=== PATIENT | female | born 1955 | race Caucasian/White ===

== ENCOUNTER 2018-10-18 01:57 | Inpatient (IN) | payer OTHER ==
[2018-10-18] MEDS ORDERED: NITROGLYCERIN SL TABS 0.4 MG TAB SUBLINGUAL STA (02:26)
[2018-10-18] MEDS ORDERED: ASPIRIN 81 MG PO STA (02:26)
[2018-10-18 02:37] LABS: Basophils # (A) 0.1 k/uL (0-0.2); Basophils % (A) 1 %; Eosinophils # (A) 0.4 k/uL (0-0.7); Eosinophils % (A) 4 %; HGB 15.1 gm/dL (11.4-16.0); Lymphocytes # (A) 4.6 k/uL (1.0-4.8); Lymphocytes % (A) 43 %; MCH 29.5 pg (25.0-35.0); MCHC 32.8 g/dL (31.0-37.0); Mean Platelet Volume 6.8; Monocytes # (A) 0.7 k/uL (0-1.0); Monocytes % (A) 6 %; Neutrophils # (A) 4.7 k/uL (1.3-7.7); Neutrophils % (A) 44 %; Platelet Count 290 k/uL (150-450); RBC 5.11 m/uL (3.80-5.40); RDW 12.7 % (11.5-15.5); WBC 10.8 k/uL (3.8-10.6)
[2018-10-18 02:45] LABS: Albumin 4.5 g/dL (3.5-5.0); Calcium 9.8 mg/dL (8.4-10.2); Magnesium 2.1 mg/dL (1.6-2.3); Potassium 4.1 mmol/L (3.5-5.1); Total Bilirubin 0.4 mg/dL (0.2-1.3); Total Protein 7.6 g/dL (6.3-8.2)
--- NOTE | 2018-10-18 02:52 | ED ---
Chest Pain HPI - General Chief Complaint: Chest Pain Stated Complaint: chest pain Time Seen by Provider: 10/18/18 02:26 Source: patient Mode of arrival: wheelchair Limitations: no limitations - History of Present Illness Initial Comments: This patient is a 63-year-old woman who presents to be evaluated for substernal chest pain. The patient states that the symptoms have developed around 1 AM. She had been sleeping, then woke up to use the bathroom. Patient states that she had a bowel movement and then when she went back to bed noted that she was having some substernal pain. She is not able to characterize the quality of the pain. It was moderate intensity, she did not notice any worsening or relieving factors. She states that she took 2 baby aspirin. The pain did subside after about 10 minutes or so. There were no associated symptoms. The patient notes that she had a couple of similar episodes to this over the previous weekend and she had gone into see her physician yesterday about them. Patient denies any anginal symptoms. She does note that her father and a sibling both had heart attacks in their 50s MD Complaint: chest pain Onset/Timin -: hour(s) Onset: during rest Pain Location: substernal Pain Radiation: RUE, LUE Severity: moderate Quality: other (Unable to characterize) Consistency: now resolved Improves With: nothing Worsens With: nothing Treatments Prior to Arrival: none - Related Data Home Medications Medication Instructions Recorded Confirmed Aspirin [Adult Low Dose Aspirin EC] 81 mg PO DAILY PRN 10/18/18 10/18/18 Cyclobenzaprine [Flexeril] 5 mg PO HS PRN 10/18/18 10/18/18 Loratadine 10 mg PO DAILY PRN 10/18/18 10/18/18 Multivitamin [Multivitamins Adult 1 tab PO DAILY 10/18/18 10/18/18 Gummies] Allergies Allergy/AdvReac Type Severity Reaction Status Date / Time latex AdvReac Unknown Verified 10/18/18 07:36 Review of Systems ROS Statement: Those systems with pertinent positive or pertinent negative responses have been documented in the HPI. ROS Other: All systems not noted in ROS Statement are negative. Constitutional: Denies: fever, chills Respiratory: Denies: cough, dyspnea Cardiovascular: Reports: chest pain. Denies: palpitations, orthopnea, edema, syncope Gastrointestinal: Denies: abdominal pain, nausea, vomiting, diarrhea, melena, hematochezia Genitourinary: Denies: dysuria, hematuria Musculoskeletal: Denies: back pain Skin: Denies: rash Neurological: Denies: headache, weakness, numbness EKG Findings - EKG Results: EKG: interpreted by RASTA, sinus rhythm (Rate approximately 85 bpm) - Dysrhythmias: Sinus rhythms and dysrhythmias: sinus rhythm - Blocks, Mcdade, Hypertrophy, ST Abn: AV and intraventricular conduction: right bundle branch block (fixed/intermittent, complete/incomplete) (Incomplete) QRS axis and voltage: left axis deviation (-30 to -90) Chamber hypertrophy or enlargement: only voltage criteria for left ventricular hypertrophy Past Medical History Past Medical History: No Reported History History of Any Multi-Drug Resistant Organisms: None Reported Past Surgical History: Tonsillectomy Past Psychological History: No Psychological Hx Reported Smoking Status: Never smoker Past Alcohol Use History: None Reported Past Drug Use History: None Reported - Past Family History Mother Family Medical History: COPD Father Family Medical History: Coronary Artery Disease (CAD), Myocardial Infarction ([place]) Additional Family Medical History / Comment(s): age 58 passed from [place] Brother(s) Family Medical History: Myocardial Infarction ([place]) Additional Family Medical History / Comment(s): [place] age 43 Sister(s) Additional Family Medical History / Comment(s): PVD Son(s) Family Medical History: No Reported History Daughter(s) Family Medical History: No Reported History General Exam Limitations: no limitations General appearance: alert, in no apparent distress Head exam: Present: atraumatic, normocephalic Eye exam: Present: normal appearance. Absent: scleral icterus, conjunctival injection ENT exam: Present: normal oropharynx Respiratory exam: Present: normal lung sounds bilaterally. Absent: respiratory distress, wheezes, rales, rhonchi, stridor Cardiovascular Exam: Present: regular rate, normal rhythm, systolic murmur (Grade 2 systolic ejection murmur at sternal border). Absent: diastolic murmur, rubs, gallop GI/Abdominal exam: Present: soft. Absent: distended, tenderness, guarding, rebound, rigid, mass, pulsatile mass Extremities exam: Present: normal inspection, normal capillary refill. Absent: pedal edema, calf tenderness Back exam: Present: normal inspection. Absent: CVA tenderness (R), CVA tenderness (L) Neurological exam: Present: alert Skin exam: Present: warm, dry, intact, normal color. Absent: rash Course Vital Signs 10/18/18 10/18/18 10/18/18 02:04 03:04 03:44 Temperature 98.2 F Pulse Rate 92 80 80 Respiratory 20 16 16 Rate Blood Pressure 199/109 179/96 165/92 O2 Sat by Pulse 97 96 98 Oximetry Chest Pain MDM - [facility] [place] Patient's 63-year-old woman with chest pain concerning for coronary disease. Patient be admitted for serial cardiac enzymes, telemetry monitoring, cardiology consultation. Initial workup negative. Disposition Clinical Impression: Chest pain, Elevated transaminase level Disposition: ADMITTED IP TO THIS HOSP Condition: Fair
[2018-10-18 03:00] LABS: D-Dimer 0.33 mg/L FEU (<0.60); Partial Thromboplastin Time 28.4 sec (22.0-30.0)
[2018-10-18] MEDS ORDERED: NITROGLYCERIN SL TABS 0.4 MG TAB SUBLINGUAL PRN (04:39)
--- NOTE | 2018-10-18 06:00 | XR ---
EXAM: XR Chest, 2 Views CLINICAL HISTORY: ITS.REASON XR Reason: Chest Pain TECHNIQUE: Frontal and lateral views of the chest. COMPARISON: No relevant prior studies available. FINDINGS: No cardiomegaly. Possible bronchial wall thickening. No overt edema, consolidation or other acute cardiopulmonary findings. IMPRESSION: Possible bronchial wall thickening.
--- NOTE | 2018-10-18 08:57 | P.CRDCN ---
History of Present Illness Consult date: 10/18/18 History of present illness: This is a 63-year-old female with no significant past medical history was been experiencing chest discomfort mostly at night. The pain is felt like a vague discomfort in the middle of the chest with radiation to both arms. Associated with mild nausea and indigestion feeling. The pain was intense and at a level of 9 on a scale of 1-10 and lasted about 20 minutes. Patient took couple of aspirins and came to hospital last night. Since admission patient is having mild vague discomfort but not bad enough to require any medication. Her EKG showed sinus rhythm with evidence of left axis deviation and incomplete right bundle-branch block. One set of enzymes is within normal limits. Chest x-ray showed evidence of bronchial wall thickening. Systemic fairly comfortable at this time. Her brother and father had a heart problem in their 40s and 50s. Her pains are suggestive of possible angina, though her risk factor profile is intermediate. The possibility of esophagitis also to be considered. We'll continue to monitor cardiac enzymes. We'll get an echocardiogram. If the enzymes are negative, patient could be evaluated by stress echo in the morning. Review of Systems As per HPI Past Medical History Past Medical History: No Reported History History of Any Multi-Drug Resistant Organisms: None Reported Past Surgical History: Tonsillectomy Past Anesthesia/Blood Transfusion Reactions: No Reported Reaction Past Psychological History: No Psychological Hx Reported Smoking Status: Never smoker Past Alcohol Use History: None Reported Past Drug Use History: None Reported - Past Family History Mother Family Medical History: COPD Father Family Medical History: Coronary Artery Disease (CAD), Myocardial Infarction ([place]) Additional Family Medical History / Comment(s): age 58 passed from [place] Brother(s) Family Medical History: Myocardial Infarction ([place]) Additional Family Medical History / Comment(s): [place] age 43 Sister(s) Additional Family Medical History / Comment(s): PVD Son(s) Family Medical History: No Reported History Daughter(s) Family Medical History: No Reported History Medications and Allergies Home Medications Medication Instructions Recorded Confirmed Type Aspirin [Adult Low Dose Aspirin EC] 81 mg PO DAILY PRN 10/18/18 10/18/18 History Cyclobenzaprine [Flexeril] 5 mg PO HS PRN 10/18/18 10/18/18 History Loratadine 10 mg PO DAILY PRN 10/18/18 10/18/18 History Multivitamin [Multivitamins Adult 1 tab PO DAILY 10/18/18 10/18/18 History Gummies] Allergies Allergy/AdvReac Type Severity Reaction Status Date / Time latex AdvReac Unknown Verified 10/18/18 07:36 Physical Exam Vitals: Vital Signs Temp Pulse Pulse Resp BP BP Pulse Ox 10/18/18 08:00 73 16 10/18/18 05:39 98.4 F 73 16 144/88 95 10/18/18 03:44 80 16 165/92 98 10/18/18 03:04 80 16 179/96 96 10/18/18 02:04 98.2 F 92 20 199/109 97 Intake and Output 10/17/18 10/18/18 10/18/18 22:59 06:59 14:59 Other: Voiding Method Toilet Toilet Weight 81.193 kg GENERAL EXAM: Patient is alert and oriented and doesn't appear to be in any acute distress HEENT: Normocephalic. Normal reaction of pupils, equal size, normal range of extraocular motion. No erythema or exudates in the throat. NECK: No masses, no nuchal rigidity. CHEST: No chest wall deformity. LUNGS: Equal air entry with no crackles or wheeze. HEART: S1 and S2 normal with no audible mumurs or gallops. Regular rhythm, femorals equal on both sides.. ABDOMEN: No hepatosplenomegaly, normal bowel sounds, no guarding or rigidity. SKIN: No rashes CENTRAL NERVOUS SYSTEM: No focal deficits. EXTREMITIES: No cyanosis, clubbing or edema. Results 10/18/18 02:20 10/18/18 02:20 Cardiac Enzymes 10/18/18 10/18/18 Range/Units 02:20 02:20 AST 61 H (14-36) U/L Troponin I <0.012 (0.000-0.034) ng/mL Coagulation 10/18/18 Range/Units 02:20 PT 11.0 (9.0-12.0) sec APTT 28.4 (22.0-30.0) sec CBC 10/18/18 Range/Units 02:20 WBC 10.8 H (3.8-10.6) k/uL RBC 5.11 (3.80-5.40) m/uL Hgb 15.1 (11.4-16.0) gm/dL Hct 46.0 (34.0-46.0) % Plt Count 290 (150-450) k/uL Comprehensive Metabolic Panel 10/18/18 Range/Units 02:20 Sodium 140 (137-145) mmol/L Potassium 4.1 (3.5-5.1) mmol/L Chloride 107 (98-107) mmol/L Carbon Dioxide 23 (22-30) mmol/L BUN 22 H (7-17) mg/dL Creatinine 0.85 (0.52-1.04) mg/dL Glucose 106 H (74-99) mg/dL Calcium 9.8 (8.4-10.2) mg/dL AST 61 H (14-36) U/L ALT 77 H (9-52) U/L Alkaline Phosphatase 144 H (38-126) U/L Total Protein 7.6 (6.3-8.2) g/dL Albumin 4.5 (3.5-5.0) g/dL Current Medications Generic Name Dose Route Start Last Admin Trade Name Freq PRN Reason Stop Dose Admin Aspirin 325 mg 10/19/18 09:00 Aspirin PO DAILY ERIC Nitroglycerin 0.4 mg 10/18/18 04:39 Nitrostat SUBLINGUAL Q5M PRN Chest Pain Intake and Output 10/17/18 10/18/18 10/18/18 22:59 06:59 14:59 Other: Voiding Method Toilet Toilet Weight 81.193 kg 10/18/18 02:20 10/18/18 02:20 EKG Interpretations (text) Sinus rhythm with a left axis deviation and also incomplete right bundle-branch block Assessment and Plan (1) Chest pain Current Visit: Yes Status: Acute Code(s): R07.9 - CHEST PAIN, UNSPECIFIED SNOMED Code(s): 86356234 Plan: The possibility of angina cannot be excluded. Patient will be treated with nitrates and aspirin. We'll may also try Mylanta and Maalox. We'll get an echo cardiogram done. If cardiac enzymes and echo are normal, we'll proceed with stress echocardiogram. If the cardiac enzymes are positive, patient may need a cardiac cath for definitive diagnosis.
[2018-10-18] MEDS ORDERED: NITROGLYCERIN OINT 1 INCH/GM PACKET TOPICAL STA (08:58)
[2018-10-18] MEDS ORDERED: ASPIRIN 81 MG PO PRN (12:46)
[2018-10-18] MEDS ORDERED: LORATADINE 10 MG TAB PO PRN (12:46)
--- NOTE | 2018-10-18 12:47 | P.HPIM ---
History of Present Illness Chief Complaint: Chest pain This very pleasant 63-year-old female who comes in to the ER for above-mentioned compress. The patient said that she was sleeping and woke up around 1 AM to go to the restroom. She said that she had a small bowel movement and she when she was coming back she suddenly started having pain in the substernal area which is radiating down to both upper arms. She was diaphoretic as well. She was less short of breath as well as that time. She took 2 aspirins and the pain started to subside. Her brought her over here for further evaluation and management. The patient otherwise does not complain of any abdominal pain, nausea and vomiting, or diarrhea constipation, no tingling numbness on in the extremities, and no itch or rash. Next ER course-temperature 98.2 pulse 92 respiration 20 blood pressure the time of admission was 199/109. Blood pressure the time examination was 125/80. Labwork done in the ER showed a BB 6) hemoglobin 15.1 platelets 290 d-dimer was 0.33 sodium 140 potassium 4.1 bun 22 creatinine 0.852 tropes were negative lipase was 82. Patient the time examination was not having any chest pain and was lying comfortably on the bed and answering questions, calmly and cooperatively. Review of Systems All systems: negative Past Medical History Past Medical History: No Reported History History of Any Multi-Drug Resistant Organisms: None Reported Past Surgical History: Tonsillectomy Past Anesthesia/Blood Transfusion Reactions: No Reported Reaction Past Psychological History: No Psychological Hx Reported Smoking Status: Never smoker Past Alcohol Use History: None Reported Past Drug Use History: None Reported - Past Family History Mother Family Medical History: COPD Father Family Medical History: Coronary Artery Disease (CAD), Myocardial Infarction ([place]) Additional Family Medical History / Comment(s): age 58 passed from [place] Brother(s) Family Medical History: Myocardial Infarction ([place]) Additional Family Medical History / Comment(s): [place] age 43 Sister(s) Additional Family Medical History / Comment(s): PVD Son(s) Family Medical History: No Reported History Daughter(s) Family Medical History: No Reported History Medications and Allergies Home Medications Medication Instructions Recorded Confirmed Type Aspirin [Adult Low Dose Aspirin EC] 81 mg PO DAILY PRN 10/18/18 10/18/18 History Cyclobenzaprine [Flexeril] 5 mg PO HS PRN 10/18/18 10/18/18 History Loratadine 10 mg PO DAILY PRN 10/18/18 10/18/18 History Multivitamin [Multivitamins Adult 1 tab PO DAILY 10/18/18 10/18/18 History Gummies] Allergies Allergy/AdvReac Type Severity Reaction Status Date / Time latex AdvReac Unknown Verified 10/18/18 07:36 Physical Exam Vitals: Vital Signs Temp Pulse Pulse Pulse Resp BP BP 10/18/18 12:00 73 84 16 10/18/18 11:16 97.7 F 84 16 125/80 10/18/18 08:00 73 16 10/18/18 05:39 98.4 F 73 16 144/88 10/18/18 03:44 80 16 165/92 10/18/18 03:04 80 16 179/96 10/18/18 02:04 98.2 F 92 20 199/109 Pulse Ox 10/18/18 12:00 10/18/18 11:16 95 10/18/18 08:00 10/18/18 05:39 95 10/18/18 03:44 98 10/18/18 03:04 96 10/18/18 02:04 97 Intake and Output 10/17/18 10/18/18 10/18/18 22:59 06:59 14:59 Other: Voiding Method Toilet Toilet Weight 81.193 kg On exam, alert and oriented x3. HEENT: Conjunctivae normal. eyes normal. NECK: No JVD. No thyroid enlargement. No LNs CARDIOVASCULAR: S1-S2 positive RESPIRATION: Breath sounds are equally both sides no rhonchi rales or wheezing ABDOMEN: Soft, nontender . No guarding. no masses palpable. No ascites, No hepatosplenomegaly.Bowel sounds heard. LEGS: No edema. no swelling NERVOUS SYSTEM: Cranial N 2-12 grossly normal. Moves all 4 limbs. No focal deficits. No sensory deficit. No signs of cerebellar dysfucntion. Skin: no ulcer no rash Results CBC & Chem 7: 10/18/18 02:20 10/18/18 02:20 Labs: Abnormal Lab Results - Last 24 Hours (Table) 10/18/18 10/18/18 Range/Units 02:20 02:20 WBC 10.8 H (3.8-10.6) k/uL BUN 22 H (7-17) mg/dL Glucose 106 H (74-99) mg/dL AST 61 H (14-36) U/L ALT 77 H (9-52) U/L Alkaline Phosphatase 144 H (38-126) U/L Thrombosis Risk Factor Assmnt - Choose All That Apply Any of the Below Risk Factors Present?: Yes Each Factor Represents 1 point: Obesity (BMI >25) Other Risk Factors: Yes Each Risk Factor Represents 2 Points: Age 61-74 years Other congenital or acquired thrombophilia - If yes, enter type in comment: No Thrombosis Risk Factor Assessment Total Risk Factor Score: 3 Thrombosis Risk Factor Assessment Level: Moderate Risk Assessment and Plan Assessment: - Chest pain rule out angina - Obesity - No significant past medical history Plan - Patient is admitted to observation with telemetry - We'll monitor patient troponin levels - Cardiology consulted and appreciate the recommendations - Plan is to have troponin levels monitored and stress test of troponins are negative. - We'll keep the patient nothing by mouth after midnight for possible stress test in the morning - DVT and GI prophylaxis - We'll order for lab work in the morning - Patient is an observation - Patient is full code Time with Patient: Greater than 30
[2018-10-19 03:31] LABS: Cholesterol 194 mg/dL (<200); HDL Cholesterol 53 mg/dL (40-60); LDL Cholesterol,Calculated 112 mg/dL (0-99); Triglycerides 143 mg/dL (<150)
[2018-10-19] MEDS ORDERED: SODIUM CHLORIDE 0.9% 1,000 ML in EMPTY BAG 1 BAG IV ONE (10:01)
[2018-10-19] MEDS ORDERED: ATORVASTATIN 80 MG TAB PO STA (10:01)
[2018-10-19] MEDS ORDERED: NITROGLYCERIN SL TABS 0.4 MG TAB SUBLINGUAL PRN (10:01)
[2018-10-19] MEDS ORDERED: ALPRAZolam 0.25 MG TAB PO PRN (10:01)
[2018-10-19] MEDS ORDERED: ALPRAZolam 0.5 MG TAB PO PRN (10:01)
[2018-10-19] MEDS: METOPROLOL TARTRATE 50 MG TAB PO SCH ×2 (10:30→20:58)
[2018-10-19] MEDS: ASPIRIN 325 MG TAB PO SCH (10:31)
[2018-10-19] MEDS: MULTIVITAMINS, THERA 1 EACH TAB PO SCH (10:32)
--- NOTE | 2018-10-19 10:55 | PN ---
PROGRESS NOTE A 63-year-old female who presented to the hospital with chest discomfort with exertion. She was seen by Dr. Hoskins yesterday and a stress echo was ordered. The patient underwent stress echo this morning and was abnormal. She had ischemia in the distal anterior wall, apical territory with ST depression inferolaterally as well as a wall motion abnormality with hypokinesis in the distal anterior and apical area which normalized in recovery. At this time, with average activity she did not have any chest discomfort, but during the stress echo with exertion, she did have atypical chest discomfort that brought her to the hospital. PHYSICAL EXAMINATION: Her vitals are stable, 97.9 degrees Fahrenheit, pulse rate in the 80s, blood pressure 141/87 mmHg. Head and neck examination is normal. Heart sounds are normal. Lungs are clear to auscultation. Extremities are warm, no edema. LABS: Reviewed. White count 10.8, hemoglobin 15.1. Cardiac enzymes are normal. LDL 112. IMPRESSION: 1. Exertion angina. 2. Abnormal stress echo with an ischemic response in the distal anterior/apical LV. SUGGEST: Continue aspirin 81 mg p.o. daily. Start metoprolol 50 mg twice daily, start atorvastatin 40 mg p.o. daily. I spoke to Dr. Hoskins and we will proceed with coronary angiography today. I did discuss this with the patient and her and they were agreeable with the plan. CRISTOBAL / BA: [id number] /
--- NOTE | 2018-10-19 10:55 | P.STRESS ---
- Stress Test Note Stress Test Results/Findings: Exam Performed: stress echo exercise Exam Date: 10/19/18 Reason for Exam: CHEST PAIN Height: 4 ft 11 in Weight: 81.193 kg Protocol: STRESS ECHO Stage: III Duration of Exercise: 7:02 Resting Heart Rate: 81 Resting Blood Pressure: 116/65 Maximum Achieved Heart Rate: 138 Maximum Achieved Blood Pressure: 186/71 85% PMHR: 135 100% PMHR: 159 METS: 8.3 Technologist Comment: Stress Test Results/Findings: Baseline heart rate and blood pressure normal Baseline twelve-lead ECG normal Patient exercised on a Murphy protocol She had her usual chest discomfort with exertion within about 45 minutes This was associated with ST depression initially upsloping 1-2 mm and later horizontal 1 mm Occasional PVCs noted during chest discomfort and ST segment depression inferolaterally Baseline 2-D echo may showed normal LV size and systolic function with a single wall motion normalities At peak exercise a new wall motion abnormalities with hypokinesis of the anterior wall was noted, distal anterior wall Normalization of segmental wall motion abnormalities noted with the recovery Normalization of ECG changes noted with the recovery Impression abnormal stress echo with an ischemic response in the distal anterior wall territory of the left ventricle This was discussed the patient and with Dr. Hoskins
[2018-10-19] MEDS ORDERED: IV FLUID CONTINUATION 1,000 ML IV ONE (11:30)
[2018-10-19] MEDS ORDERED: MIDAZOLAM (PF) 2 MG/2 ML VIAL IV ONE (11:45)
[2018-10-19] MEDS ORDERED: fentaNYL (PF) 50 MCG/ML 2 ML AMP IV ONE (11:45)
[2018-10-19] MEDS: LIDOCAINE 1% INJ 10MG/ML (20 ML MDV) SQ ONE ×2 (11:48→12:11)
[2018-10-19] MEDS ORDERED: VERAPAMIL SYRINGE (5 MG/10 ML) INTRAARTER ONE (11:56)
[2018-10-19] MEDS ORDERED: HEPARIN SODIUM 1,000 UN/ML (10ML VL) IV ONE (11:58)
[2018-10-19] MEDS ORDERED: IOPAMIDOL-370 100ML BTL INJ ONE (12:30)
[2018-10-19] MEDS ORDERED: IOPAMIDOL-370 50ML BTL INJ ONE (12:30)
[2018-10-19] MEDS ORDERED: NITROGLYCERIN OINT 1 INCH/GM PACKET TOPICAL ONE ×2 (12:31→12:32)
[2018-10-19] MEDS ORDERED: RX INFO: IV CONTRAST WAS GIVEN 1 EACH MISC MISCELLANE PRN (12:47)
[2018-10-19] MEDS ORDERED: fentaNYL (PF) 50 MCG/ML 2 ML AMP ONE (12:49)
--- NOTE | 2018-10-19 13:00 | ECHOF ---
Referral Reason:Chest pain and cardiomyopathy MEASUREMENTS -------- HEIGHT: 149.9 cm WEIGHT: 81.2 kg BP: 116/69 IVSd: 1.1 cm (0.6 - 1.1) LVIDd: 3.7 cm (3.9 - 5.3) LVPWd: 1.0 cm (0.6 - 1.1) IVSs: 1.2 cm LVIDs: 2.6 cm LVPWs: 1.4 cm LA Diam: 3.0 cm (2.7 - 3.8) RVIDd: 2.6 cm (< 3.3) LAESV Index (A-L): 18.87 ml/m Ao Diam: 2.8 cm (2.0 - 3.7) AV Cusp: 1.5 cm (1.5 - 2.6) EPSS: 0.4 cm MV E Ziggy: 0.88 m/s MV DecT: 115 ms MV A Ziggy: 1.18 m/s MV E/A Ratio: 0.74 AV maxP.23 mmHg AV meanP.70 mmHg RAP: 5.00 mmHg RVSP: 26.52 mmHg MV EF SLOPE: 62.14 mm/s (70 - 150) MV EXCURSION: 1.11 cm (> 18.000) FINDINGS -------- Sinus rhythm. This was a technically good study. The left ventricular size is normal. Left ventricular wall thickness is normal. Overall left vent ricular systolic function is normal with, an EF between 60 - 65 %. The right ventricle is normal in size. Left atrium is normal size by volume. The right atrium is normal in size and function. Interatrial and interventricular septum intact. There is mild aortic valve sclerosis without stenosis. Trace to mild aortic regurgitation. There is no evidence of aortic stenosis. Peak/mean gradient across the valve is 21.23mmHg / 9.70mmHg. The mitral valve is normal. Mild tricuspid regurgitation present. Right ventricular systolic pressure is normal at < 35 mmHg. Trace/mild (physiologic) pulmonic regurgitation. The aortic root size is normal. The inferior vena cava was not well visualized. There is no pericardial effusion. CONCLUSIONS -------- 1. Sinus rhythm. 2. This was a technically good study. 3. The left ventricular size is normal. 4. Left ventricular wall thickness is normal. 5. Overall left ventricular systolic function is normal with, an EF between 60 - 65 %. 6. The right ventricle is normal in size. 7. Left atrium is normal size by volume. 8. The right atrium is normal in size and function. 9. Interatrial and interventricular septum intact. 10. There is mild aortic valve sclerosis without stenosis. 11. Trace to mild aortic regurgitation. 12. Peak/mean gradient across the valve is 21.23mmHg / 9.70mmHg. 13. The mitral valve is normal. 14. Mild tricuspid regurgitation present. 15. Right ventricular systolic pressure is normal at < 35 mmHg. 16. Trace/mild (physiologic) pulmonic regurgitation. 17. The aortic root size is normal. 18. The inferior vena cava was not well visualized. 19. There is no pericardial effusion. TITLE CLERK: TED Roman
[2018-10-19] MEDS ORDERED: MD COMMUNICATION TO PHARMACY 1 EACH MISC PO ONE ×4 (13:23→13:28)
[2018-10-19 13:36] LABS: Glucose,Whole Blood 81 mg/dL (75-99)
[2018-10-19 14:52] LABS: Magnesium 2.1 mg/dL (1.6-2.3)
--- NOTE | 2018-10-19 15:03 | P.GSCN ---
History of Present Illness Consult date: 10/19/18 Reason for Consult: Severe triple-vessel coronary artery disease, surgical recommendations Requesting physician: Anthony Hoskins History of present illness: This is a 63-year-old active female patient who follows in an outpatient basis with Dr. Gogo Burroughs. She has a previous medical history of hypertension cu rrently off all medications, obesity, and family history of premature coronary artery disease. She presented to [facility] emergency room with complaints of intermittent chest pain over the prior week. She described the pain as being located in the center of her chest with radiation to both arms. She denied any shortness of breath, diaphoresis, nausea, vomiting, fevers, lightheadedness or dizziness, or any sick contacts. She had an EKG completed in the emergency room which demonstrated no acute ischemic disease. Chest x-ray demonstrated no acute process. Troponins were negative 3. She was kept in the observation unit and a stress test was completed this morning which was abnormal and which demonstrated new wall motion abnormalities with hypokinesis of the anterior wall. She was recommended to undergo heart catheterization which was completed today by Dr. Hoskins and which demonstrated proximal LAD stenosis 99%, first diagonal branch stenosis 95%, and PDA stenosis 80-90%. Transthoracic echocardiogram was also completed with normal left ventricular systolic funct ion, EF 60-65%, trace to mild aortic regurgitation without evidence of aortic stenosis, no mitral valve disease, and mild tricuspid regurgitation. Due to the findings on her catheterization Dr. Leigh from cardiothoracic surgery was consulted for surgical revascularization recommendations. Review of Systems Review of systems was completed and was negative except as noted in the HPI Past Medical History Past Medical History: No Reported History, Hypertension History of Any Multi-Drug Resistant Organisms: None Reported Past Surgical History: Tonsillectomy Past Anesthesia/Blood Transfusion Reactions: No Reported Reaction Past Psychological History: No Psychological Hx Reported Smoking Status: Never smoker Past Alcohol Use History: None Reported Past Drug Use History: None Reported - Past Family History Mother Family Medical History: COPD Father Family Medical History: Coronary Artery Disease (CAD), Myocardial Infarction ([place]) Additional Family Medical History / Comment(s): age 58 passed from [place] Brother(s) Family Medical History: Myocardial Infarction ([place]) Additional Family Medical History / Comment(s): [place] age 43 Sister(s) Additional Family Medical History / Comment(s): PVD Son(s) Family Medical History: No Reported History Daughter(s) Family Medical History: No Reported History Medications and Allergies Home Medications Medication Instructions Recorded Confirmed Type Aspirin [Adult Low Dose Aspirin EC] 81 mg PO DAILY PRN 10/18/18 10/18/18 History Cyclobenzaprine [Flexeril] 5 mg PO HS PRN 10/18/18 10/18/18 History Loratadine 10 mg PO DAILY PRN 10/18/18 10/18/18 History Multivitamin [Multivitamins Adult 1 tab PO DAILY 10/18/18 10/18/18 History Gummies] Allergies Allergy/AdvReac Type Severity Reaction Status Date / Time latex AdvReac Unknown Verified 10/18/18 07:36 Surgical - Exam Vital Signs Temp Pulse Resp BP Pulse Ox 98.2 F 92 20 199/109 97 10/18/18 02:04 10/18/18 02:04 10/18/18 02:04 10/18/18 02:04 10/18/18 02:04 - General well developed, well nourished, no distress, no pain, obese - Eyes PERRL, normal ocular movement - ENT no hearing loss - Neck no masses, no bruits, trachea midline - Respiratory Lungs sounds clear bilaterally. Respirations even, nonlabored. Currently on room air with oxygen saturation 93%. No chest wall deformities. - Cardiovascular S1, S2 present. Regular rate and rhythm, sinus rhythm on telemetry. Palpable p eripheral pulses bilaterally. No edema present. No calf pain or tenderness noted. Negative Braden's test to left radial artery. - Abdomen Abdomen: soft, non tender, bowel sounds - Genitourinary Deferred - Rectum Deferred - Integumentary no rash, no growths, no abnormal pigmentation - Neurologic normal coordination, normal sensation - Musculoskeletal normal posture - Psychiatric oriented to time, oriented to person, oriented to place, speech is normal, memory intact Results - Labs 10/18/18 02:20 10/18/18 02:20 Abnormal Lab Results - Last 24 Hours (Table) 10/18/18 Range/Units 02:20 LDL Cholesterol, Calc 112 H (0-99) mg/dL Diabetes panel 10/18/18 Range/Units 02:20 Triglycerides 143 (<150) mg/dL HDL Cholesterol 53 (40-60) mg/dL - Imaging Chest x-ray: report reviewed, image reviewed US - kidney/bladder: image reviewed Additional studies: Heart catheterization films reviewed with Dr. Leigh Assessment and Plan Assessment: 1. Severe triple-vessel coronary artery disease 2. Hypertension 3. Family history of premature coronary artery disease Plan: The patient was seen and examined at the bedside with Dr. Leigh. Chart/diagnostics were reviewed including heart catheterization films. We offered the patient coronary artery bypass graft surgery. The usual perioperative course was discussed in detail the patient and her , all risks and benefits were explained, all questions were answered, and the patient consented to surgery. We initiated preoperative testing. Currently her plan is for urgent coronary artery bypass graft surgery 3-4 vessels with left internal mammary artery harvest, endoscopic vein harvesting, and intraoperative transesophageal echocardiogram on 10/21/2018 pending the outcome of preoperative testing. 5 m walk test will be completed once patient is able to be ambulatory. STS risk score will be calculated and discussed with the patient once all preoperative testing has been completed. We recommend continuing aspirin, statin, beta patricia therapy. Incentive spirometry has been ordered and should be encouraged. Dr. Martinez has been consulted for pulmonary recommendations and ventilator management post surgery. Medical management of other comorbid conditions per primary care service. Thank you Dr. Hoskins for this consult. We look forward to participating in the care of this patient. Time with Patient: Greater than 30
--- NOTE | 2018-10-19 15:06 | P.CNPUL ---
History of Present Illness Consult date: 10/19/18 Reason for consult: chest pain Chief complaint: Chest pain, coronary artery disease, possible bypass surgery History of present illness: 63-year-old female patient with no essential history/cardiac history and the patient is known to have family history of coronary artery disease and previous CA, who came in for chest discomfort with radiation to both arms. The patient was also expressing some mild nausea and indigestion. The patient was admitted for that reason. EKG showed sinus rhythm with evidence of left axis deviation and incomplete right bundle-branch block. One set of cardiac enzymes was within normal limits. Chest exit showed no significant abnormalities. Note that the patient has strong family history of coronary disease including the brother and the father both having heart problems and their young age. Based on all this, further workup was done including an echo that showed an ejection fraction of 60-65% and the patient and there was no other significant valvular abnormalities. There was no aortic stenosis. Subsequently, the patient was given the stress of that came back abnormal and the patient underwent cardiac catheterization that showed multivessel coronary artery disease. The plan is for coronary artery bypass surgery and this will be done over the weekend. I'll make a station was requested based on this. The patient is a lifetime nonsmoker. No 70 asthma. Most of COPD. No 70 chronic lung disease. Does not utilize any form of respiratory medications and inhalers. Review of Systems Constitutional: Denies chills, Denies fever Eyes: right decreased vision, denies blurred vision, denies bulging eye Ears: deny: decreased hearing, ear discharge, earache, tinnitus Ears, nose, mouth and throat: Denies headache, Denies sore throat Cardiovascular: Reports chest pain, Reports decreased exercise tolerance Respiratory: Reports as per HPI Gastrointestinal: Reports as per HPI Genitourinary: Reports as per HPI Menstruation: Reports as per HPI Musculoskeletal: Reports as per HPI Musculoskeletal: absent: ankle pain, ankle stiffness, ankle swelling Integumentary: Reports as per HPI Neurological: Reports as per HPI Psychiatric: Reports as per HPI Endocrine: Reports as per HPI Hematologic/Lymphatic: Reports as per HPI Past Medical History Past Medical History: No Reported History, Coronary Artery Disease (CAD), Hy pertension History of Any Multi-Drug Resistant Organisms: None Reported Past Surgical History: Tonsillectomy Past Anesthesia/Blood Transfusion Reactions: No Reported Reaction Past Psychological History: No Psychological Hx Reported Smoking Status: Never smoker Past Alcohol Use History: None Reported Past Drug Use History: None Reported - Past Family History Mother Family Medical History: COPD Father Family Medical History: Coronary Artery Disease (CAD), Myocardial Infarction ([place]) Additional Family Medical History / Comment(s): age 58 passed from [place] Brother(s) Family Medical History: Myocardial Infarction ([place]) Additional Family Medical History / Comment(s): [place] age 43 Sister(s) Additional Family Medical History / Comment(s): PVD Son(s) Family Medical History: No Reported History Daughter(s) Family Medical History: No Reported History Medications and Allergies Home Medications Medication Instructions Recorded Confirmed Type Aspirin [Adult Low Dose Aspirin EC] 81 mg PO DAILY PRN 10/18/18 10/18/18 History Cyclobenzaprine [Flexeril] 5 mg PO HS PRN 10/18/18 10/18/18 History Loratadine 10 mg PO DAILY PRN 10/18/18 10/18/18 History Multivitamin [Multivitamins Adult 1 tab PO DAILY 10/18/18 10/18/18 History Gummies] Allergies Allergy/AdvReac Type Severity Reaction Status Date / Time latex AdvReac Unknown Verified 10/18/18 07:36 Physical Exam Vitals: Vital Signs Temp Pulse Pulse Pulse Resp BP BP 10/19/18 14:30 72 14 151/96 10/19/18 14:15 73 15 150/112 10/19/18 14:00 72 15 150/112 10/19/18 13:45 71 11 L 150/92 10/19/18 13:38 98.0 F 75 17 10/19/18 11:15 97.5 F L 82 18 144/97 10/19/18 10:30 104 H 10/19/18 10:15 94 10/19/18 10:00 96 10/19/18 09:45 104 H 10/19/18 09:37 100 10/19/18 08:00 82 79 80 18 10/19/18 07:45 88 10/19/18 07:30 84 10/19/18 07:15 79 10/19/18 07:00 97.9 F 81 80 18 141/87 10/19/18 06:45 78 10/19/18 06:30 74 10/19/18 06:15 80 07/05/19 06:00 84 10/19/18 05:45 95 10/19/18 05:30 82 10/19/18 05:15 77 10/19/18 05:00 77 10/19/18 04:45 71 10/19/18 04:30 76 10/19/18 04:15 72 10/19/18 04:00 98.0 F 77 80 16 137/81 10/19/18 03:45 103 H 10/19/18 03:30 80 10/19/18 03:15 73 10/19/18 03:00 81 10/19/18 02:45 71 10/19/18 02:41 79 16 10/19/18 02:30 73 10/19/18 02:15 76 10/19/18 02:00 72 10/19/18 01:45 71 10/19/18 01:30 74 10/19/18 01:15 74 10/19/18 01:00 73 10/19/18 00:45 77 10/19/18 00:30 81 10/19/18 00:15 78 10/19/18 00:00 81 10/18/18 23:45 77 10/18/18 23:30 77 10/18/18 23:27 98.2 F 87 16 122/71 10/18/18 23:15 81 10/18/18 23:05 79 16 10/18/18 23:00 79 10/18/18 22:45 78 10/18/18 22:30 77 10/18/18 19:47 80 80 16 10/18/18 19:09 97.7 F 84 16 128/81 10/18/18 16:00 98.3 F 73 83 14 116/82 Pulse Ox 10/19/18 14:30 10/19/18 14:15 10/19/18 14:00 93 L 10/19/18 13:45 94 L 10/19/18 13:38 94 L 10/19/18 11:15 96 10/19/18 10:30 10/19/18 10:15 10/19/18 10:00 10/19/18 09:45 10/19/18 09:37 10/19/18 08:00 10/19/18 07:45 10/19/18 07:30 10/19/18 07:15 10/19/18 07:00 94 L 10/19/18 06:45 10/19/18 06:30 10/19/18 06:15 10/19/18 06:00 10/19/18 05:45 10/19/18 05:30 10/19/18 05:15 10/19/18 05:00 10/19/18 04:45 10/19/18 04:30 10/19/18 04:15 10/19/18 04:00 95 10/19/18 03:45 10/19/18 03:30 10/19/18 03:15 10/19/18 03:00 10/19/18 02:45 10/19/18 02:41 10/19/18 02:30 10/19/18 02:15 10/19/18 02:00 10/19/18 01:45 10/19/18 01:30 10/19/18 01:15 10/19/18 01:00 10/19/18 00:45 10/19/18 00:30 10/19/18 00:15 10/19/18 00:00 10/18/18 23:45 10/18/18 23:30 10/18/18 23:27 94 L 10/18/18 23:15 10/18/18 23:05 10/18/18 23:00 10/18/18 22:45 10/18/18 22:30 10/18/18 19:47 10/18/18 19:09 97 10/18/18 16:00 95 Intake and Output 10/19/18 10/19/18 10/19/18 06:59 14:59 22:59 Intake Total 181 Balance 181 Intake: IV 181 Sodium Chloride 0.9% 1, 81 000 ml In Empty Bag 1 bag @ 1 ML/KG/HR 81.193 mls/ hr IV .[id number] ONE Rx#: [id number] Other: Voiding Method Toilet Toilet # Voids 1 1 Weight 81.193 kg The patient appeared well nourished and normally developed. Vital signs as documented. Head exam is unremarkable. No scleral icterus or corneal arcus noted. Neck is without jugular venous distension, thyromegaly, or carotid brui ts. Carotid upstrokes are brisk bilaterally. Lungs are clear to auscultation and percussion. Cardiac exam reveals the PMI to be normally sized and situated. Rhythm is regular. First and second heart sounds normal. No murmurs, rubs or gallops. Abdominal exam reveals normal bowel sounds, no masses, no organomegaly and no aortic enlargement. Extremities are nonedematous and both femoral and pedal pulses are normal.Examination of the skin revealed no evidence of significant rashes, suspicious appearing nevi or other concerning lesions. Neurologically awake and alert and there is no focal neurological deficits. Results - Laboratory Findings CBC and BMP: 10/18/18 02:20 10/18/18 02:20 PT/INR, D-dimer PT 11.0 sec (9.0-12.0) 10/18/18 02:20 INR 1.0 (<1.2) 10/18/18 02:20 D-Dimer 0.33 mg/L FEU (<0.60) 10/18/18 02:20 Abnormal lab findings: Abnormal Labs 10/18/18 10/18/18 10/18/18 02:20 02:20 02:20 WBC 10.8 H BUN 22 H Glucose 106 H AST 61 H ALT 77 H Alkaline Phosphatase 144 H LDL Cholesterol, Calc 112 H - Diagnostic Findings Chest x-ray: image reviewed Assessment and Plan Plan: 1 symptomatic multivessel coronary artery disease, awaiting cardiac bypass surgery. This would doubt the next 24-48 hours. The patient is currently in intensive care unit. She is free of any chest pain 2 chest pain secondary to above 3 strong family history for coronary artery disease 4 hypertension Plan Keep the patient in intensive care unit. Reviewed the records. The patient will need a coronary artery bypass surgery. This will be done probably within next 24-48 hours. The patient will be undergoing definitive four-vessel bypass surgery. We're going to be involved in the patient's pulmonary care postop. The patient has stable pulmonary status. Obtain a bedside spirometry. Continue using incentive spirometer. We'll continue to follow.
--- NOTE | 2018-10-19 16:39 | US ---
EXAMINATION TYPE: US carotid duplex BILAT DATE OF EXAM: 10/19/2018 COMPARISON: NONE CLINICAL HISTORY: Pre-Op Cardiac Surgery. Pre-Op EXAM MEASUREMENTS: RIGHT: Peak Systolic Velocity (PSV) cm/sec ----- Right CCA: 54.0 ----- Right ICA: 95.6 ----- Right ECA: 95.6 ICA/CCA ratio: 1.8 RIGHT: End Diastole cm/sec ----- Right CCA: 20.0 ----- Right ICA: 40.0 ----- Right ECA: 16.7 LEFT: Peak Systolic Velocity (PSV) cm/sec ----- Left CCA: 54.0 ----- Left ICA: 87.9 ----- Left ECA: 91.8 ICA/CCA ratio: 1.6 LEFT: End Diastole cm/sec ----- Left CCA: 20.0 ----- Left ICA: 42.6 ----- Left ECA: 15.4 VERTEBRALS (direction of flow): Right Vertebral: Antegrade Left Vertebral: Unable to visualize Rhythm: Normal Mild plaque bilaterally, soft plaque within left CCA, heterogeneous plaque within bilateral bulbs wit hout evidence of significant elevated velocities bilaterally IMPRESSION: There is antegrade flow in the vertebral arteries. The images and measurements suggest l ess than 20% stenosis in both internal carotid arteries. Criteria for Assigning % of Stenosis / Diameter reduction (Estimation based on the indirect measurements of the internal carotid artery velocities (ICA PSV). 1. Normal (no stenosis)=ICA PSV < 125 cm/s: ratio < 2.0: ICA EDV<40 cm/s. 2. Less than 50% stenosis=ICA PSV < 125 cm/s: ratio < 2.0: ICA EDV<40 cm/s. 3. 50 to 69% stenosis=ICA PSV of 125 to 230 cm/s: ration 2.0 ? 4.0: ICA EDV 40-100 cm/s. 4. Greater than 70% stenosis to near occlusion= ICA PSV > 230 cm/s: ratio > 4.0: ICA EDV > 100 cm/s. 5. Near occlusion= ICA PSV velocities may be low or undetectable: variable ratio and ICA EDV. 6. Total occlusion=unable to detect flow.
[2018-10-19] MEDS ORDERED: HEPARIN SODIUM,PORCINE 5,000 UNIT/ML 1 ML VIAL IV PRN (17:40)
[2018-10-19] MEDS: HEPARIN SOD,PORK IN 0.45% NACL 25,000 UNIT in 0.45% NACL 1 250ML.BAG IV SCH (18:16)
[2018-10-19 18:39] LABS: Partial Thromboplastin Time 26.2 sec (22.0-30.0); Prothrombin Time 10.7 sec (9.0-12.0)
[2018-10-19 19:01] LABS: Hepatitis A Antibody IgM Non-Reactive (Non-Reactive); Hepatitis B Core IgM Non-Reactive (Non-Reactive)
[2018-10-19 19:41] LABS: Hemoglobin A1C 6.1 % (4.0-6.0)
--- NOTE | 2018-10-19 19:43 | P.PN ---
Progress Note - Text Went in to see the patient in CDU. She is in [address]. Could see her today. Will f/u tomorrow
[2018-10-19 22:23] LABS: Appearance,Urine Clear (Clear); Bilirubin,Urine Negative (Negative); Blood,Urine Negative (Negative); Color,Urine Light Yellow; Glucose,Urine (UA) Negative (Negative); Ketones,Urine Negative (Negative); Leukocyte Esterase,Urine Negative (Negative); Nitrite,Urine Negative (Negative); Protein,Urine Negative (Negative); Specific Gravity,Urine 1.012 (1.001-1.035); Urobilinogen,Urine <2.0 mg/dL (<2.0)
[2018-10-19] MEDS: MUPIROCIN 2% OINT 22 GM TUBE NASAL SCH (23:39)
[2018-10-20 06:11] LABS: Basophils # (A) 0.1 k/uL (0-0.2); Basophils % (A) 1 %; Eosinophils # (A) 0.2 k/uL (0-0.7); Eosinophils % (A) 2 %; HCT 45.1 % (34.0-46.0); HGB 14.6 gm/dL (11.4-16.0); Lymphocytes # (A) 3.9 k/uL (1.0-4.8); Lymphocytes % (A) 40 %; MCH 29.6 pg (25.0-35.0); MCHC 32.3 g/dL (31.0-37.0); MCV 91.5 fL (80.0-100.0); Mean Platelet Volume 7.2; Monocytes # (A) 0.5 k/uL (0-1.0); Monocytes % (A) 5 %; Neutrophils # (A) 4.9 k/uL (1.3-7.7); Neutrophils % (A) 50 %; Platelet Count 275 k/uL (150-450); RBC 4.92 m/uL (3.80-5.40); RDW 14.3 % (11.5-15.5); WBC 9.9 k/uL (3.8-10.6)
[2018-10-20 06:21] LABS: ALT 66 U/L (9-52); AST 50 U/L (14-36); African American GFR (CKD) >90 (>60 ml/min/1.73 sqM); Albumin 3.9 g/dL (3.5-5.0); Alkaline Phosphatase 96 U/L (38-126); Anion Gap 9 mmol/L; Blood Urea Nitrogen 16 mg/dL (7-17); Calcium 9.2 mg/dL (8.4-10.2); Carbon Dioxide 24 mmol/L (22-30); Chloride 107 mmol/L (98-107); Glucose 99 mg/dL (74-99); Partial Thromboplastin Time 65.4 sec (22.0-30.0); Potassium 4.1 mmol/L (3.5-5.1); Prothrombin Time 10.8 sec (9.0-12.0); Sodium 140 mmol/L (137-145); Total Bilirubin 0.8 mg/dL (0.2-1.3); Total Protein 6.8 g/dL (6.3-8.2)
[2018-10-20] MEDS: MUPIROCIN 2% OINT 22 GM TUBE NASAL SCH ×2 (08:46→20:48)
[2018-10-20] MEDS: ASPIRIN 325 MG TAB PO SCH (08:46)
[2018-10-20] MEDS: MULTIVITAMINS, THERA 1 EACH TAB PO SCH (08:50)
[2018-10-20] MEDS: METOPROLOL TARTRATE 50 MG TAB PO SCH ×2 (08:52→20:48)
--- NOTE | 2018-10-20 08:57 | PN ---
PROGRESS NOTE Mrs. Beltran is a 63-year-old female with a strong family history of coronary disease who presented to the hospital with symptoms of unstable angina, had an abnormal stress test, subsequently underwent cardiac catheterization, was found to have critical stenosis involving the LAD, diagonal branch and branch of the diagonal branch as well as the right PDA origin. She was evaluated by Dr. Leigh and scheduled to undergo coronary artery bypass grafting tomorrow. She is feeling well this morning, denying any chest pain. Her breathing has been stable. She denies any dizziness or palpitation. No nausea. She continues to be on aspirin once a day, Lipitor 40 mg daily, IV heparin, metoprolol tartrate 50 mg twice a day. PHYSICAL EXAMINATION: Blood pressure 107/70 with a heart rate in the 70s. LUNGS: Clear. HEART: Regular rate and rhythm S1, S2. No S3. No rub. ABDOMEN: Soft, nontender. EXTREMITIES: No edema. Right radial pulse is intact. Right groin no hematoma. LAB DATA: Lab data revealed a hemoglobin 14.6, BUN and creatinine 16 and 0.81. IMPRESSION: 1. Severe coronary artery disease scheduled for coronary artery bypass grafting. 2. Hyperlipidemia. 3. Strong family history of coronary artery disease. RECOMMENDATIONS: We will proceed with coronary artery bypass grafting tomorrow. In the meantime, we will continue the present therapy. MMODL / IJN: [id number] /
[2018-10-20] MEDS ORDERED: ATORVASTATIN 40 MG TAB PO SCH (09:00)
--- NOTE | 2018-10-20 10:24 | P.PN ---
Subjective Progress Note Date: 10/20/18 Principal diagnosis: Severe triple-vessel coronary artery disease, history of hypertension, obesity, mildly elevated liver transaminase and family history of premature coronary art wiley disease with her brother having a myocardial infarction at age 43. This is a 63-year-old female patient who follows with Dr. Burroughs on an outpatient basis. She presented to the emergency department here at [facility] with complaints of intermittent episodes of chest pain which have been present off and on for about a 1 week. Due to her complaints of chest pain her primary care physician recommended she come to the emergency department. On admission a 12-lead EKG was completed which demonstrated no acute ischemic disease. Her troponins were negative 3, although due to her complaints of chest pain she was seen by Dr. Hosikns from [facility]. The heart Was completed which demonstrated a 99% stenosis to her proximal left anterior descending coronary artery, a 95% stenosis to her diagonal branch and an 80-90% stenosis to her posterior descending coronary artery. For further evaluation a 2-D echocardiogram was completed which showed her to have a normal left ventricular systolic function with an ejection fraction 60-65%, trace to mild aortic valve regurgitation without evidence of aortic stenosis, mild tricuspid valve regurgitation and no mitral valve disease. Subsequently, due to the findings on her heart catheterization a consult was pl aced to Dr. Darien Leigh from cardiothoracic surgery. Dr. Leigh discussed with the patient and her the findings on the heart catheterization and recommendations were to proceed with an urgent coronary artery bypass grafting surgery 3-4 vessels. The risks and benefits were discussed with the patient and her including the STS risk score. The patient's wishes were to proceed with a myocardial revascularization surgery. The patient is currently sitting up to the bedside chair in her room in the intensive care unit. She denies any complaints of chest pain or shortness of breath. Her bedside FEV1 results were reviewed and showed 85% of predicted value. A 5 m walk test was completed with time 1:6.86 seconds, time 2: 5.77 seconds, time 3:5.46 seconds. Preoperative teaching was reinforced with the patient and her and their questions were answered to the best of my ability. Objective - Vital Signs Vital signs: Vital Signs Temp 98.1 F 10/20/18 08:00 Pulse 76 10/20/18 08:00 Resp 18 10/20/18 08:00 BP 134/86 10/20/18 08:00 Pulse Ox 94 L 10/20/18 08:00 Intake & Output 10/19/18 10/20/18 10/20/18 18:59 06:59 18:59 Intake Total 181 162 Output Total 850 Balance 181 -688 Weight 81.193 kg 80.9 kg Intake: IV 181 162 Sodium Chloride 0.9% 1, 81 162 000 ml In Empty Bag 1 bag @ 1 ML/KG/HR 81.193 mls/ hr IV .[id number] ONE Rx#: [id number] Output: Urine 850 Other: Voiding Method Bedpan Bedside Commode Bedside Commode # Voids 1 - Constitutional General appearance: Present: cooperative, no acute distress, obese - Respiratory Details: Lungs sounds essentially clear throughout. Respirations are symmetrical and nonlabored. Oxygen saturation are 92% on room air. Achieving 2001 L on her incentive spirometry. - Cardiovascular Details: Regular rhythm and rate. S1 and S2 present, negative for S3 or gallop. Systolic murmur 2/6 present heard best to her right sternal border. No edema present. Sequential compression devices in place to bilateral lower extr emities. Bedside telemetry showing normal sinus rhythm heart rate 74. - Gastrointestinal Gastrointestinal Comment(s): Abdomen is soft, nontender and nondistended. Active bowel sounds all 4 abdominal quadrants. No guarding or rigidity. No organomegaly. - Genitourinary Genitourinary Comment(s): Voiding clear yellow urine. - Integumentary Integumentary Comment(s): Skin is warm and dry. No clubbing or cyanosis is present. No rash or abnormal pigmentation present. - Neurologic Neurologic: Present: CNII-XII intact - Musculoskeletal Musculoskeletal: Present: gait normal, strength equal bilaterally - Psychiatric Psychiatric: Present: A&O x's 3, appropriate affect, intact judgment & insight - Allied health notes Allied health notes reviewed: nursing - Labs CBC & Chem 7: 10/20/18 05:38 10/20/18 05:38 Labs: Abnormal Lab Results - Last 24 Hours (Table) 10/19/18 10/19/18 10/20/18 Range/Units 02:20 23:32 05:38 APTT 51.0 H (22.0-30.0) sec Hemoglobin A1c 6.1 H (4.0-6.0) % AST 50 H (14-36) U/L ALT 66 H (9-52) U/L 10/20/18 Range/Units 05:38 APTT 65.4 H (22.0-30.0) sec Hemoglobin A1c (4.0-6.0) % AST (14-36) U/L ALT (9-52) U/L Microbiology - Last 24 Hours (Table) 10/19/18 21:00 Urine Culture - Preliminary Urine,Clean Catch 10/19/18 16:28 Nasal Screen MRSA/MSSA - Preliminary Nasal Swab - Imaging and Cardiology Vein mapping results reviewed. 2-D echocardiogram results reviewed. Bedside FEV1 results reviewed. Assessment and Plan Assessment: 1. Severe triple-vessel coronary artery disease 2. Unstable angina 3. Hypertension 4. Family history of premature coronary artery disease 5. Obesity 6. Elevated liver transaminase Plan: 1. Continue to maximize medical therapy, continue aspirin, beta patricia and statin. 2. Hold heparin drip at 6 AM tomorrow morning 10/21/2018. 3. STS risk score was calculated and discussed with the patient by Dr. Darien Leigh. 4. Encourage use of her incentive spirometry every hour while awake. 5. Encourage ambulation as tolerated. 5 m walk test completed and documented. 6. Nothing by mouth after midnight. 7. Medical management per primary care service recommendations. 8. The patient is scheduled for myocardial revascularization surgery for tomorrow 10/21/2018 to be performed by Dr. Darien Leigh. 9. Pulmonary management per Dr. Martinez. 10. Continue to discuss and reinforce preoperative teaching. 11. GI and DVT prophylaxis. 12. More recommendations to follow based on patient's clinical course. Time with Patient: Greater than 30
--- NOTE | 2018-10-20 10:48 | P.CARDCATH ---
Date of Procedure: 10/20/18 Preoperative Diagnosis: Unstable angina and positive stress test Postoperative Diagnosis: Critical lesion involving the LAD diagonal and also PDA Description of Procedure: HISTORY:. This is 63-year-old female was admitted to the hospital with chest pain of recent origin. EKGs and cardiac enzymes are negative. Stress echo was positive and patient is advised to have a cardiac cath for definitive diagnosis CONSENT:I have discussed the risks, benefits and alternative therapies for the above-mentioned procedure and for both sedation/analgesia as well as necessary blood product administration, if indicated, as they pertain to this patient. The patient has indicated understanding and acceptance of the risks and procedures discussed. PROCEDURE: Patient was brought to the lab in a fasting state. Patient was given some IV sedation. The right wrist is infiltrated with lidocaine. Right femoral artery was entered using Seldinger technique. A guidewire was advanced into the subclavian vein. However the wide could not be advanced into the ascending aorta. The wires and catheters of going into descending aorta. After multiple attempts, the procedure was abandoned and cardiac catheterization was performed on the right groin approach TR band was applied for hemostasis The right groin is infiltrated with lidocaine and right femoral artery was entered using Seldinger technique. A 6-[place] catheter was left in place and selective coronary arteriography and left ventriculography was performed. Patient tolerated the procedure well. Femoral angiogram was performed and Angio-Seal was applied for hemostasis. No immediate complications were noted and patient was transferred to [facility] in a stable condition Conscious Sedation: Versed 1mg Fentanyl 50 g Duration 30minutes HEMODYNAMICS: The aortic pressure was 140/70. Left ventricle end-diastolic pressure is about 20. There was no gradient across the aortic valve SELECTIVE CORONARY ARTERIOGRAPHY: LEFT MAIN: Long and free of any occlusive disease THE LEFT ANTERIOR DESCENDING CORONARY ARTERY:. This is a moderate caliber vessel giving rise to good-sized diagonal branch. The LAD LAD has about 95% stenosis at the origin of the diagonal. The origin of the diagonal branch is a 95% stenosis. It divides into 2 branches and the second branches along 80-90% stenosis proximally THE LEFT CIRCUMFLEX AND IS CORONARY ARTERY:. This is a nondominant moderate caliber vessel and free of occlusive disease THE RIGHT CORONARY ARTERY:. This is a dominant vessel giving rise to good-sized PDA and PLV branches. The PDA has about 70-80% stenosis at the ostium LEFT VENTRICULOGRAPHY:. This revealed normal-sized cardiac silhouette with good systolic function FINAL IMPRESSION:. Critical lesion involving the LAD diagonal and also the PDA branch of the right cornea artery PLAN:. Films were reviewed with the Dr. Stokes. In view of the location and the nature of the lesions, patient is advised to have bypass surgery. Patient to be seen by cardiac surgeon PROGNOSIS: Fair with successful therapy
--- NOTE | 2018-10-20 12:49 | P.PN ---
Subjective Progress Note Date: 10/20/18 On today's evaluation of 10/20/2018, the patient is doing extremely well. She is free of any chest pain. She underwent a bedside spirometry and her FEV1 is noted of 85% of predicted. She was given a 5 minute walk test and she completed the walk without any major difficulties. She is using incentive spirometer. She has no specific complaints. She is hemodynamically stable. She is going to cardiac bypass surgery in a.m. Objective - Vital Signs Vital signs: Vital Signs Temp 98.2 F 10/20/18 12:00 Pulse 60 10/20/18 12:00 Resp 19 10/20/18 12:00 BP 139/67 10/20/18 12:00 Pulse Ox 94 L 10/20/18 12:00 Intake & Output 10/19/18 10/20/18 10/20/18 18:59 06:59 18:59 Intake Total 181 162 Output Total 850 Balance 181 -688 Weight 81.193 kg 80.9 kg Intake: IV 181 162 Sodium Chloride 0.9% 1, 81 162 000 ml In Empty Bag 1 bag @ 1 ML/KG/HR 81.193 mls/ hr IV .[id number] ONE Rx#: [id number] Output: Urine 850 Other: Voiding Method Bedpan Bedside Commode Bedside Commode # Voids 1 - Exam - Constitutional General appearance: Present: cooperative, no acute distress, obese - Respiratory Details: Lungs sounds essentially clear throughout. Respirations are symmetrical and nonlabored. Oxygen saturation are 92% on room air. Achieving 2001 L on her incentive spirometry. - Cardiovascular Details: Regular rhythm and rate. S1 and S2 present, negative for S3 or gallop. Sys tolic murmur 2/6 present heard best to her right sternal border. No edema present. Sequential compression devices in place to bilateral lower extremities. Bedside telemetry showing normal sinus rhythm heart rate 74. - Gastrointestinal Gastrointestinal Comment(s): Abdomen is soft, nontender and nondistended. Active bowel sounds all 4 abdominal quadrants. No guarding or rigidity. No organomegaly. - Genitourinary Genitourinary Comment(s): Voiding clear yellow urine. - Integumentary Integumentary Comment(s): Skin is warm and dry. No clubbing or cyanosis is present. No rash or abnormal pigmentation present. - Neurologic Neurologic: Present: CNII-XII intact - Musculoskeletal Musculoskeletal: Present: gait normal, strength equal bilaterally - Psychiatric Psychiatric: Present: A&O x's 3, appropriate affect, intact judgment & insight - Labs CBC & Chem 7: 10/20/18 05:38 10/20/18 05:38 Labs: Abnormal Lab Results - Last 24 Hours (Table) 10/19/18 10/19/18 10/20/18 Range/Units 02:20 23:32 05:38 APTT 51.0 H (22.0-30.0) sec Hemoglobin A1c 6.1 H (4.0-6.0) % AST (14-36) U/L ALT (9-52) U/L Crossmatch See Detail 10/20/18 10/20/18 Range/Units 05:38 05:38 APTT 65.4 H (22.0-30.0) sec Hemoglobin A1c (4.0-6.0) % AST 50 H (14-36) U/L ALT 66 H (9-52) U/L Crossmatch Microbiology - Last 24 Hours (Table) 10/19/18 21:00 Urine Culture - Preliminary Urine,Clean Catch 10/19/18 16:28 Nasal Screen MRSA/MSSA - Preliminary Nasal Swab Assessment and Plan Plan: 1 symptomatic multivessel coronary artery disease, awaiting cardiac bypass surgery. This would doubt the next 24-48 hours. The patient is currently in intensive care unit. She is free of any chest pain 2 chest pain secondary to above 3 strong family history for coronary artery disease 4 hypertension Plan Condition is stable. Continue monitoring the patient. Cardiac bypass surgery in the morning. Spirometry was noted. Continue using incentive spirometer.
[2018-10-20] MEDS: HEPARIN SOD,PORK IN 0.45% NACL 25,000 UNIT in 0.45% NACL 1 250ML.BAG IV SCH (19:44)
[2018-10-20] MEDS ORDERED: CHLORHEXIDINE GLUCONATE 15 ML CUP MUCOUS MEM ONE (20:50)
[2018-10-21 04:37] LABS: HCT 43.6 % (34.0-46.0); HGB 14.4 gm/dL (11.4-16.0); MCH 29.6 pg (25.0-35.0); MCHC 33.1 g/dL (31.0-37.0); MCV 89.2 fL (80.0-100.0); Mean Platelet Volume 7.1; Platelet Count 290 k/uL (150-450); RBC 4.88 m/uL (3.80-5.40); RDW 13.8 % (11.5-15.5); WBC 12.8 k/uL (3.8-10.6)
[2018-10-21 04:46] LABS: ALT 56 U/L (9-52); AST 48 U/L (14-36); African American GFR (CKD) >90 (>60 ml/min/1.73 sqM); Albumin 4.1 g/dL (3.5-5.0); Alkaline Phosphatase 102 U/L (38-126); Anion Gap 10 mmol/L; Blood Urea Nitrogen 20 mg/dL (7-17); Calcium 9.3 mg/dL (8.4-10.2); Carbon Dioxide 22 mmol/L (22-30); Chloride 108 mmol/L (98-107); Glucose 99 mg/dL (74-99); Phosphorus 3.7 mg/dL (2.5-4.5); Potassium 4.3 mmol/L (3.5-5.1); Sodium 140 mmol/L (137-145); Total Bilirubin 0.7 mg/dL (0.2-1.3); Total Protein 7.2 g/dL (6.3-8.2)
[2018-10-21 04:48] LABS: Partial Thromboplastin Time 64.3 sec (22.0-30.0); Prothrombin Time 10.9 sec (9.0-12.0)
[2018-10-21] MEDS: METOPROLOL TARTRATE 50 MG TAB PO SCH (04:52)
[2018-10-21] MEDS ORDERED: NOREPINEPHRINE 4 MG in SODIUM CHLORIDE 0.9% 250 ML IV SCH (05:00)
[2018-10-21] MEDS ORDERED: PHENYLEPHRINE 10 MG/ML VIAL IV ONE (05:00)
[2018-10-21] MEDS ORDERED: PROTAMINE SULFATE 10 MG/ML 25 ML VIAL IV ONE ×2 (05:00→08:10)
[2018-10-21] MEDS ORDERED: PAPAVERINE 360 MG in SODIUM CHLORIDE 0.9% 90 ML IV ONE (05:00)
[2018-10-21] MEDS ORDERED: PROPOFOL 1,000 MG in EMPTY BAG 1 BAG IV PRN (05:00)
[2018-10-21] MEDS ORDERED: MANNITOL 25% 12.5 GM/50 ML VIAL IV ONE ×2 (05:00)
[2018-10-21] MEDS ORDERED: CHLORHEXIDINE GLUCONATE 15 ML CUP MUCOUS MEM ONE (05:00)
[2018-10-21] MEDS ORDERED: CALCIUM CHLORIDE 100 MG/ML 10 ML SYRINGE IVP ONE (05:00)
[2018-10-21] MEDS ORDERED: ceFAZolin 2,000 MG in SODIUM CHLORIDE 0.9% 30 ML IVPB ONE (05:00)
[2018-10-21] MEDS ORDERED: TRANEXAMIC ACID 2,000 MG in SODIUM CHLORIDE 0.9% 80 ML IV ONE (05:00)
[2018-10-21] MEDS ORDERED: NITROGLYCERIN-D5W PMX 25 MG/250 ML BTL IV ONE (05:00)
[2018-10-21] MEDS ORDERED: ALBUMIN HUMAN 5% 500 ML in EMPTY BAG 1 BAG IVPB ONE ×6 (05:00)
[2018-10-21] MEDS ORDERED: DEXTROSE 5% IN WATER 1,000 ML with POTASSIUM CHLORIDE 110 MEQ, MAGNESIUM SULFATE 16 MEQ... IV SCH ×5 (05:00)
[2018-10-21] MEDS ORDERED: METOPROLOL TARTRATE 12.5 MG TAB PO ONE (05:00)
[2018-10-21] MEDS ORDERED: HEPARIN SODIUM 1,000 UN/ML (10ML VL) IV ONE (05:00)
[2018-10-21] MEDS ORDERED: PHENYLEPHRINE 40 MG in SODIUM CHLORIDE 0.9% 250 ML IV ONE (05:00)
[2018-10-21] MEDS ORDERED: MAGNESIUM SULFATE SYG 4.06 MEQ/ML SYRINGE IV ONE (05:00)
[2018-10-21] MEDS ORDERED: ceFAZolin 1,000 MG in SODIUM CHLORIDE 0.9% IRRIGATIO 1,000 ML IRRIGATION ONE (05:00)
[2018-10-21] MEDS ORDERED: PROTAMINE SULFATE 250 MG in EMPTY BAG 1 BAG IV ONE (05:00)
[2018-10-21] MEDS ORDERED: SODIUM BICARB 8.4% 50 ML SYR (1 MEQ/ML) IV ONE (05:00)
[2018-10-21] MEDS ORDERED: ALBUMIN HUMAN 25% 50 ML in EMPTY BAG 1 BAG IVPB ONE (05:00)
[2018-10-21] MEDS ORDERED: ceFAZolin 2 GM in SODIUM CHLORIDE 0.9% 30 ML IVPB ONE (05:00)
[2018-10-21] MEDS ORDERED: LACTATED RINGERS 1,000 ML IV SCH (05:00)
[2018-10-21] MEDS ORDERED: ASPIRIN 325 MG TAB PO ONE (05:00)
[2018-10-21] MEDS ORDERED: ATORVASTATIN 10 MG TAB PO ONE (05:00)
[2018-10-21] MEDS ORDERED: DEXTROSE 5% IN WATER 1,000 ML with POTASSIUM CHLORIDE 25 MEQ, SODIUM CHLORIDE 2.5MEQ/ML... IV SCH ×6 (05:00)
[2018-10-21] MEDS ORDERED: HEPARIN SODIUM,PORCINE 5,000 UNIT in SODIUM CHLORIDE 0.9% 500 ML 500 ML IV ONE (05:00)
--- NOTE | 2018-10-21 07:42 | PN ---
PROGRESS NOTE 63-year-old female with a family history of premature coronary artery disease who presented with unstable angina. She underwent cardiac catheterization, was found to have severe triple-vessel coronary disease, severe ostial obstructive disease involving the LAD as well as the right coronary artery. She is scheduled to undergo coronary artery bypass grafting today. She had a brief episode of chest discomfort yesterday. Otherwise, her breathing has been stable. She denies any dizziness or palpitation. She denies any nausea. She continues to be at this time on aspirin once a day, Lipitor 40 mg daily, metoprolol tartrate 50 mg twice a day. PHYSICAL EXAMINATION: Blood pressure 140/70 with a heart in the 60s. LUNGS: Clear. HEART: Regular rate and rhythm. S1, S2. No S3. No rub. ABDOMEN: Soft nontender. EXTREMITIES: No edema. LAB DATA: Lab data revealed BUN and creatinine 20 and 0.7. Potassium 4.3. IMPRESSION: 1. Unstable angina with significant obstructive disease. 2. Hyperlipidemia. 3. Family history of premature coronary artery disease. RECOMMENDATIONS: Patient will proceed with coronary artery bypass grafting today and depending on her progress, further recommendations will be made. MMODL / IJN: [id number] /
[2018-10-21] MEDS ORDERED: ALBUMIN HUMAN 5% (12.5gm) 250 ML BOTTLE IVPB ONE (08:10)
[2018-10-21] MEDS ORDERED: INSULIN REGULAR 100 UNIT/ML VIAL ONE (08:10)
[2018-10-21] MEDS ORDERED: MIDAZOLAM 2 MG/2 ML VIAL ONE (08:10)
[2018-10-21] MEDS ORDERED: HEPARIN SODIUM,PORCINE 10,000 UNIT/ML 1 ML VIAL ONE (08:10)
[2018-10-21] MEDS ORDERED: VECURONIUM 10 MG VIAL IV ONE (08:10)
[2018-10-21] MEDS ORDERED: fentaNYL (PF) 50 MCG/ML 50 ML VIAL ONE (08:10)
[2018-10-21] MEDS ORDERED: LIDOCAINE 2% SYG (PF) 100 MG/5 ML ONE (08:10)
[2018-10-21] MEDS ORDERED: SODIUM CHLORIDE 0.9% 250 ML BAG ONE (08:10)
[2018-10-21] MEDS ORDERED: PROPOFOL 10 MG/ML 20 ML VIAL IV ONE (08:10)
[2018-10-21] MEDS ORDERED: TRANEXAMIC ACID 1,000 MG/10 ML VIAL ONE (08:10)
[2018-10-21] MEDS ORDERED: MAGNESIUM SULFATE 4 MEQ/ML 10ML VIAL ONE (08:10)
[2018-10-21] MEDS ORDERED: fentaNYL (PF) 50 MCG/ML 2 ML AMP ONE (08:10)
[2018-10-21] MEDS ORDERED: NITROGLYCERIN-D5W PMX 50 MG/250 ML BOTTLE IV ONE (08:10)
[2018-10-21] MEDS ORDERED: SODIUM CHLORIDE 0.9% IRRIG 1,000 ML BTL IRRIGATION ONE (08:45)
[2018-10-21] MEDS ORDERED: ELECTROLYTE-R (PH 7.4) 1,000 ML IV.SOLN IV ONE (08:45)
[2018-10-21 08:48] LABS: ABG Base Excess -1.7 mmol/L; ABG Glucose Whole Blood 116 mg/dL (75-99); ABG HCO3 23 mmol/L (21-25); ABG Hematocrit 44 % (34.0-46.0); ABG Ionized Calcium 4.8 mg/dL (4.5-5.3); ABG Lactic Acid Whole Blood 0.7 mmol/L (0.5-1.6); ABG PCO2 39 mmHg (35-45); ABG PH 7.38 (7.35-7.45); ABG PO2 203 mmHg (83-108); ABG Potassium Whole Blood 4.1 mmol/L (3.4-4.5); ABG Sodium Whole Blood 141 mmol/L (135-146); ABG TCO2 24 mmol/L (19-24)
[2018-10-21 10:39] LABS: ABG Base Excess -2.1 mmol/L; ABG Glucose Whole Blood 133 mg/dL (75-99); ABG HCO3 24 mmol/L (21-25); ABG Hematocrit 40 % (34.0-46.0); ABG Ionized Calcium 4.7 mg/dL (4.5-5.3); ABG Lactic Acid Whole Blood 0.8 mmol/L (0.5-1.6); ABG PCO2 45 mmHg (35-45); ABG PH 7.33 (7.35-7.45); ABG PO2 122 mmHg (83-108); ABG Potassium Whole Blood 4.5 mmol/L (3.4-4.5); ABG Sodium Whole Blood 139 mmol/L (135-146); ABG TCO2 25 mmol/L (19-24)
[2018-10-21 11:21] LABS: ABG Base Excess -3.2 mmol/L; ABG Glucose Whole Blood 124 mg/dL (75-99); ABG HCO3 22 mmol/L (21-25); ABG Hematocrit 28 % (34.0-46.0); ABG Ionized Calcium 4.1 mg/dL (4.5-5.3); ABG Lactic Acid Whole Blood 0.8 mmol/L (0.5-1.6); ABG PCO2 41 mmHg (35-45); ABG PH 7.34 (7.35-7.45); ABG Potassium Whole Blood 4.2 mmol/L (3.4-4.5); ABG Sodium Whole Blood 134 mmol/L (135-146); ABG TCO2 24 mmol/L (19-24)
[2018-10-21 11:58] LABS: ABG Base Excess -0.6 mmol/L; ABG Glucose Whole Blood 214 mg/dL (75-99); ABG HCO3 25 mmol/L (21-25); ABG Hematocrit 26 % (34.0-46.0); ABG Ionized Calcium 4.1 mg/dL (4.5-5.3); ABG Lactic Acid Whole Blood 1.3 mmol/L (0.5-1.6); ABG PCO2 43 mmHg (35-45); ABG PH 7.37 (7.35-7.45); ABG PO2 285 mmHg (83-108); ABG Sodium Whole Blood 134 mmol/L (135-146); ABG TCO2 26 mmol/L (19-24)
[2018-10-21 12:22] LABS: ABG Base Excess -1.4 mmol/L; ABG Glucose Whole Blood 213 mg/dL (75-99); ABG HCO3 24 mmol/L (21-25); ABG Hematocrit 27 % (34.0-46.0); ABG Ionized Calcium 4.2 mg/dL (4.5-5.3); ABG Lactic Acid Whole Blood 1.5 mmol/L (0.5-1.6); ABG PCO2 42 mmHg (35-45); ABG PH 7.36 (7.35-7.45); ABG PO2 392 mmHg (83-108); ABG Potassium Whole Blood 6.1 mmol/L (3.4-4.5); ABG Sodium Whole Blood 134 mmol/L (135-146); ABG TCO2 25 mmol/L (19-24)
[2018-10-21 13:00] LABS: ABG Base Excess -1.7 mmol/L; ABG Glucose Whole Blood 191 mg/dL (75-99); ABG HCO3 23 mmol/L (21-25); ABG Hematocrit 26 % (34.0-46.0); ABG Ionized Calcium 4.1 mg/dL (4.5-5.3); ABG PCO2 37 mmHg (35-45); ABG Potassium Whole Blood 4.5 mmol/L (3.4-4.5); ABG Sodium Whole Blood 137 mmol/L (135-146); ABG TCO2 24 mmol/L (19-24)
[2018-10-21 13:38] LABS: ABG PO2 >420 mmHg (83-108)
[2018-10-21 13:40] LABS: ABG Lactic Acid Whole Blood 2.6 mmol/L (0.5-1.6); ABG PO2 >420 mmHg (83-108)
[2018-10-21 14:01] LABS: ABG Base Excess -0.8 mmol/L; ABG Glucose Whole Blood 130 mg/dL (75-99); ABG HCO3 24 mmol/L (21-25); ABG Hematocrit 32 % (34.0-46.0); ABG Ionized Calcium 4.5 mg/dL (4.5-5.3); ABG PCO2 40 mmHg (35-45); ABG PH 7.39 (7.35-7.45); ABG PO2 214 mmHg (83-108); ABG Potassium Whole Blood 4.1 mmol/L (3.4-4.5); ABG Sodium Whole Blood 139 mmol/L (135-146); ABG TCO2 25 mmol/L (19-24)
[2018-10-21 14:16] LABS: ABG Lactic Acid Whole Blood 2.1 mmol/L (0.5-1.6)
[2018-10-21] MEDS ORDERED: ONDANSETRON 4 MG/2 ML VIAL IVP PRN (14:24)
[2018-10-21] MEDS ORDERED: Phosphorus Replacement Protoco 1 EACH MISC MISCELLANE PRN (14:24)
[2018-10-21] MEDS ORDERED: DEXTROSE 5% IN WATER 100 ML with AMIODARONE 150 MG IV PRN (14:24)
[2018-10-21] MEDS ORDERED: Potassium Replacement Protocol 1 EACH MISC MISCELLANE PRN (14:24)
[2018-10-21] MEDS ORDERED: AMIODARONE 360 MG in DEXTROSE 5% IN WATER 200 ML IV PRN ×2 (14:24)
[2018-10-21] MEDS ORDERED: Magnesium Replacement Protocol 1 EACH MISC MISCELLANE PRN (14:24)
[2018-10-21] MEDS ORDERED: BENZOCAINE/MENTHOL LOZENG 1 EACH LOZENGE MUCOUS MEM PRN (14:24)
[2018-10-21] MEDS ORDERED: CALCIUM GLUCONATE 2 GM in SODIUM CHLORIDE 0.9% 100 ML IVPB PRN (14:24)
[2018-10-21] MEDS ORDERED: IPRATROPIUM-ALBUTEROL 3 ML NEB INHALATION PRN (14:24)
[2018-10-21] MEDS ORDERED: AMIODARONE 300 MG in DEXTROSE 5% IN WATER 250 ML IV PRN ×2 (14:24)
[2018-10-21] MEDS: NITROGLYCERIN-D5W PMX 50 MG in DEXTROSE/WATER 1 250ML.BAG IV SCH (15:00)
[2018-10-21] MEDS: LACTATED RINGERS 1,000 ML IV SCH (15:00)
[2018-10-21 15:09] LABS: Glucose,Whole Blood 106 mg/dL (75-99)
[2018-10-21] MEDS: IPRATROPIUM-ALBUTEROL 3 ML NEB INHALATION SCH ×4 (15:18→19:08)
[2018-10-21] MEDS: ALBUMIN HUMAN 5% 250 ML in EMPTY BAG 1 BAG IVPB PRN ×6 (15:20→23:24)
--- NOTE | 2018-10-21 15:30 | XR ---
EXAMINATION TYPE: XR chest 1V portable DATE OF EXAM: 10/21/2018 COMPARISON: 10/18/2018 HISTORY: Postop TECHNIQUE: Single frontal view of the chest is obtained. FINDINGS: The endotracheal tube is 2 cm from the adalberto. Right jugular catheter has tip in the left mid artery. There is pulmonary edema. There is a drain over the left chest. There is a drain over the heart. There is no pneumothorax. Trachea is midline. IMPRESSION: Pulmonary edema consistent with congestive heart failure. Bilateral basilar atelectasis. This appears new compared to old exam.
[2018-10-21 15:31] LABS: Ionized Calcium 5.3 mg/dL (4.5-5.3)
[2018-10-21 15:32] LABS: INR 1.2 (<1.2); Partial Thromboplastin Time 29.5 sec (22.0-30.0); Prothrombin Time 12.7 sec (9.0-12.0)
[2018-10-21 15:38] LABS: ALT 44 U/L (9-52); AST 105 U/L (14-36); African American GFR (CKD) >90 (>60 ml/min/1.73 sqM); Albumin 3.2 g/dL (3.5-5.0); Alkaline Phosphatase 39 U/L (38-126); Anion Gap 7 mmol/L; Blood Urea Nitrogen 17 mg/dL (7-17); Calcium 8.7 mg/dL (8.4-10.2); Carbon Dioxide 26 mmol/L (22-30); Chloride 108 mmol/L (98-107); Glucose 95 mg/dL (74-99); Magnesium 2.7 mg/dL (1.6-2.3); Sodium 141 mmol/L (137-145); Total Bilirubin 0.6 mg/dL (0.2-1.3); Total Protein 5.1 g/dL (6.3-8.2)
[2018-10-21 15:41] LABS: Potassium 4.7 mmol/L (3.5-5.1)
--- NOTE | 2018-10-21 15:43 | P.PN ---
Subjective Progress Note Date: 10/21/18 63-year-old here patient is coming to the intensive care unit postop following three-vessel bypass surgery. The patient underwent [place] to LAD in addition to saphenous vein graft to PDA and diagonal. She comes in on a mechanical ventilator. I saw her in a SIMV mode. I switch her to an assist-control mode at the rate of 18 with a tidal volume of 400 and FiO2 set 100% with a PEEP of 5. The patient had a postop chest x-ray that shows adequate positioning of the tubes. ET tube is in a good location. The patient has mediastinal and pleural chest tube. The patient also has [place] catheter in place. Blood gases still pending for now. She is sedated with propofol at 20 mics. She is producing adequate amount of urine output. No other significant events in her cardiac rhythm is sinus for now. Output from the chest tube is minimal at this point in time. The cardiac output is 6.8 and an index of 3.8. Objective - Vital Signs Vital signs: Vital Signs Temp 98.0 F 10/21/18 04:00 Pulse 65 10/21/18 04:00 Resp 20 10/21/18 04:00 BP 140/72 10/21/18 04:00 Pulse Ox 93 L 10/21/18 04:00 Intake & Output 10/20/18 10/21/18 10/21/18 18:59 06:59 18:59 Intake Total 1440 640 3 Output Total 2100 Balance 1440 640 -2097 Intake: IV 160 3 .9 160 Oral 1440 480 Output: Urine 600 Estimated Blood Loss 1500 Other: Voiding Method Bedside Commode Bedside Commode # Voids 1 1 # Bowel Movements 1 1 - Exam - Constitutional General appearance: Related, comfortable intubated on a mechanical ventilator. Orogastric and orotracheal tube are both in place. Head exam was generally normal. There was no scleral icterus or corneal arcus. Mucous membranes were moist. Neck was supple and without jugular venous distension, thyromegaly, or carotid bruits. Carotids were easily palpable bilaterally. There was no adenopathy. - Respiratory Details: Lungs sounds essentially clear throughout. Rest although diminished in lung bases. The patient has a thoracotomy scar over the anterior chest area. Chest tubes are all in place. - Cardiovascular Details: Regular rhythm and rate. S1 and S2 present, negative for S3 or gallop. Systolic murmur 2/6 present heard best to her right sternal border. No edema present. Sequential compression devices in place to bilateral lower extremities. - Gastrointestinal Gastrointestinal Comment(s): Abdomen is soft, nontender and nondistended. Active bowel sounds all 4 abdominal quadrants. No guarding or rigidity. No organomegaly. - Genitourinary Genitourinary Comment(s): Voiding clear yellow urine. - Integumentary Integumentary Comment(s): Skin is warm and dry. No clubbing or cyanosis is present. No rash or abnormal pigmentation present. - Neurologic Neurologic: Present: CNII-XII intact - Musculoskeletal Musculoskeletal: Present: gait normal, strength equal bilaterally - Psychiatric Psychiatric: Present: A&O x's 3, appropriate affect, intact judgment & insight - Labs CBC & Chem 7: 10/21/18 04:29 10/21/18 04:29 Labs: Abnormal Lab Results - Last 24 Hours (Table) 10/20/18 10/21/18 10/21/18 Range/Units 05:38 04:29 04:29 WBC 12.8 H (3.8-10.6) k/uL PT (9.0-12.0) sec INR (<1.2) APTT 64.3 H (22.0-30.0) sec ABG pH (7.35-7.45) ABG pO2 (83-108) mmHg ABG Total CO2 (19-24) mmol/L ABG O2 Saturation (94-97) % ABG Hematocrit (34.0-46.0) % ABG Sodium (135-146) mmol/L ABG Potassium (3.4-4.5) mmol/L ABG Ionized Calcium (4.5-5.3) mg/dL ABG Glucose (75-99) mg/dL ABG Lactic Acid (0.5-1.6) mmol/L Hemoglobin (11.4-16.0) gm/dL Chloride (98-107) mmol/L BUN (7-17) mg/dL POC Glucose (mg/dL) (75-99) mg/dL AST (14-36) U/L ALT (9-52) U/L Arterial Blood Potassium (3.4-4.5) mmol/L Arterial Blood Glucose (75-99) mg/dL Crossmatch See Detail 10/21/18 10/21/18 10/21/18 Range/Units 04:29 08:50 10:41 WBC (3.8-10.6) k/uL PT (9.0-12.0) sec INR (<1.2) APTT (22.0-30.0) sec ABG pH 7.33 L (7.35-7.45) ABG pO2 203 H 122 H (83-108) mmHg ABG Total CO2 25 H (19-24) mmol/L ABG O2 Saturation 100.0 H 99.0 H (94-97) % ABG Hematocrit (34.0-46.0) % ABG Sodium (135-146) mmol/L ABG Potassium (3.4-4.5) mmol/L ABG Ionized Calcium (4.5-5.3) mg/dL ABG Glucose 116 H 133 H (75-99) mg/dL ABG Lactic Acid (0.5-1.6) mmol/L Hemoglobin (11.4-16.0) gm/dL Chloride 108 H (98-107) mmol/L BUN 20 H (7-17) mg/dL POC Glucose (mg/dL) (75-99) mg/dL AST 48 H (14-36) U/L ALT 56 H (9-52) U/L Arterial Blood Potassium (3.4-4.5) mmol/L Arterial Blood Glucose 116 H 133 H (75-99) mg/dL Crossmatch 10/21/18 10/21/18 10/21/18 Range/Units 11:22 11:59 12:24 WBC (3.8-10.6) k/uL PT (9.0-12.0) sec INR (<1.2) APTT (22.0-30.0) sec ABG pH 7.34 L (7.35-7.45) ABG pO2 >420 H 285 H 392 H (83-108) mmHg ABG Total CO2 26 H 25 H (19-24) mmol/L ABG O2 Saturation 100.0 H 100.0 H 100.0 H (94-97) % ABG Hematocrit 28 L 26 L 27 L (34.0-46.0) % ABG Sodium 134 L 134 L 134 L (135-146) mmol/L ABG Potassium 6.0 H 6.1 H (3.4-4.5) mmol/L ABG Ionized Calcium 4.1 L 4.1 L 4.2 L (4.5-5.3) mg/dL ABG Glucose 124 H 214 H 213 H (75-99) mg/dL ABG Lactic Acid (0.5-1.6) mmol/L Hemoglobin 9.2 L 8.6 L 9.0 L (11.4-16.0) gm/dL Chloride (98-107) mmol/L BUN (7-17) mg/dL POC Glucose (mg/dL) (75-99) mg/dL AST (14-36) U/L ALT (9-52) U/L Arterial Blood Potassium 6.0 H 6.1 H (3.4-4.5) mmol/L Arterial Blood Glucose 124 H 214 H 213 H (75-99) mg/dL Crossmatch 10/21/18 10/21/18 10/21/18 Range/Units 13:01 14:02 15:05 WBC (3.8-10.6) k/uL PT 12.7 H (9.0-12.0) sec INR 1.2 H (<1.2) APTT (22.0-30.0) sec ABG pH (7.35-7.45) ABG pO2 >420 H 214 H (83-108) mmHg ABG Total CO2 25 H (19-24) mmol/L ABG O2 Saturation 100.0 H 100.0 H (94-97) % ABG Hematocrit 26 L 32 L (34.0-46.0) % ABG Sodium (135-146) mmol/L ABG Potassium (3.4-4.5) mmol/L ABG Ionized Calcium 4.1 L (4.5-5.3) mg/dL ABG Glucose 191 H 130 H (75-99) mg/dL ABG Lactic Acid 2.6 H* 2.1 H (0.5-1.6) mmol/L Hemoglobin 8.5 L 10.4 L (11.4-16.0) gm/dL Chloride (98-107) mmol/L BUN (7-17) mg/dL POC Glucose (mg/dL) (75-99) mg/dL AST (14-36) U/L ALT (9-52) U/L Arterial Blood Potassium (3.4-4.5) mmol/L Arterial Blood Glucose 191 H 130 H (75-99) mg/dL Crossmatch 10/21/18 Range/Units 15:07 WBC (3.8-10.6) k/uL PT (9.0-12.0) sec INR (<1.2) APTT (22.0-30.0) sec ABG pH (7.35-7.45) ABG pO2 (83-108) mmHg ABG Total CO2 (19-24) mmol/L ABG O2 Saturation (94-97) % ABG Hematocrit (34.0-46.0) % ABG Sodium (135-146) mmol/L ABG Potassium (3.4-4.5) mmol/L ABG Ionized Calcium (4.5-5.3) mg/dL ABG Glucose (75-99) mg/dL ABG Lactic Acid (0.5-1.6) mmol/L Hemoglobin (11.4-16.0) gm/dL Chloride (98-107) mmol/L BUN (7-17) mg/dL POC Glucose (mg/dL) 106 H (75-99) mg/dL AST (14-36) U/L ALT (9-52) U/L Arterial Blood Potassium (3.4-4.5) mmol/L Arterial Blood Glucose (75-99) mg/dL Crossmatch Microbiology - Last 24 Hours (Table) 10/19/18 21:00 Urine Culture - Final Urine,Clean Catch 10/19/18 16:28 Nasal Screen MRSA/MSSA - Final Nasal Swab Assessment and Plan Plan: 1 symptomatic multivessel coronary artery disease, the patient is postop day 0 following three-vessel bypass surgery. She just arrived to the intensive care unit. She has a adequate cardiac output and index. We encountered some initial hypotension and based on that the night of nitroglycerin drip has been discontinued and the patient is receiving IV albumin. CVP is low and she is volume dependent. She will have a blood gas. The necessity ventilator changes will be done. Hemodynamically stable. Adequate cardiac output. No pressors or inotropes at this point in time. 2 coronary post-bypass surgery and all of the chest tubes are in place. 3 strong family history for coronary artery disease 4 hypertension, history of Plan Condition is stable. Continue ventilator support. Necessity ventilator changes were done pending blood gas. Monitor hemodynamics. Monitor cardiac output. Monitor blood pressure. Stop the nitroglycerin drip for now. Rhythm is sinus. Moderate output from the chest tube. We'll continue to follow. Anesthetic sedation with the next 4-6 hours. Chest x-ray was reviewed.
[2018-10-21 15:50] LABS: ABG Base Excess -2.3 mmol/L; ABG HCO3 24 mmol/L (21-25); ABG Oxygen Saturation 99.8 % (94-97); ABG PCO2 51 mmHg (35-45); ABG PH 7.29 (7.35-7.45); ABG PO2 232 mmHg (83-108); ABG TCO2 26 mmol/L (19-24); Allen Test Performed? Yes
[2018-10-21 15:50] LABS: Basophils # (A) 0.1 k/uL (0-0.2); Basophils % (A) 1 %; Eosinophils # (A) 0.2 k/uL (0-0.7); Eosinophils % (A) 1 %; HCT 29.8 % (34.0-46.0); Lymphocytes # (A) 4.6 k/uL (1.0-4.8); Lymphocytes % (A) 23 %; MCH 29.5 pg (25.0-35.0); MCHC 32.4 g/dL (31.0-37.0); Mean Platelet Volume 7.7; Monocytes # (A) 0.7 k/uL (0-1.0); Monocytes % (A) 4 %; Neutrophils % (A) 71 %; RBC 3.28 m/uL (3.80-5.40); RDW 13.6 % (11.5-15.5); WBC 19.7 k/uL (3.8-10.6)
[2018-10-21 15:53] LABS: HGB 9.7 gm/dL (11.4-16.0)
[2018-10-21 15:54] LABS: Platelet Count 144 k/uL (150-450)
[2018-10-21 16:08] LABS: Glucose,Whole Blood 87 mg/dL (75-99)
[2018-10-21] MEDS ORDERED: MORPHINE SULFATE 2 MG/ML SYRINGE IVP STA (16:11)
[2018-10-21] MEDS: ACETAMINOPHEN IV (For NPO) 1,000 MG in EMPTY BAG 1 BAG IVPB SCH ×2 (16:13→23:59)
[2018-10-21] MEDS ORDERED: DEXMEDETOMIDINE/0.9% NACL(PMX) 400 MCG in EMPTY BAG 1 BAG IV SCH (16:15)
[2018-10-21 17:01] LABS: Glucose,Whole Blood 108 mg/dL (75-99)
[2018-10-21 17:01] LABS: ABG HCO3 23 mmol/L (21-25); ABG Oxygen Saturation 98.1 % (94-97); ABG PCO2 42 mmHg (35-45); ABG PH 7.36 (7.35-7.45); ABG PO2 104 mmHg (83-108); ABG TCO2 25 mmol/L (19-24); Allen Test Performed? Yes
[2018-10-21] MEDS: ceFAZolin IN SWFI 2 GM/20 ML SYRINGE IVP SCH ×2 (17:03→23:40)
[2018-10-21] MEDS: CLEVIDIPINE BUTYRATE 25 MG in EMPTY BAG 1 BAG IV SCH (17:06)
[2018-10-21 17:23] LABS: Basophils % (A) 0 %; Eosinophils % (A) 0 %; HCT 26.3 % (34.0-46.0); HGB 8.8 gm/dL (11.4-16.0); Lymphocytes % (A) 16 %; MCH 30.4 pg (25.0-35.0); MCHC 33.3 g/dL (31.0-37.0); MCV 91.4 fL (80.0-100.0); Mean Platelet Volume 7.1; Monocytes # (A) 0.7 k/uL (0-1.0); Monocytes % (A) 5 %; Neutrophils % (A) 78 %; Platelet Count 128 k/uL (150-450); RBC 2.88 m/uL (3.80-5.40); RDW 12.8 % (11.5-15.5); WBC 12.9 k/uL (3.8-10.6)
[2018-10-21 18:13] LABS: Glucose,Whole Blood 134 mg/dL (75-99)
[2018-10-21] MEDS: INSULIN REGULAR 100 UNIT in SODIUM CHLORIDE 0.9% 100 ML IV SCH (18:25)
[2018-10-21 19:10] LABS: Glucose,Whole Blood 134 mg/dL (75-99)
--- NOTE | 2018-10-21 20:11 | P.PN ---
Progress Note - Text Pt not in the room as she is getting CABG done. Not able to examine her today
[2018-10-21 20:18] LABS: Glucose,Whole Blood 138 mg/dL (75-99)
[2018-10-21 20:34] LABS: Basophils % (A) 0 %; Eosinophils % (A) 0 %; HCT 25.1 % (34.0-46.0); HGB 8.3 gm/dL (11.4-16.0); Lymphocytes # (A) 1.2 k/uL (1.0-4.8); Lymphocytes % (A) 12 %; MCH 29.9 pg (25.0-35.0); MCHC 33.1 g/dL (31.0-37.0); MCV 90.4 fL (80.0-100.0); Monocytes # (A) 0.5 k/uL (0-1.0); Monocytes % (A) 5 %; Neutrophils # (A) 8.8 k/uL (1.3-7.7); Neutrophils % (A) 82 %; Platelet Count 132 k/uL (150-450); RBC 2.78 m/uL (3.80-5.40); RDW 12.8 % (11.5-15.5); WBC 10.7 k/uL (3.8-10.6)
[2018-10-21 21:07] LABS: Glucose,Whole Blood 131 mg/dL (75-99)
[2018-10-21] MEDS: HEPARIN SODIUM,PORCINE 5,000 UNIT/ML 1 ML VIAL SQ SCH (21:37)
[2018-10-21 22:08] LABS: Glucose,Whole Blood 135 mg/dL (75-99)
[2018-10-21] MEDS: MUPIROCIN 2% OINT 22 GM TUBE NASAL SCH (22:10)
[2018-10-21 23:00] LABS: Glucose,Whole Blood 139 mg/dL (75-99)
[2018-10-21 23:42] LABS: HCT 21.4 % (34.0-46.0); HGB 7.4 gm/dL (11.4-16.0); MCH 31.1 pg (25.0-35.0); MCHC 34.5 g/dL (31.0-37.0); MCV 90.1 fL (80.0-100.0); Mean Platelet Volume 7.8; Platelet Count 111 k/uL (150-450); RBC 2.38 m/uL (3.80-5.40); RDW 13.5 % (11.5-15.5); WBC 9.2 k/uL (3.8-10.6)
--- NOTE | 2018-10-21 23:53 | OP ---
OPERATIVE REPORT DATE OF THE SURGERY: 10/21/2018. SURGEON: Dr. Darien Leigh. ELEVATOR TECHNICIAN: Dr. Gabriel David Nurse practitioner, and Avinash WESTBROOK. PREOPERATIVE DIAGNOSES: Double-vessel coronary artery disease, preserved left ventricular function, mild aortic valve stenosis, obesity, untreated hypertension. POSTOPERATIVE DIAGNOSES: Double-vessel coronary artery disease, preserved left ventricular function, mild aortic valve stenosis, obesity, untreated hypertension. PROCEDURE PERFORMED: 1. Triple coronary artery bypass grafting using the left internal mammary artery to the left anterior descending artery, reverse saphenous vein graft from the aorta to the posterior descending artery, reverse saphenous vein graft from the aorta to the medial branch of the 2nd diagonal artery. 2. Endoscopic harvesting of the left greater saphenous vein. 3. Intraoperative transesophageal echocardiogram and epiaortic scanning. 4. Intraoperative graft flow measurements using the HandUp PBC system. INDICATIONS FOR SURGERY: Patient is a 63-year-old lady who presented with recent onset of unstable angina. She underwent cardiac catheterization that showed a complex LAD stenosis involving the takeoff of a large diagonal branch and an ostial posterior descending artery stenosis. The patient was considered a surgical candidate. Preoperative workup included a 2D echo that showed mild aortic valve stenosis. Otherwise everything was within normal limits. The patient SDS risk was discussed with her and her . They understood and agreed to proceed. DESCRIPTION OF THE PROCEDURE: The patient in supine position in the preoperative holding area. Right internal jugular [place]-Ene catheter and right radial arterial line were placed. The patient had normal PA pressure and good cardiac index. Subsequently, she was brought to the operating room where general endotracheal anesthesia was induced uneventfully. Ponce catheter was inserted. The chest, abdomen and both lower extremities were prepped and draped using ChloraPrep. Ioban was used to cover the skin. Patient received 2 g of cefazolin intravenously. Her LATEX ALLERGY was taken account and all consumer ricketts were latex free. Transesophageal echocardiogram confirmed the preoperative finding of mild aortic valve stenosis and moderate left ventricular hypertrophy and preserved systolic function. Midline sternotomy was performed and no bone wax was used. The bone was mildly osteoporotic. The left hemisternum was elevated and left internal mammary artery was harvested in a somewhat skeletonized fashion. The left pleura was intentionally opened in this process and was drained with a 19-Grenadian Paul drain. The right pleura had also a breach in it and was drained with another 19-Grenadian Paul drain. In the same setting, the left greater saphenous vein was harvested endoscopically from groin to above ankle level. The leg incision was closed over a drain. The vein was prepared and we seemed to have two good segments, 1 from the thigh, one from the lower leg to be used as the part just below and above the knee was non usable. Standard reactor was used and mediastinal fat was transected between 2 ties. Epiaortic scanning revealed no protruding atheroma in the ascending aorta and some mild intimal thickening. Pericardium was opened in an inverted T-fashion and a pericardial cradle was created. The aorta was soft, normal size and the heart also was normal size. After systemic heparinization, after placement of respective pledgeted pursestring, aortic cannulation with a 21-Grenadian soft flow cannula, venous cannulation via the right atrial appendage was performed. Antegrade as well as retrograde cardioplegia graft catheters were placed. The mammary artery was double clipped distally and transected, had an excellent pulsatile flow in it, however, was relatively small, around 1.5 mm in diameter and thin- walled. The vein was prepared and appeared to be of good quality as far as the segments we used and were around 4 mm in diameter. Cardiopulmonary bypass was initiated and patient temperature was allowed to drift down to 34 degrees Celsius. We looked at the target and appeared at the proximal posterior descending artery, the left anterior descending artery in its distal aspect as it emerged from the deep intramyocardial course and the medial branch of the 2nd diagonal artery would be the site for bypass. The lateral branch by the time it was identified anteriorly was very small. Her targets were relatively small. However, proportional to her height as again there were at maximum 1.25 mm in diameter. Aorta was clamped and during aortic clamping, myocardial protection was achieved with initial dose of antegrade blood cardioplegia followed by dose of retrograde cold blood cardioplegia with adequate arrest at 150 mL. Rest of the cardioplegia was given retrograde every 15 minutes. The last dose was a warm blood dose. The 1st distal anastomosis was between a good segment of reverse saphenous vein graft and 1.5 mm proximal posterior descending artery, which was thin-walled using Prolene 7- 0 in continuous fashion. Heel and toe were probed for completion. The 2nd distal anastomosis was between another segment of reverse saphenous vein graft and the medial aspect of the diagonal artery which was opened was around 1.2 mm in diameter and thin- walled using Prolene 7-0 in continuous fashion. The 3rd distal anastomosis was between the left internal mammary artery, which again was thin-walled and relatively small around 1.5 mm in diameter and the 1.25 mm in diameter. The left anterior descending artery in its mid to distal aspect using Prolene 7-0 in continuous fashion. I placed a 1 mm shunt in this anastomosis to better define the edges and the shunt was removed before completing the anastomosis, which was hemostatic. The mammary pedicle was affixed to the epicardium with Prolene 6-0 sutures. To mention that the potential plan of sequentially the left internal mammary artery to the diagonal artery was judged not to be ideal in view of: The position of the diagonal artery and the respective small size of the conduits and the targets. Satisfied with the distal anastomosis, rewarming was started as we punched out 2 buttons out of the proximal aorta and performed the 2 proximal anastomosis of the 2 vein grafts using Prolene 6-0 in a continuous fashion. The patient was given lidocaine and magnesium and de-airing maneuvers were done before unclamping the aorta. The patient required 1 DCC to regain his sinus rhythm. Two monopolar atrial pacing wires were affixed to the respective pursestrings on the right atrium and 1 bipolar ventricular pacing wire was driven via the inferior aspect of the right ventricle just beyond the acute margin. After a period of reperfusion, we were able to wean off cardioplegia bypass without the need of any inotropic or vasopressor support. KHADIJAH showed good LV function. Cardiac index was 2.4. With that we proceeded at measuring the graft flow. The flow into the vein graft to the posterior descending artery was 64 mL/minute, pulsatility index of 1.2, diastolic filling of 73%, showing an excellent graft. The flow into the vein graft going to the diagonal artery was 88 mL/minute, pulsatility index of 1.9, diastolic filling of 82% also showing an excellent functioning graft. The flow into the left internal mammary artery to the left anterior descending artery was 48 mL/minute, pulsatility index of 1.7, diastolic filling of 76% showing an excellent graft. With that, test was then full dose protamine was given. Decannulation followed. The venous cannulation site required reinforcement with a running 4-0 Prolene. One nineteen-Grenadian Paul drain was placed substernally. A groove was made in the left pleuropericardial fat to accommodate the mammary artery medial to the lung and away from the posterior sternal table. Pericardial fat was loosely approximated over the right ventricle and the aorta and the graft. After ensuring adequate hemostasis and hemodynamic and after correct sponge, instrument, and needle count, the sternum was closed using 5 enljrr-tz-thorb pineal cable after interposing fibular between the sternal edges. Thorough irrigation of cefazolin followed. The rest of the closure proceeded in layers. The patient did not receive any blood bank product but received 275 mL of Cell Saver blood. She was transferred to the ICU in stable condition with a mean artery pressure of 77, PA pressure of 225/70, normal sinus rhythm at 92 with a cardiac index of 2.2 on nitroglycerin. CRISTOBAL / BA: [id number] /
[2018-10-22 00:11] LABS: Glucose,Whole Blood 146 mg/dL (75-99)
[2018-10-22] MEDS: ALBUMIN HUMAN 5% 250 ML in EMPTY BAG 1 BAG IVPB PRN ×4 (00:25→15:46)
[2018-10-22 01:03] LABS: Glucose,Whole Blood 142 mg/dL (75-99)
[2018-10-22 01:16] LABS: ABG HCO3 24 mmol/L (21-25); ABG PCO2 41 mmHg (35-45); ABG PH 7.38 (7.35-7.45); ABG PO2 91 mmHg (83-108); Allen Test Performed? no
[2018-10-22 01:17] LABS: ABG Base Excess -0.8 mmol/L
[2018-10-22] MEDS ORDERED: HYDROcodone/APAP 5-325MG 1 EACH TAB PO PRN (01:38)
[2018-10-22 01:59] LABS: Glucose,Whole Blood 143 mg/dL (75-99)
[2018-10-22 02:46] LABS: Magnesium 2.1 mg/dL (1.6-2.3); Potassium 4.1 mmol/L (3.5-5.1)
[2018-10-22 03:12] LABS: Glucose,Whole Blood 135 mg/dL (75-99)
[2018-10-22] MEDS: CLEVIDIPINE BUTYRATE 25 MG in EMPTY BAG 1 BAG IV SCH (03:18)
[2018-10-22 04:07] LABS: Glucose,Whole Blood 138 mg/dL (75-99)
[2018-10-22 05:10] LABS: Glucose,Whole Blood 128 mg/dL (75-99)
[2018-10-22] MEDS: NITROGLYCERIN-D5W PMX 50 MG in DEXTROSE/WATER 1 250ML.BAG IV SCH (05:14)
[2018-10-22 06:03] LABS: Glucose,Whole Blood 129 mg/dL (75-99)
[2018-10-22 06:17] LABS: Basophils % (A) 0 %; Eosinophils % (A) 0 %; HCT 24.1 % (34.0-46.0); HGB 7.7 gm/dL (11.4-16.0); Lymphocytes # (A) 2.3 k/uL (1.0-4.8); Lymphocytes % (A) 23 %; MCH 29.4 pg (25.0-35.0); MCHC 32.1 g/dL (31.0-37.0); MCV 91.5 fL (80.0-100.0); Mean Platelet Volume 7.7; Monocytes # (A) 0.6 k/uL (0-1.0); Monocytes % (A) 6 %; Neutrophils # (A) 6.9 k/uL (1.3-7.7); Neutrophils % (A) 69 %; Platelet Count 115 k/uL (150-450); RBC 2.63 m/uL (3.80-5.40)
[2018-10-22 06:38] LABS: ALT 33 U/L (9-52); AST 88 U/L (14-36); African American GFR (CKD) >90 (>60 ml/min/1.73 sqM); Albumin 3.6 g/dL (3.5-5.0); Alkaline Phosphatase 29 U/L (38-126); Anion Gap 9 mmol/L; Blood Urea Nitrogen 19 mg/dL (7-17); Calcium 8.5 mg/dL (8.4-10.2); Carbon Dioxide 25 mmol/L (22-30); Chloride 107 mmol/L (98-107); Glucose 120 mg/dL (74-99); Magnesium 2.1 mg/dL (1.6-2.3); Potassium 4.1 mmol/L (3.5-5.1); Sodium 141 mmol/L (137-145); Total Bilirubin 0.7 mg/dL (0.2-1.3); Total Protein 5.2 g/dL (6.3-8.2)
[2018-10-22 06:53] LABS: Glucose,Whole Blood 106 mg/dL (75-99)
[2018-10-22] MEDS: IPRATROPIUM-ALBUTEROL 3 ML NEB INHALATION SCH ×4 (07:16→21:42)
--- NOTE | 2018-10-22 08:34 | P.PN ---
Subjective Progress Note Date: 10/22/18 Principal diagnosis: Severe double-vessel coronary artery disease, preserved left ventricular function, mild aortic valve stenosis, history of untreated hypertension, obesity, mildly elevated liver transaminase and family history of premature coronary artery disease with her brother having a myocardial infarction at age 43. POD #1 urgent triple-vessel coronary artery bypass grafting using the left internal mammary artery to the left anterior descending coronary artery, a rev erse greater saphenous vein graft from the aorta to the posterior descending coronary artery, a reverse greater saphenous vein graft from the aorta to the medial branch of the second diagonal coronary artery. Endoscopic harvesting of the left greater saphenous vein, intraoperative transesophageal echocardiogram, epi-aortic scanning and graft flow measurements using the [employer] system. Postoperative acute blood loss anemia, an expected outcome due to hemodilution and cardiopulmonary bypass. Patient is laying in bed in the intensive care unit. She is in no acute distress. She is complaining of surgical type pain to her right pleural chest tube insertion site, rating her pain 6 out of 10 on the pain scale. Denies any complaints of shortness of breath. Oxygen saturation are 98% on 4 L nasal cannula. Poor effort on her incentive spirometry and is only achieving 250 mL. She remains hemodynamically stable and is on no inotropic or pressor support. Current cardiac output 5.8, cardiac index 3.1, PA pressures 26/10, CVP 10 mmHg. Mediastinal, right and left pleural chest tubes remain in place to low continuous wall suction -20 cm H2O. Draining thin serosanguineous drainage. No air leak is present. Objective - Vital Signs Vital signs: Vital Signs Temp 37.4 F L 10/22/18 04:00 Pulse 102 H 10/22/18 07:32 Resp 18 10/22/18 07:00 BP 102/65 10/22/18 07:00 Pulse Ox 93 L 10/22/18 07:19 Intake & Output 10/21/18 10/22/18 10/22/18 18:59 06:59 18:59 Intake Total 1715.794 0233.659 7.5 Output Total 2855 1287 20 Balance -1491.372 315.659 -12.5 Weight 85.3 kg Intake: IV 43.875 183.0 0.9 for CO/CI 60 0.9% NS Pressure Bag 36 117 Nitroglycerin-D5w Pmx 50 4.875 6.0 mg In Dextrose/Water 1 250ml.bag @ 5 MCG/MIN 1.5 mls/hr IV .Q24H ERIC Rx#: [id number] Intake, IV Titration 7886.175 1289.659 7.5 Amount ACETAMINOPHEN IV (For NPO 100 ) 1,000 mg In Empty Bag 1 bag @ 400 mls/hr IVPB Q6HR ERIC Rx#:[id number] Albumin Human 5% 250 ml 1000 750 In Empty Bag 1 bag @ 250 mls/hr IVPB Q1HR PRN Rx#: [id number] Dexmedetomidine/0.9% NaCl 9.843 0.809 (Pmx) 400 mcg In Empty Bag 1 bag @ Titrate IV . Q0M ERIC Rx#:[id number] Insulin Regular 100 unit 12.125 7.5 In Sodium Chloride 0.9% 100 ml @ Titrate IV .Q0M ERIC Rx#:[id number] Lactated Ringers 1,000 ml 200 650 @ 50 mls/hr IV .Q20H ERIC Rx#:[id number] Nitroglycerin-D5w Pmx 50 2.225 6.725 mg In Dextrose/Water 1 250ml.bag @ 5 MCG/MIN 1.5 mls/hr IV .Q24H ERIC Rx#: [id number] Propofol 1,000 mg In 7.685 Empty Bag 1 bag @ Titrate IV .Q0M PRN Rx#: [id number] Output: Chest Tube Drainage 375 445 Chest Tube Left 122 150 Chest Tube Mediastinal 180 180 Chest Tube Right 73 115 Drainage 50 20 20 Left Lower 50 Left Upper Medial Calf 20 20 Urine 930 822 Estimated Blood Loss 1500 Other: Voiding Method Indwelling Catheter Indwelling Catheter ABP, PAP, CO, CI - Last Documented Arterial Blood Pressure 91/51 Pulmonary Artery Pressure 22/11 Cardiac Output 5.8 Cardiac Index 3.1 - Constitutional General appearance: Present: cooperative, no acute distress, obese - Respiratory Details: Lung sounds diminished bilateral bases. Respirations are symmetrical and nonlabored. Oxygen saturation are 98% on 4 L nasal cannula. Achieving 250 mL on her incentive spirometry. Mediastinal, left and right pleural chest tubes remain in place to low continuous wall suction -20 cm H2O. No air leak is pr esent. Draining thin serosanguineous drainage. Mediastinal chest tube with 350 mL output since surgery, 150 mL output in the last 8 hours, left pleural chest tube 400 mL since surgery, 120 mL in the last 8 hours, right pleural chest tube 210 mL output since surgery, 100 mL in the last 8 hours. - Cardiovascular Details: Regular rhythm and rate. S1 and S2 present, negative for S3, or gallop. Systolic murmur present 2/6 heard best to the right sternal border. Sternum is stable. Heart hugger is in place and she is demonstrating appropriate use. Right IJ Cordis with Woodhull-Ene catheter in place. Left radial arterial line in place and functioning. No edema present. Knee-high FEI hose and sequential compression devices in place to bilateral lower extremities. - Gastrointestinal Gastrointestinal Comment(s): Abdomen is soft, nontender and nondistended. Obese. Hypoactive bowel sounds present in all 4 abdominal quadrants. No guarding or rigidity. No organomegaly. Tolerating oral intake. - Genitourinary Genitourinary Comment(s): Ponce catheter morning for accurate I&O. Draining clear yellow urine. - Integumentary Integumentary Comment(s): Skin is warm and dry. No clubbing or cyanosis is present. No rash or abnormal pigmentation is present. Midline sternal incision is clean, dry and approximated. No drainage or redness is present. Gauze dressing is clean, dry and place. Left lower extremity EVH sites clean, dry and approximated. No drainage or redness is present. - Neurologic Neurologic: Present: CNII-XII intact - Musculoskeletal Musculoskeletal: Present: gait normal, generalized weakness, strength equal bilaterally - Psychiatric Psychiatric: Present: A&O x's 3, appropriate affect, intact judgment & insight - Allied health notes Allied health notes reviewed: nursing - Labs CBC & Chem 7: 10/22/18 06:00 10/22/18 06:00 Labs: Abnormal Lab Results - Last 24 Hours (Table) 10/20/18 10/21/18 10/21/18 Range/Units 05:38 08:50 10:41 WBC (3.8-10.6) k/uL RBC (3.80-5.40) m/uL Hgb (11.4-16.0) gm/dL Hct (34.0-46.0) % Plt Count (150-450) k/uL Neutrophils # (1.3-7.7) k/uL PT (9.0-12.0) sec INR (<1.2) ABG pH 7.33 L (7.35-7.45) ABG pCO2 (35-45) mmHg ABG pO2 203 H 122 H (83-108) mmHg ABG Total CO2 25 H (19-24) mmol/L ABG O2 Saturation 100.0 H 99.0 H (94-97) % ABG Hematocrit (34.0-46.0) % ABG Sodium (135-146) mmol/L ABG Potassium (3.4-4.5) mmol/L ABG Ionized Calcium (4.5-5.3) mg/dL ABG Glucose 116 H 133 H (75-99) mg/dL ABG Lactic Acid (0.5-1.6) mmol/L Hemoglobin (11.4-16.0) gm/dL Chloride (98-107) mmol/L BUN (7-17) mg/dL Glucose (74-99) mg/dL POC Glucose (mg/dL) (75-99) mg/dL Magnesium (1.6-2.3) mg/dL AST (14-36) U/L Alkaline Phosphatase (38-126) U/L Total Protein (6.3-8.2) g/dL Albumin (3.5-5.0) g/dL Arterial Blood Potassium (3.4-4.5) mmol/L Arterial Blood Glucose 116 H 133 H (75-99) mg/dL Crossmatch See Detail 10/21/18 10/21/18 10/21/18 Range/Units 11:22 11:59 12:24 WBC (3.8-10.6) k/uL RBC (3.80-5.40) m/uL Hgb (11.4-16.0) gm/dL Hct (34.0-46.0) % Plt Count (150-450) k/uL Neutrophils # (1.3-7.7) k/uL PT (9.0-12.0) sec INR (<1.2) ABG pH 7.34 L (7.35-7.45) ABG pCO2 (35-45) mmHg ABG pO2 >420 H 285 H 392 H (83-108) mmHg ABG Total CO2 26 H 25 H (19-24) mmol/L ABG O2 Saturation 100.0 H 100.0 H 100.0 H (94-97) % ABG Hematocrit 28 L 26 L 27 L (34.0-46.0) % ABG Sodium 134 L 134 L 134 L (135-146) mmol/L ABG Potassium 6.0 H 6.1 H (3.4-4.5) mmol/L ABG Ionized Calcium 4.1 L 4.1 L 4.2 L (4.5-5.3) mg/dL ABG Glucose 124 H 214 H 213 H (75-99) mg/dL ABG Lactic Acid (0.5-1.6) mmol/L Hemoglobin 9.2 L 8.6 L 9.0 L (11.4-16.0) gm/dL Chloride (98-107) mmol/L BUN (7-17) mg/dL Glucose (74-99) mg/dL POC Glucose (mg/dL) (75-99) mg/dL Magnesium (1.6-2.3) mg/dL AST (14-36) U/L Alkaline Phosphatase (38-126) U/L Total Protein (6.3-8.2) g/dL Albumin (3.5-5.0) g/dL Arterial Blood Potassium 6.0 H 6.1 H (3.4-4.5) mmol/L Arterial Blood Glucose 124 H 214 H 213 H (75-99) mg/dL Crossmatch 10/21/18 10/21/18 10/21/18 Range/Units 13:01 14:02 15:05 WBC 19.7 H (3.8-10.6) k/uL RBC 3.28 L (3.80-5.40) m/uL Hgb 9.7 L D (11.4-16.0) gm/dL Hct 29.8 L (34.0-46.0) % Plt Count 144 L D (150-450) k/uL Neutrophils # 14.0 H (1.3-7.7) k/uL PT (9.0-12.0) sec INR (<1.2) ABG pH (7.35-7.45) ABG pCO2 (35-45) mmHg ABG pO2 >420 H 214 H (83-108) mmHg ABG Total CO2 25 H (19-24) mmol/L ABG O2 Saturation 100.0 H 100.0 H (94-97) % ABG Hematocrit 26 L 32 L (34.0-46.0) % ABG Sodium (135-146) mmol/L ABG Potassium (3.4-4.5) mmol/L ABG Ionized Calcium 4.1 L (4.5-5.3) mg/dL ABG Glucose 191 H 130 H (75-99) mg/dL ABG Lactic Acid 2.6 H* 2.1 H (0.5-1.6) mmol/L Hemoglobin 8.5 L 10.4 L (11.4-16.0) gm/dL Chloride (98-107) mmol/L BUN (7-17) mg/dL Glucose (74-99) mg/dL POC Glucose (mg/dL) (75-99) mg/dL Magnesium (1.6-2.3) mg/dL AST (14-36) U/L Alkaline Phosphatase (38-126) U/L Total Protein (6.3-8.2) g/dL Albumin (3.5-5.0) g/dL Arterial Blood Potassium (3.4-4.5) mmol/L Arterial Blood Glucose 191 H 130 H (75-99) mg/dL Crossmatch 10/21/18 10/21/18 10/21/18 Range/Units 15:05 15:05 15:07 WBC (3.8-10.6) k/uL RBC (3.80-5.40) m/uL Hgb (11.4-16.0) gm/dL Hct (34.0-46.0) % Plt Count (150-450) k/uL Neutrophils # (1.3-7.7) k/uL PT 12.7 H (9.0-12.0) sec INR 1.2 H (<1.2) ABG pH (7.35-7.45) ABG pCO2 (35-45) mmHg ABG pO2 (83-108) mmHg ABG Total CO2 (19-24) mmol/L ABG O2 Saturation (94-97) % ABG Hematocrit (34.0-46.0) % ABG Sodium (135-146) mmol/L ABG Potassium (3.4-4.5) mmol/L ABG Ionized Calcium (4.5-5.3) mg/dL ABG Glucose (75-99) mg/dL ABG Lactic Acid (0.5-1.6) mmol/L Hemoglobin (11.4-16.0) gm/dL Chloride 108 H (98-107) mmol/L BUN (7-17) mg/dL Glucose (74-99) mg/dL POC Glucose (mg/dL) 106 H (75-99) mg/dL Magnesium 2.7 H (1.6-2.3) mg/dL AST 105 H (14-36) U/L Alkaline Phosphatase (38-126) U/L Total Protein 5.1 L (6.3-8.2) g/dL Albumin 3.2 L (3.5-5.0) g/dL Arterial Blood Potassium (3.4-4.5) mmol/L Arterial Blood Glucose (75-99) mg/dL Crossmatch 10/21/18 10/21/18 10/21/18 Range/Units 15:48 16:58 17:00 WBC (3.8-10.6) k/uL RBC (3.80-5.40) m/uL Hgb (11.4-16.0) gm/dL Hct (34.0-46.0) % Plt Count (150-450) k/uL Neutrophils # (1.3-7.7) k/uL PT (9.0-12.0) sec INR (<1.2) ABG pH 7.29 L (7.35-7.45) ABG pCO2 51 H (35-45) mmHg ABG pO2 232 H (83-108) mmHg ABG Total CO2 26 H 25 H (19-24) mmol/L ABG O2 Saturation 99.8 H 98.1 H (94-97) % ABG Hematocrit (34.0-46.0) % ABG Sodium (135-146) mmol/L ABG Potassium (3.4-4.5) mmol/L ABG Ionized Calcium (4.5-5.3) mg/dL ABG Glucose (75-99) mg/dL ABG Lactic Acid (0.5-1.6) mmol/L Hemoglobin (11.4-16.0) gm/dL Chloride (98-107) mmol/L BUN (7-17) mg/dL Glucose (74-99) mg/dL POC Glucose (mg/dL) 108 H (75-99) mg/dL Magnesium (1.6-2.3) mg/dL AST (14-36) U/L Alkaline Phosphatase (38-126) U/L Total Protein (6.3-8.2) g/dL Albumin (3.5-5.0) g/dL Arterial Blood Potassium (3.4-4.5) mmol/L Arterial Blood Glucose (75-99) mg/dL Crossmatch 10/21/18 10/21/18 10/21/18 Range/Units 17:09 18:10 19:08 WBC 12.9 H (3.8-10.6) k/uL RBC 2.88 L (3.80-5.40) m/uL Hgb 8.8 L (11.4-16.0) gm/dL Hct 26.3 L (34.0-46.0) % Plt Count 128 L (150-450) k/uL Neutrophils # 10.0 H (1.3-7.7) k/uL PT (9.0-12.0) sec INR (<1.2) ABG pH (7.35-7.45) ABG pCO2 (35-45) mmHg ABG pO2 (83-108) mmHg ABG Total CO2 (19-24) mmol/L ABG O2 Saturation (94-97) % ABG Hematocrit (34.0-46.0) % ABG Sodium (135-146) mmol/L ABG Potassium (3.4-4.5) mmol/L ABG Ionized Calcium (4.5-5.3) mg/dL ABG Glucose (75-99) mg/dL ABG Lactic Acid (0.5-1.6) mmol/L Hemoglobin (11.4-16.0) gm/dL Chloride (98-107) mmol/L BUN (7-17) mg/dL Glucose (74-99) mg/dL POC Glucose (mg/dL) 134 H 134 H (75-99) mg/dL Magnesium (1.6-2.3) mg/dL AST (14-36) U/L Alkaline Phosphatase (38-126) U/L Total Protein (6.3-8.2) g/dL Albumin (3.5-5.0) g/dL Arterial Blood Potassium (3.4-4.5) mmol/L Arterial Blood Glucose (75-99) mg/dL Crossmatch 10/21/18 10/21/18 10/21/18 Range/Units 20:16 20:25 21:06 WBC 10.7 H (3.8-10.6) k/uL RBC 2.78 L (3.80-5.40) m/uL Hgb 8.3 L (11.4-16.0) gm/dL Hct 25.1 L (34.0-46.0) % Plt Count 132 L (150-450) k/uL Neutrophils # 8.8 H (1.3-7.7) k/uL PT (9.0-12.0) sec INR (<1.2) ABG pH (7.35-7.45) ABG pCO2 (35-45) mmHg ABG pO2 (83-108) mmHg ABG Total CO2 (19-24) mmol/L ABG O2 Saturation (94-97) % ABG Hematocrit (34.0-46.0) % ABG Sodium (135-146) mmol/L ABG Potassium (3.4-4.5) mmol/L ABG Ionized Calcium (4.5-5.3) mg/dL ABG Glucose (75-99) mg/dL ABG Lactic Acid (0.5-1.6) mmol/L Hemoglobin (11.4-16.0) gm/dL Chloride (98-107) mmol/L BUN (7-17) mg/dL Glucose (74-99) mg/dL POC Glucose (mg/dL) 138 H 131 H (75-99) mg/dL Magnesium (1.6-2.3) mg/dL AST (14-36) U/L Alkaline Phosphatase (38-126) U/L Total Protein (6.3-8.2) g/dL Albumin (3.5-5.0) g/dL Arterial Blood Potassium (3.4-4.5) mmol/L Arterial Blood Glucose (75-99) mg/dL Crossmatch 10/21/18 10/21/18 10/21/18 Range/Units 22:06 22:36 22:50 WBC (3.8-10.6) k/uL RBC 2.38 L (3.80-5.40) m/uL Hgb 7.4 L (11.4-16.0) gm/dL Hct 21.4 L (34.0-46.0) % Plt Count 111 L (150-450) k/uL Neutrophils # (1.3-7.7) k/uL PT (9.0-12.0) sec INR (<1.2) ABG pH (7.35-7.45) ABG pCO2 (35-45) mmHg ABG pO2 (83-108) mmHg ABG Total CO2 (19-24) mmol/L ABG O2 Saturation 98.0 H (94-97) % ABG Hematocrit (34.0-46.0) % ABG Sodium (135-146) mmol/L ABG Potassium (3.4-4.5) mmol/L ABG Ionized Calcium (4.5-5.3) mg/dL ABG Glucose (75-99) mg/dL ABG Lactic Acid (0.5-1.6) mmol/L Hemoglobin (11.4-16.0) gm/dL Chloride (98-107) mmol/L BUN (7-17) mg/dL Glucose (74-99) mg/dL POC Glucose (mg/dL) 135 H (75-99) mg/dL Magnesium (1.6-2.3) mg/dL AST (14-36) U/L Alkaline Phosphatase (38-126) U/L Total Protein (6.3-8.2) g/dL Albumin (3.5-5.0) g/dL Arterial Blood Potassium (3.4-4.5) mmol/L Arterial Blood Glucose (75-99) mg/dL Crossmatch 10/21/18 10/22/18 10/22/18 Range/Units 22:59 00:09 01:01 WBC (3.8-10.6) k/uL RBC (3.80-5.40) m/uL Hgb (11.4-16.0) gm/dL Hct (34.0-46.0) % Plt Count (150-450) k/uL Neutrophils # (1.3-7.7) k/uL PT (9.0-12.0) sec INR (<1.2) ABG pH (7.35-7.45) ABG pCO2 (35-45) mmHg ABG pO2 (83-108) mmHg ABG Total CO2 (19-24) mmol/L ABG O2 Saturation (94-97) % ABG Hematocrit (34.0-46.0) % ABG Sodium (135-146) mmol/L ABG Potassium (3.4-4.5) mmol/L ABG Ionized Calcium (4.5-5.3) mg/dL ABG Glucose (75-99) mg/dL ABG Lactic Acid (0.5-1.6) mmol/L Hemoglobin (11.4-16.0) gm/dL Chloride (98-107) mmol/L BUN (7-17) mg/dL Glucose (74-99) mg/dL POC Glucose (mg/dL) 139 H 146 H 142 H (75-99) mg/dL Magnesium (1.6-2.3) mg/dL AST (14-36) U/L Alkaline Phosphatase (38-126) U/L Total Protein (6.3-8.2) g/dL Albumin (3.5-5.0) g/dL Arterial Blood Potassium (3.4-4.5) mmol/L Arterial Blood Glucose (75-99) mg/dL Crossmatch 10/22/18 10/22/18 10/22/18 Range/Units 01:56 03:10 04:04 WBC (3.8-10.6) k/uL RBC (3.80-5.40) m/uL Hgb (11.4-16.0) gm/dL Hct (34.0-46.0) % Plt Count (150-450) k/uL Neutrophils # (1.3-7.7) k/uL PT (9.0-12.0) sec INR (<1.2) ABG pH (7.35-7.45) ABG pCO2 (35-45) mmHg ABG pO2 (83-108) mmHg ABG Total CO2 (19-24) mmol/L ABG O2 Saturation (94-97) % ABG Hematocrit (34.0-46.0) % ABG Sodium (135-146) mmol/L ABG Potassium (3.4-4.5) mmol/L ABG Ionized Calcium (4.5-5.3) mg/dL ABG Glucose (75-99) mg/dL ABG Lactic Acid (0.5-1.6) mmol/L Hemoglobin (11.4-16.0) gm/dL Chloride (98-107) mmol/L BUN (7-17) mg/dL Glucose (74-99) mg/dL POC Glucose (mg/dL) 143 H 135 H 138 H (75-99) mg/dL Magnesium (1.6-2.3) mg/dL AST (14-36) U/L Alkaline Phosphatase (38-126) U/L Total Protein (6.3-8.2) g/dL Albumin (3.5-5.0) g/dL Arterial Blood Potassium (3.4-4.5) mmol/L Arterial Blood Glucose (75-99) mg/dL Crossmatch 10/22/18 10/22/18 10/22/18 Range/Units 05:09 06:00 06:00 WBC (3.8-10.6) k/uL RBC 2.63 L (3.80-5.40) m/uL Hgb 7.7 L (11.4-16.0) gm/dL Hct 24.1 L (34.0-46.0) % Plt Count 115 L (150-450) k/uL Neutrophils # (1.3-7.7) k/uL PT (9.0-12.0) sec INR (<1.2) ABG pH (7.35-7.45) ABG pCO2 (35-45) mmHg ABG pO2 (83-108) mmHg ABG Total CO2 (19-24) mmol/L ABG O2 Saturation (94-97) % ABG Hematocrit (34.0-46.0) % ABG Sodium (135-146) mmol/L ABG Potassium (3.4-4.5) mmol/L ABG Ionized Calcium (4.5-5.3) mg/dL ABG Glucose (75-99) mg/dL ABG Lactic Acid (0.5-1.6) mmol/L Hemoglobin (11.4-16.0) gm/dL Chloride (98-107) mmol/L BUN 19 H (7-17) mg/dL Glucose 120 H (74-99) mg/dL POC Glucose (mg/dL) 128 H (75-99) mg/dL Magnesium (1.6-2.3) mg/dL AST 88 H (14-36) U/L Alkaline Phosphatase 29 L (38-126) U/L Total Protein 5.2 L (6.3-8.2) g/dL Albumin (3.5-5.0) g/dL Arterial Blood Potassium (3.4-4.5) mmol/L Arterial Blood Glucose (75-99) mg/dL Crossmatch 10/22/18 10/22/18 Range/Units 06:01 06:51 WBC (3.8-10.6) k/uL RBC (3.80-5.40) m/uL Hgb (11.4-16.0) gm/dL Hct (34.0-46.0) % Plt Count (150-450) k/uL Neutrophils # (1.3-7.7) k/uL PT (9.0-12.0) sec INR (<1.2) ABG pH (7.35-7.45) ABG pCO2 (35-45) mmHg ABG pO2 (83-108) mmHg ABG Total CO2 (19-24) mmol/L ABG O2 Saturation (94-97) % ABG Hematocrit (34.0-46.0) % ABG Sodium (135-146) mmol/L ABG Potassium (3.4-4.5) mmol/L ABG Ionized Calcium (4.5-5.3) mg/dL ABG Glucose (75-99) mg/dL ABG Lactic Acid (0.5-1.6) mmol/L Hemoglobin (11.4-16.0) gm/dL Chloride (98-107) mmol/L BUN (7-17) mg/dL Glucose (74-99) mg/dL POC Glucose (mg/dL) 129 H 106 H (75-99) mg/dL Magnesium (1.6-2.3) mg/dL AST (14-36) U/L Alkaline Phosphatase (38-126) U/L Total Protein (6.3-8.2) g/dL Albumin (3.5-5.0) g/dL Arterial Blood Potassium (3.4-4.5) mmol/L Arterial Blood Glucose (75-99) mg/dL Crossmatch - Imaging and Cardiology Chest x-ray: image reviewed Assessment and Plan Assessment: 1. Severe double-vessel coronary artery disease 2. Unstable angina 3. Untreated Hypertension 4. Family history of premature coronary artery disease 5. Obesity 6. Elevated liver transaminase 7. Postoperative acute blood loss anemia, an expected outcome of surgery due to hemodilution and cardiopulmonary bypass Plan: 1. Continue to maximize medical therapy with aspirin, statin, and beta patricia. Will increase metoprolol tartrate 25 mg by mouth twice a day 2. Wean oxygen as tolerated. Encourage use of her incentive spirometry every hour while awake. 3. Remove Woodhull-Ene catheter, keep a right IJ Cordis in place to continue CVP monitoring. 4. Increase activity, ambulate as tolerated. PT/OT/cardiac rehab consulted. 5. Will monitor daily labs and x-rays. Electrolyte replacement per protocol. No transfusion. 6. Pain control with current medication regimen. Add Toradol. 7. Insulin management per primary care service. 8. GI/DVT prophylaxis. 9. Will discontinue mediastinal chest tube. Keep left and right pleural chest tubes for another 24 hours. 10. Keep Ponce catheter in place for another 24 hours. 11. More recommendations to follow based on patient's clinical course. Time with Patient: Greater than 30
[2018-10-22] MEDS: KETOROLAC 30 MG/ML 1 ML VIAL IVP SCH ×3 (08:38→22:16)
[2018-10-22] MEDS: HEPARIN SODIUM,PORCINE 5,000 UNIT/ML 1 ML VIAL SQ SCH ×3 (08:38→22:19)
[2018-10-22] MEDS: ATORVASTATIN 40 MG TAB PO SCH (08:39)
[2018-10-22] MEDS: ASPIRIN 325 MG TAB PO SCH (08:39)
[2018-10-22] MEDS: METOPROLOL TARTRATE 25 MG TAB PO SCH ×2 (08:39→22:18)
[2018-10-22] MEDS: MUPIROCIN 2% OINT 22 GM TUBE NASAL SCH ×2 (08:41→22:26)
[2018-10-22] MEDS: PANTOPRAZOLE 40 MG TABLET PO SCH (08:48)
[2018-10-22] MEDS: ceFAZolin IN SWFI 2 GM/20 ML SYRINGE IVP SCH (08:50)
--- NOTE | 2018-10-22 08:54 | XR ---
EXAMINATION TYPE: XR chest 1V portable DATE OF EXAM: 10/22/2018 COMPARISON: 10/21/2018 HISTORY: Shortness of breath FINDINGS: There are bilateral pleural effusions with cardiomegaly and bibasilar infiltrate. There is a diffuse interstitial pattern. Bilateral chest tubes, mediastinal drain, [place]-Ene catheter, and postsurgical changes stable. No sizable pneumothorax. ET tube has been removed. IMPRESSION: 1. Stable pleural-parenchymal changes correlate for CHF with basilar atelectasis or infiltrate. 2. Postsurgical changes
[2018-10-22] MEDS ORDERED: MAGNESIUM HYDROXIDE 2,400 MG/10 ML CUP PO PRN (09:00)
[2018-10-22] MEDS ORDERED: METOPROLOL TARTRATE 12.5 MG TAB PO SCH (09:00)
[2018-10-22] MEDS ORDERED: PANTOPRAZOLE 40 MG/10 ML VIAL IVP SCH (09:00)
[2018-10-22] MEDS ORDERED: BISACODYL 10 MG SUPP RECTAL PRN (09:00)
[2018-10-22 09:14] LABS: Glucose,Whole Blood 128 mg/dL (75-99)
[2018-10-22] MEDS: LACTATED RINGERS 1,000 ML IV SCH (10:31)
[2018-10-22] MEDS: CLOPIDOGREL 75 MG TAB PO SCH (10:34)
--- NOTE | 2018-10-22 11:02 | P.PN ---
Subjective Progress Note Date: 10/22/18 Principal diagnosis: status post CABG postoperative day #1 63-year-old here patient is coming to the intensive care unit postop following three-vessel bypass surgery. The patient underwent H[place]LESTON to LAD in addition to saphenous vein graft to PDA and diagonal. She comes in on a mechanical ventilator. I saw her in a SIMV mode. I switch her to an assist-control mode at the rate of 18 with a tidal volume of 400 and FiO2 set 100% with a PEEP of 5. The patient had a postop chest x-ray that shows adequate positioning of the tubes. ET tube is in a good location. The patient has mediastinal and pleural chest tube. The patient also has [place] catheter in place. Blood gases still pending for now. She is sedated with propofol at 20 mics. She is producing adequate amount of urine output. No other significant events in her cardiac rhythm is sinus for now. Output from the chest tube is minimal at this point in time. The cardiac output is 6.8 and an index of 3.8. Patient was reevaluated today on 10/22/2018, patient was extubated last night presently on nasal cannula, in no form of distress. Patient is relatively hypotensive, requiring fluid and volume, seems to be improving. She is not requiring any pressors or any inotropes at this point. In no distress, denies any shortness of breath no cough no wheezing no chest pain. Pain is fairly well controlled. Chest x-ray showed stable pleural parenchymal changes, and by basilar atelectasis. Postsurgical changes noted. Objective - Vital Signs Vital signs: Vital Signs Temp 37.4 F L 10/22/18 04:00 Pulse 102 H 10/22/18 07:32 Resp 18 10/22/18 07:00 BP 102/65 10/22/18 07:00 Pulse Ox 93 L 10/22/18 07:19 Intake & Output 10/21/18 10/22/18 10/22/18 18:59 06:59 18:59 Intake Total 9383.959 3627.659 171.5 Output Total 2855 1287 160 Balance -1491.372 315.659 11.5 Weight 85.3 kg Intake: IV 43.875 183.0 164 0.9 for CO/CI 60 0.9% NS Pressure Bag 36 117 24 Lactated Ringers 1,000 ml 140 @ 20 mls/hr IV .Q24H [facility] Rx#:[id number] Nitroglycerin-D5w Pmx 50 4.875 6.0 mg In Dextrose/Water 1 250ml.bag @ 5 MCG/MIN 1.5 mls/hr IV .Q24H [facility] Rx#: [id number] Intake, IV Titration 1148.027 1899.659 7.5 Amount ACETAMINOPHEN IV (For NPO 100 ) 1,000 mg In Empty Bag 1 bag @ 400 mls/hr IVPB Q6HR [facility] Rx#:[id number] Albumin Human 5% 250 ml 1000 750 In Empty Bag 1 bag @ 250 mls/hr IVPB Q1HR PRN Rx#: [id number] Dexmedetomidine/0.9% NaCl 9.843 0.809 (Pmx) 400 mcg In Empty Bag 1 bag @ Titrate IV . Q0M [facility] Rx#:[id number] Insulin Regular 100 unit 12.125 7.5 In Sodium Chloride 0.9% 100 ml @ Titrate IV .Q0M [facility] Rx#:[id number] Lactated Ringers 1,000 ml 200 650 @ 20 mls/hr IV .Q24H [facility] Rx#:[id number] Nitroglycerin-D5w Pmx 50 2.225 6.725 mg In Dextrose/Water 1 250ml.bag @ 5 MCG/MIN 1.5 mls/hr IV .Q24H [facility] Rx#: [id number] Propofol 1,000 mg In 7.685 Empty Bag 1 bag @ Titrate IV .Q0M PRN Rx#: [id number] Output: Chest Tube Drainage 375 445 140 Chest Tube Left 122 150 40 Chest Tube Mediastinal 180 180 50 Chest Tube Right 73 115 50 Drainage 50 20 20 Left Lower 50 Left Upper Medial Calf 20 20 Urine 930 822 Estimated Blood Loss 1500 Other: Voiding Method Indwelling Catheter Indwelling Catheter ABP, PAP, CO, CI - Last Documented Arterial Blood Pressure 91/51 Pulmonary Artery Pressure 22/11 Cardiac Output 5.8 Cardiac Index 3.1 - Exam Physical Exam: Revealed a 63-year-old female in no distress. Head: Atraumatic, normocephalic. HEENT:[Neck is supple.] [No neck masses.] [No thyromegaly.] [No JVD.] Chest: [Diminished breath sounds and crackles at the bases especially at the left base, symmetrical chest expansion. Sternum is stable. Cardiac Exam: [Normal S1 and S2, no S3 gallop, no murmur.] Abdomen: [Soft, nontender, no megaly, no rebound, no guarding, normal bowel sounds.] Extremities: [No clubbing, no edema, no cyanosis.] Neurological Exam: [No focal neurologic deficit.] Psychiatric: Normal mood, affect and mental status examination. Skin: No rashes. Lymphatics: No lymphadenopathy. - Labs CBC & Chem 7: 10/22/18 06:00 10/22/18 06:00 Labs: Abnormal Lab Results - Last 24 Hours (Table) 10/20/18 10/21/18 10/21/18 Range/Units 05:38 08:50 10:41 WBC (3.8-10.6) k/uL RBC (3.80-5.40) m/uL Hgb (11.4-16.0) gm/dL Hct (34.0-46.0) % Plt Count (150-450) k/uL Neutrophils # (1.3-7.7) k/uL PT (9.0-12.0) sec INR (<1.2) ABG pH 7.33 L (7.35-7.45) ABG pCO2 (35-45) mmHg ABG pO2 203 H 122 H (83-108) mmHg ABG Total CO2 25 H (19-24) mmol/L ABG O2 Saturation 100.0 H 99.0 H (94-97) % ABG Hematocrit (34.0-46.0) % ABG Sodium (135-146) mmol/L ABG Potassium (3.4-4.5) mmol/L ABG Ionized Calcium (4.5-5.3) mg/dL ABG Glucose 116 H 133 H (75-99) mg/dL ABG Lactic Acid (0.5-1.6) mmol/L Hemoglobin (11.4-16.0) gm/dL Chloride (98-107) mmol/L BUN (7-17) mg/dL Glucose (74-99) mg/dL POC Glucose (mg/dL) (75-99) mg/dL Magnesium (1.6-2.3) mg/dL AST (14-36) U/L Alkaline Phosphatase (38-126) U/L Total Protein (6.3-8.2) g/dL Albumin (3.5-5.0) g/dL Arterial Blood Potassium (3.4-4.5) mmol/L Arterial Blood Glucose 116 H 133 H (75-99) mg/dL Crossmatch See Detail 10/21/18 10/21/18 10/21/18 Range/Units 11:22 11:59 12:24 WBC (3.8-10.6) k/uL RBC (3.80-5.40) m/uL Hgb (11.4-16.0) gm/dL Hct (34.0-46.0) % Plt Count (150-450) k/uL Neutrophils # (1.3-7.7) k/uL PT (9.0-12.0) sec INR (<1.2) ABG pH 7.34 L (7.35-7.45) ABG pCO2 (35-45) mmHg ABG pO2 >420 H 285 H 392 H (83-108) mmHg ABG Total CO2 26 H 25 H (19-24) mmol/L ABG O2 Saturation 100.0 H 100.0 H 100.0 H (94-97) % ABG Hematocrit 28 L 26 L 27 L (34.0-46.0) % ABG Sodium 134 L 134 L 134 L (135-146) mmol/L ABG Potassium 6.0 H 6.1 H (3.4-4.5) mmol/L ABG Ionized Calcium 4.1 L 4.1 L 4.2 L (4.5-5.3) mg/dL ABG Glucose 124 H 214 H 213 H (75-99) mg/dL ABG Lactic Acid (0.5-1.6) mmol/L Hemoglobin 9.2 L 8.6 L 9.0 L (11.4-16.0) gm/dL Chloride (98-107) mmol/L BUN (7-17) mg/dL Glucose (74-99) mg/dL POC Glucose (mg/dL) (75-99) mg/dL Magnesium (1.6-2.3) mg/dL AST (14-36) U/L Alkaline Phosphatase (38-126) U/L Total Protein (6.3-8.2) g/dL Albumin (3.5-5.0) g/dL Arterial Blood Potassium 6.0 H 6.1 H (3.4-4.5) mmol/L Arterial Blood Glucose 124 H 214 H 213 H (75-99) mg/dL Crossmatch 10/21/18 10/21/18 10/21/18 Range/Units 13:01 14:02 15:05 WBC 19.7 H (3.8-10.6) k/uL RBC 3.28 L (3.80-5.40) m/uL Hgb 9.7 L D (11.4-16.0) gm/dL Hct 29.8 L (34.0-46.0) % Plt Count 144 L D (150-450) k/uL Neutrophils # 14.0 H (1.3-7.7) k/uL PT (9.0-12.0) sec INR (<1.2) ABG pH (7.35-7.45) ABG pCO2 (35-45) mmHg ABG pO2 >420 H 214 H (83-108) mmHg ABG Total CO2 25 H (19-24) mmol/L ABG O2 Saturation 100.0 H 100.0 H (94-97) % ABG Hematocrit 26 L 32 L (34.0-46.0) % ABG Sodium (135-146) mmol/L ABG Potassium (3.4-4.5) mmol/L ABG Ionized Calcium 4.1 L (4.5-5.3) mg/dL ABG Glucose 191 H 130 H (75-99) mg/dL ABG Lactic Acid 2.6 H* 2.1 H (0.5-1.6) mmol/L Hemoglobin 8.5 L 10.4 L (11.4-16.0) gm/dL Chloride (98-107) mmol/L BUN (7-17) mg/dL Glucose (74-99) mg/dL POC Glucose (mg/dL) (75-99) mg/dL Magnesium (1.6-2.3) mg/dL AST (14-36) U/L Alkaline Phosphatase (38-126) U/L Total Protein (6.3-8.2) g/dL Albumin (3.5-5.0) g/dL Arterial Blood Potassium (3.4-4.5) mmol/L Arterial Blood Glucose 191 H 130 H (75-99) mg/dL Crossmatch 10/21/18 10/21/18 10/21/18 Range/Units 15:05 15:05 15:07 WBC (3.8-10.6) k/uL RBC (3.80-5.40) m/uL Hgb (11.4-16.0) gm/dL Hct (34.0-46.0) % Plt Count (150-450) k/uL Neutrophils # (1.3-7.7) k/uL PT 12.7 H (9.0-12.0) sec INR 1.2 H (<1.2) ABG pH (7.35-7.45) ABG pCO2 (35-45) mmHg ABG pO2 (83-108) mmHg ABG Total CO2 (19-24) mmol/L ABG O2 Saturation (94-97) % ABG Hematocrit (34.0-46.0) % ABG Sodium (135-146) mmol/L ABG Potassium (3.4-4.5) mmol/L ABG Ionized Calcium (4.5-5.3) mg/dL ABG Glucose (75-99) mg/dL ABG Lactic Acid (0.5-1.6) mmol/L Hemoglobin (11.4-16.0) gm/dL Chloride 108 H (98-107) mmol/L BUN (7-17) mg/dL Glucose (74-99) mg/dL POC Glucose (mg/dL) 106 H (75-99) mg/dL Magnesium 2.7 H (1.6-2.3) mg/dL AST 105 H (14-36) U/L Alkaline Phosphatase (38-126) U/L Total Protein 5.1 L (6.3-8.2) g/dL Albumin 3.2 L (3.5-5.0) g/dL Arterial Blood Potassium (3.4-4.5) mmol/L Arterial Blood Glucose (75-99) mg/dL Crossmatch 10/21/18 10/21/18 10/21/18 Range/Units 15:48 16:58 17:00 WBC (3.8-10.6) k/uL RBC (3.80-5.40) m/uL Hgb (11.4-16.0) gm/dL Hct (34.0-46.0) % Plt Count (150-450) k/uL Neutrophils # (1.3-7.7) k/uL PT (9.0-12.0) sec INR (<1.2) ABG pH 7.29 L (7.35-7.45) ABG pCO2 51 H (35-45) mmHg ABG pO2 232 H (83-108) mmHg ABG Total CO2 26 H 25 H (19-24) mmol/L ABG O2 Saturation 99.8 H 98.1 H (94-97) % ABG Hematocrit (34.0-46.0) % ABG Sodium (135-146) mmol/L ABG Potassium (3.4-4.5) mmol/L ABG Ionized Calcium (4.5-5.3) mg/dL ABG Glucose (75-99) mg/dL ABG Lactic Acid (0.5-1.6) mmol/L Hemoglobin (11.4-16.0) gm/dL Chloride (98-107) mmol/L BUN (7-17) mg/dL Glucose (74-99) mg/dL POC Glucose (mg/dL) 108 H (75-99) mg/dL Magnesium (1.6-2.3) mg/dL AST (14-36) U/L Alkaline Phosphatase (38-126) U/L Total Protein (6.3-8.2) g/dL Albumin (3.5-5.0) g/dL Arterial Blood Potassium (3.4-4.5) mmol/L Arterial Blood Glucose (75-99) mg/dL Crossmatch 10/21/18 10/21/18 10/21/18 Range/Units 17:09 18:10 19:08 WBC 12.9 H (3.8-10.6) k/uL RBC 2.88 L (3.80-5.40) m/uL Hgb 8.8 L (11.4-16.0) gm/dL Hct 26.3 L (34.0-46.0) % Plt Count 128 L (150-450) k/uL Neutrophils # 10.0 H (1.3-7.7) k/uL PT (9.0-12.0) sec INR (<1.2) ABG pH (7.35-7.45) ABG pCO2 (35-45) mmHg ABG pO2 (83-108) mmHg ABG Total CO2 (19-24) mmol/L ABG O2 Saturation (94-97) % ABG Hematocrit (34.0-46.0) % ABG Sodium (135-146) mmol/L ABG Potassium (3.4-4.5) mmol/L ABG Ionized Calcium (4.5-5.3) mg/dL ABG Glucose (75-99) mg/dL ABG Lactic Acid (0.5-1.6) mmol/L Hemoglobin (11.4-16.0) gm/dL Chloride (98-107) mmol/L BUN (7-17) mg/dL Glucose (74-99) mg/dL POC Glucose (mg/dL) 134 H 134 H (75-99) mg/dL Magnesium (1.6-2.3) mg/dL AST (14-36) U/L Alkaline Phosphatase (38-126) U/L Total Protein (6.3-8.2) g/dL Albumin (3.5-5.0) g/dL Arterial Blood Potassium (3.4-4.5) mmol/L Arterial Blood Glucose (75-99) mg/dL Crossmatch 10/21/18 10/21/18 10/21/18 Range/Units 20:16 20:25 21:06 WBC 10.7 H (3.8-10.6) k/uL RBC 2.78 L (3.80-5.40) m/uL Hgb 8.3 L (11.4-16.0) gm/dL Hct 25.1 L (34.0-46.0) % Plt Count 132 L (150-450) k/uL Neutrophils # 8.8 H (1.3-7.7) k/uL PT (9.0-12.0) sec INR (<1.2) ABG pH (7.35-7.45) ABG pCO2 (35-45) mmHg ABG pO2 (83-108) mmHg ABG Total CO2 (19-24) mmol/L ABG O2 Saturation (94-97) % ABG Hematocrit (34.0-46.0) % ABG Sodium (135-146) mmol/L ABG Potassium (3.4-4.5) mmol/L ABG Ionized Calcium (4.5-5.3) mg/dL ABG Glucose (75-99) mg/dL ABG Lactic Acid (0.5-1.6) mmol/L Hemoglobin (11.4-16.0) gm/dL Chloride (98-107) mmol/L BUN (7-17) mg/dL Glucose (74-99) mg/dL POC Glucose (mg/dL) 138 H 131 H (75-99) mg/dL Magnesium (1.6-2.3) mg/dL AST (14-36) U/L Alkaline Phosphatase (38-126) U/L Total Protein (6.3-8.2) g/dL Albumin (3.5-5.0) g/dL Arterial Blood Potassium (3.4-4.5) mmol/L Arterial Blood Glucose (75-99) mg/dL Crossmatch 10/21/18 10/21/18 10/21/18 Range/Units 22:06 22:36 22:50 WBC (3.8-10.6) k/uL RBC 2.38 L (3.80-5.40) m/uL Hgb 7.4 L (11.4-16.0) gm/dL Hct 21.4 L (34.0-46.0) % Plt Count 111 L (150-450) k/uL Neutrophils # (1.3-7.7) k/uL PT (9.0-12.0) sec INR (<1.2) ABG pH (7.35-7.45) ABG pCO2 (35-45) mmHg ABG pO2 (83-108) mmHg ABG Total CO2 (19-24) mmol/L ABG O2 Saturation 98.0 H (94-97) % ABG Hematocrit (34.0-46.0) % ABG Sodium (135-146) mmol/L ABG Potassium (3.4-4.5) mmol/L ABG Ionized Calcium (4.5-5.3) mg/dL ABG Glucose (75-99) mg/dL ABG Lactic Acid (0.5-1.6) mmol/L Hemoglobin (11.4-16.0) gm/dL Chloride (98-107) mmol/L BUN (7-17) mg/dL Glucose (74-99) mg/dL POC Glucose (mg/dL) 135 H (75-99) mg/dL Magnesium (1.6-2.3) mg/dL AST (14-36) U/L Alkaline Phosphatase (38-126) U/L Total Protein (6.3-8.2) g/dL Albumin (3.5-5.0) g/dL Arterial Blood Potassium (3.4-4.5) mmol/L Arterial Blood Glucose (75-99) mg/dL Crossmatch 10/21/18 10/22/18 10/22/18 Range/Units 22:59 00:09 01:01 WBC (3.8-10.6) k/uL RBC (3.80-5.40) m/uL Hgb (11.4-16.0) gm/dL Hct (34.0-46.0) % Plt Count (150-450) k/uL Neutrophils # (1.3-7.7) k/uL PT (9.0-12.0) sec INR (<1.2) ABG pH (7.35-7.45) ABG pCO2 (35-45) mmHg ABG pO2 (83-108) mmHg ABG Total CO2 (19-24) mmol/L ABG O2 Saturation (94-97) % ABG Hematocrit (34.0-46.0) % ABG Sodium (135-146) mmol/L ABG Potassium (3.4-4.5) mmol/L ABG Ionized Calcium (4.5-5.3) mg/dL ABG Glucose (75-99) mg/dL ABG Lactic Acid (0.5-1.6) mmol/L Hemoglobin (11.4-16.0) gm/dL Chloride (98-107) mmol/L BUN (7-17) mg/dL Glucose (74-99) mg/dL POC Glucose (mg/dL) 139 H 146 H 142 H (75-99) mg/dL Magnesium (1.6-2.3) mg/dL AST (14-36) U/L Alkaline Phosphatase (38-126) U/L Total Protein (6.3-8.2) g/dL Albumin (3.5-5.0) g/dL Arterial Blood Potassium (3.4-4.5) mmol/L Arterial Blood Glucose (75-99) mg/dL Crossmatch 10/22/18 10/22/18 10/22/18 Range/Units 01:56 03:10 04:04 WBC (3.8-10.6) k/uL RBC (3.80-5.40) m/uL Hgb (11.4-16.0) gm/dL Hct (34.0-46.0) % Plt Count (150-450) k/uL Neutrophils # (1.3-7.7) k/uL PT (9.0-12.0) sec INR (<1.2) ABG pH (7.35-7.45) ABG pCO2 (35-45) mmHg ABG pO2 (83-108) mmHg ABG Total CO2 (19-24) mmol/L ABG O2 Saturation (94-97) % ABG Hematocrit (34.0-46.0) % ABG Sodium (135-146) mmol/L ABG Potassium (3.4-4.5) mmol/L ABG Ionized Calcium (4.5-5.3) mg/dL ABG Glucose (75-99) mg/dL ABG Lactic Acid (0.5-1.6) mmol/L Hemoglobin (11.4-16.0) gm/dL Chloride (98-107) mmol/L BUN (7-17) mg/dL Glucose (74-99) mg/dL POC Glucose (mg/dL) 143 H 135 H 138 H (75-99) mg/dL Magnesium (1.6-2.3) mg/dL AST (14-36) U/L Alkaline Phosphatase (38-126) U/L Total Protein (6.3-8.2) g/dL Albumin (3.5-5.0) g/dL Arterial Blood Potassium (3.4-4.5) mmol/L Arterial Blood Glucose (75-99) mg/dL Crossmatch 10/22/18 10/22/18 10/22/18 Range/Units 05:09 06:00 06:00 WBC (3.8-10.6) k/uL RBC 2.63 L (3.80-5.40) m/uL Hgb 7.7 L (11.4-16.0) gm/dL Hct 24.1 L (34.0-46.0) % Plt Count 115 L (150-450) k/uL Neutrophils # (1.3-7.7) k/uL PT (9.0-12.0) sec INR (<1.2) ABG pH (7.35-7.45) ABG pCO2 (35-45) mmHg ABG pO2 (83-108) mmHg ABG Total CO2 (19-24) mmol/L ABG O2 Saturation (94-97) % ABG Hematocrit (34.0-46.0) % ABG Sodium (135-146) mmol/L ABG Potassium (3.4-4.5) mmol/L ABG Ionized Calcium (4.5-5.3) mg/dL ABG Glucose (75-99) mg/dL ABG Lactic Acid (0.5-1.6) mmol/L Hemoglobin (11.4-16.0) gm/dL Chloride (98-107) mmol/L BUN 19 H (7-17) mg/dL Glucose 120 H (74-99) mg/dL POC Glucose (mg/dL) 128 H (75-99) mg/dL Magnesium (1.6-2.3) mg/dL AST 88 H (14-36) U/L Alkaline Phosphatase 29 L (38-126) U/L Total Protein 5.2 L (6.3-8.2) g/dL Albumin (3.5-5.0) g/dL Arterial Blood Potassium (3.4-4.5) mmol/L Arterial Blood Glucose (75-99) mg/dL Crossmatch 10/22/18 10/22/18 10/22/18 Range/Units 06:01 06:51 09:12 WBC (3.8-10.6) k/uL RBC (3.80-5.40) m/uL Hgb (11.4-16.0) gm/dL Hct (34.0-46.0) % Plt Count (150-450) k/uL Neutrophils # (1.3-7.7) k/uL PT (9.0-12.0) sec INR (<1.2) ABG pH (7.35-7.45) ABG pCO2 (35-45) mmHg ABG pO2 (83-108) mmHg ABG Total CO2 (19-24) mmol/L ABG O2 Saturation (94-97) % ABG Hematocrit (34.0-46.0) % ABG Sodium (135-146) mmol/L ABG Potassium (3.4-4.5) mmol/L ABG Ionized Calcium (4.5-5.3) mg/dL ABG Glucose (75-99) mg/dL ABG Lactic Acid (0.5-1.6) mmol/L Hemoglobin (11.4-16.0) gm/dL Chloride (98-107) mmol/L BUN (7-17) mg/dL Glucose (74-99) mg/dL POC Glucose (mg/dL) 129 H 106 H 128 H (75-99) mg/dL Magnesium (1.6-2.3) mg/dL AST (14-36) U/L Alkaline Phosphatase (38-126) U/L Total Protein (6.3-8.2) g/dL Albumin (3.5-5.0) g/dL Arterial Blood Potassium (3.4-4.5) mmol/L Arterial Blood Glucose (75-99) mg/dL Crossmatch Assessment and Plan Assessment: Impression: Status post CABG, postoperative day #1. 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 Strong family history of coronary artery disease History of hypertension Postoperative atelectasis, as expected. Recommendation: Patient was extubated uneventfully last night, we continue incentive spirometry, continue hemodynamic monitoring, continue to monitor output from chest tubes, chest x-ray was reviewed and discussed with the patient, continue medical therapy/aspirin statins and beta blockers wean oxygen as tolerated, possible removal of [place] catheter today. Increase activity as tolerated, early ambulation, continue insulin as per protocol, continue GI and DVT prophylaxis, possibly discontinue [place] catheter in the next 24 hours. Continue incentive spirometry. Will follow. Time with Patient: Less than 30
[2018-10-22 11:04] VITALS: BMI 38.0
[2018-10-22 12:09] LABS: Glucose,Whole Blood 125 mg/dL (75-99)
[2018-10-22 14:46] LABS: Glucose,Whole Blood 142 mg/dL (75-99)
[2018-10-22] MEDS: HYDROcodone/APAP 5-325MG 1 EACH TAB PO PRN (16:04)
[2018-10-22 16:19] LABS: Glucose,Whole Blood 190 mg/dL (75-99)
[2018-10-22 18:19] LABS: Glucose,Whole Blood 139 mg/dL (75-99)
--- NOTE | 2018-10-22 19:03 | P.PN ---
Subjective Patient is status post coronary artery bypass grafting. She had an abnormal stress test for evaluation of chest pain and underwent coronary angiography which revealed cirrhosis coronary artery disease She is coming along quite well. She has discomfort in the chest which is incisional does not appear short of breath Blood pressure 9200 mmHg pulse rate in the 90s sinus mechanism With sounds are reduced bilaterally Soft heart sounds Abdomen is soft. Extremities are warm Labs are reviewed sodium 141 potassium 4.1 BUN 19 creatinine 0.6 Impression coronary disease status post coronary artery bypass grafting Suggest continue antiplatelet agents and statins and low-dose beta blockers for now Will follow Objective - Vital Signs Vital signs: Vital Signs Temp 98.2 F 10/22/18 12:00 Pulse 95 10/22/18 16:00 Resp 28 H 10/22/18 16:00 BP 94/68 10/22/18 16:00 Pulse Ox 91 L 10/22/18 16:00 Intake & Output 10/22/18 10/22/18 10/23/18 06:59 18:59 06:59 Intake Total 1856.788 6740.008 Output Total 1287 315 Balance 315.659 876.008 Weight 85.3 kg 85.3 kg Intake: IV 183.0 1170 0.9 for CO/CI 60 0.9% NS Pressure Bag 117 60 Albumin Human 5% 250 ml 750 In Empty Bag 1 bag @ 250 mls/hr IVPB Q1HR PRN Rx#: [id number] Lactated Ringers 1,000 ml 360 @ 20 mls/hr IV .Q24H [facility] Rx#:[id number] Nitroglycerin-D5w Pmx 50 6.0 mg In Dextrose/Water 1 250ml.bag @ 5 MCG/MIN 1.5 mls/hr IV .Q24H [facility] Rx#: [id number] Intake, IV Titration 1419.659 21.008 Amount Albumin Human 5% 250 ml 750 In Empty Bag 1 bag @ 250 mls/hr IVPB Q1HR PRN Rx#: [id number] Dexmedetomidine/0.9% NaCl 0.809 (Pmx) 400 mcg In Empty Bag 1 bag @ Titrate IV . Q0M [facility] Rx#:[id number] Insulin Regular 100 unit 12.125 21.008 In Sodium Chloride 0.9% 100 ml @ Titrate IV .Q0M [facility] Rx#:[id number] Lactated Ringers 1,000 ml 650 @ 20 mls/hr IV .Q24H [facility] Rx#:[id number] Nitroglycerin-D5w Pmx 50 6.725 mg In Dextrose/Water 1 250ml.bag @ 5 MCG/MIN 1.5 mls/hr IV .Q24H [facility] Rx#: [id number] Output: Chest Tube Drainage 445 200 Chest Tube Left 150 70 Chest Tube Mediastinal 180 50 Chest Tube Right 115 80 Drainage 20 40 Left Upper Medial Calf 20 40 Urine 822 75 Other: Voiding Method Indwelling Catheter Indwelling Catheter ABP, PAP, CO, CI - Last Documented Arterial Blood Pressure 93/49 Pulmonary Artery Pressure 16/ Cardiac Output 5.8 Cardiac Index 3.1 - Labs CBC & Chem 7: 10/22/18 06:00 10/22/18 06:00 Labs: Abnormal Lab Results - Last 24 Hours (Table) 10/20/18 10/21/18 10/21/18 Range/Units 05:38 19:08 20:16 WBC (3.8-10.6) k/uL RBC (3.80-5.40) m/uL Hgb (11.4-16.0) gm/dL Hct (34.0-46.0) % Plt Count (150-450) k/uL Neutrophils # (1.3-7.7) k/uL ABG O2 Saturation (94-97) % BUN (7-17) mg/dL Glucose (74-99) mg/dL POC Glucose (mg/dL) 134 H 138 H (75-99) mg/dL AST (14-36) U/L Alkaline Phosphatase (38-126) U/L Total Protein (6.3-8.2) g/dL Crossmatch See Detail 10/21/18 10/21/18 10/21/18 Range/Units 20:25 21:06 22:06 WBC 10.7 H (3.8-10.6) k/uL RBC 2.78 L (3.80-5.40) m/uL Hgb 8.3 L (11.4-16.0) gm/dL Hct 25.1 L (34.0-46.0) % Plt Count 132 L (150-450) k/uL Neutrophils # 8.8 H (1.3-7.7) k/uL ABG O2 Saturation (94-97) % BUN (7-17) mg/dL Glucose (74-99) mg/dL POC Glucose (mg/dL) 131 H 135 H (75-99) mg/dL AST (14-36) U/L Alkaline Phosphatase (38-126) U/L Total Protein (6.3-8.2) g/dL Crossmatch 10/21/18 10/21/18 10/21/18 Range/Units 22:36 22:50 22:59 WBC (3.8-10.6) k/uL RBC 2.38 L (3.80-5.40) m/uL Hgb 7.4 L (11.4-16.0) gm/dL Hct 21.4 L (34.0-46.0) % Plt Count 111 L (150-450) k/uL Neutrophils # (1.3-7.7) k/uL ABG O2 Saturation 98.0 H (94-97) % BUN (7-17) mg/dL Glucose (74-99) mg/dL POC Glucose (mg/dL) 139 H (75-99) mg/dL AST (14-36) U/L Alkaline Phosphatase (38-126) U/L Total Protein (6.3-8.2) g/dL Crossmatch 10/22/18 10/22/18 10/22/18 Range/Units 00:09 01:01 01:56 WBC (3.8-10.6) k/uL RBC (3.80-5.40) m/uL Hgb (11.4-16.0) gm/dL Hct (34.0-46.0) % Plt Count (150-450) k/uL Neutrophils # (1.3-7.7) k/uL ABG O2 Saturation (94-97) % BUN (7-17) mg/dL Glucose (74-99) mg/dL POC Glucose (mg/dL) 146 H 142 H 143 H (75-99) mg/dL AST (14-36) U/L Alkaline Phosphatase (38-126) U/L Total Protein (6.3-8.2) g/dL Crossmatch 10/22/18 10/22/18 10/22/18 Range/Units 03:10 04:04 05:09 WBC (3.8-10.6) k/uL RBC (3.80-5.40) m/uL Hgb (11.4-16.0) gm/dL Hct (34.0-46.0) % Plt Count (150-450) k/uL Neutrophils # (1.3-7.7) k/uL ABG O2 Saturation (94-97) % BUN (7-17) mg/dL Glucose (74-99) mg/dL POC Glucose (mg/dL) 135 H 138 H 128 H (75-99) mg/dL AST (14-36) U/L Alkaline Phosphatase (38-126) U/L Total Protein (6.3-8.2) g/dL Crossmatch 10/22/18 10/22/18 10/22/18 Range/Units 06:00 06:00 06:01 WBC (3.8-10.6) k/uL RBC 2.63 L (3.80-5.40) m/uL Hgb 7.7 L (11.4-16.0) gm/dL Hct 24.1 L (34.0-46.0) % Plt Count 115 L (150-450) k/uL Neutrophils # (1.3-7.7) k/uL ABG O2 Saturation (94-97) % BUN 19 H (7-17) mg/dL Glucose 120 H (74-99) mg/dL POC Glucose (mg/dL) 129 H (75-99) mg/dL AST 88 H (14-36) U/L Alkaline Phosphatase 29 L (38-126) U/L Total Protein 5.2 L (6.3-8.2) g/dL Crossmatch 10/22/18 10/22/18 10/22/18 Range/Units 06:51 09:12 12:07 WBC (3.8-10.6) k/uL RBC (3.80-5.40) m/uL Hgb (11.4-16.0) gm/dL Hct (34.0-46.0) % Plt Count (150-450) k/uL Neutrophils # (1.3-7.7) k/uL ABG O2 Saturation (94-97) % BUN (7-17) mg/dL Glucose (74-99) mg/dL POC Glucose (mg/dL) 106 H 128 H 125 H (75-99) mg/dL AST (14-36) U/L Alkaline Phosphatase (38-126) U/L Total Protein (6.3-8.2) g/dL Crossmatch 10/22/18 10/22/18 10/22/18 Range/Units 14:44 16:17 18:18 WBC (3.8-10.6) k/uL RBC (3.80-5.40) m/uL Hgb (11.4-16.0) gm/dL Hct (34.0-46.0) % Plt Count (150-450) k/uL Neutrophils # (1.3-7.7) k/uL ABG O2 Saturation (94-97) % BUN (7-17) mg/dL Glucose (74-99) mg/dL POC Glucose (mg/dL) 142 H 190 H 139 H (75-99) mg/dL AST (14-36) U/L Alkaline Phosphatase (38-126) U/L Total Protein (6.3-8.2) g/dL Crossmatch
[2018-10-22 20:30] LABS: Glucose,Whole Blood 121 mg/dL (75-99)
[2018-10-22 21:16] LABS: Glucose,Whole Blood 133 mg/dL (75-99)
[2018-10-22 22:02] LABS: Glucose,Whole Blood 124 mg/dL (75-99)
[2018-10-22] MEDS: SENNOSIDES-DOCUSATE SODIUM 1 EACH TAB PO SCH (22:18)
[2018-10-22 23:01] LABS: Glucose,Whole Blood 125 mg/dL (75-99)
[2018-10-22] MEDS: INSULIN REGULAR 100 UNIT in SODIUM CHLORIDE 0.9% 100 ML IV SCH (23:13)
[2018-10-23 01:09] LABS: Glucose,Whole Blood 123 mg/dL (75-99)
[2018-10-23 03:07] LABS: Glucose,Whole Blood 119 mg/dL (75-99)
[2018-10-23] MEDS: CLEVIDIPINE BUTYRATE 25 MG in EMPTY BAG 1 BAG IV SCH (03:47)
[2018-10-23] MEDS: KETOROLAC 30 MG/ML 1 ML VIAL IVP SCH ×4 (04:08→21:01)
[2018-10-23 04:15] LABS: Glucose,Whole Blood 115 mg/dL (75-99)
[2018-10-23 04:43] LABS: Basophils % (A) 0 %; Eosinophils # (A) 0.1 k/uL (0-0.7); Eosinophils % (A) 0 %; HCT 22.7 % (34.0-46.0); HGB 7.6 gm/dL (11.4-16.0); Lymphocytes # (A) 2.8 k/uL (1.0-4.8); Lymphocytes % (A) 19 %; MCH 29.7 pg (25.0-35.0); MCHC 33.4 g/dL (31.0-37.0); MCV 88.9 fL (80.0-100.0); Mean Platelet Volume 8.2; Monocytes # (A) 0.6 k/uL (0-1.0); Monocytes % (A) 4 %; Neutrophils # (A) 11.2 k/uL (1.3-7.7); Neutrophils % (A) 75 %; Platelet Count 130 k/uL (150-450); RBC 2.55 m/uL (3.80-5.40); RDW 13.8 % (11.5-15.5); WBC 14.9 k/uL (3.8-10.6)
[2018-10-23 04:49] LABS: Ionized Calcium 5.1 mg/dL (4.5-5.3)
[2018-10-23 04:59] LABS: ALT 29 U/L (9-52); AST 56 U/L (14-36); African American GFR (CKD) >90 (>60 ml/min/1.73 sqM); Albumin 3.4 g/dL (3.5-5.0); Alkaline Phosphatase 31 U/L (38-126); Anion Gap 6 mmol/L; Blood Urea Nitrogen 22 mg/dL (7-17); Calcium 8.8 mg/dL (8.4-10.2); Carbon Dioxide 25 mmol/L (22-30); Chloride 107 mmol/L (98-107); Glucose 107 mg/dL (74-99); Potassium 3.8 mmol/L (3.5-5.1); Sodium 138 mmol/L (137-145); Total Bilirubin 0.9 mg/dL (0.2-1.3); Total Protein 5.2 g/dL (6.3-8.2)
[2018-10-23 05:16] LABS: Glucose,Whole Blood 102 mg/dL (75-99)
[2018-10-23] MEDS: HYDROcodone/APAP 5-325MG 1 EACH TAB PO PRN ×2 (06:18→13:05)
[2018-10-23] MEDS: PANTOPRAZOLE 40 MG TABLET PO SCH (06:18)
[2018-10-23] MEDS ORDERED: POTASSIUM CHLORIDE ER 20 MEQ TAB.ER PO SCH (07:00)
[2018-10-23 07:06] LABS: Glucose,Whole Blood 119 mg/dL (75-99)
--- NOTE | 2018-10-23 08:01 | XR ---
EXAMINATION TYPE: XR chest 1V portable DATE OF EXAM: 10/23/2018 COMPARISON: 10/22/2018 HISTORY: Shortness of breath FINDINGS: There are bilateral pleural effusions with cardiomegaly and bibasilar infiltrate. There is a diffuse interstitial pattern. Postoperative changes are seen. [place] catheters been removed. Bilateral ch est tube remain. IMPRESSION: 1. Diffuse bilateral pleural-parenchymal changes are stable. I represent pulmonary edema postoperativ cherelle versus pneumonia or atelectasis correlate clinically.
[2018-10-23] MEDS: HEPARIN SODIUM,PORCINE 5,000 UNIT/ML 1 ML VIAL SQ SCH ×2 (08:23→16:13)
[2018-10-23] MEDS: CLOPIDOGREL 75 MG TAB PO SCH (08:28)
[2018-10-23] MEDS: ASPIRIN 325 MG TAB PO SCH (08:28)
[2018-10-23] MEDS: ATORVASTATIN 40 MG TAB PO SCH (08:28)
[2018-10-23] MEDS: MUPIROCIN 2% OINT 22 GM TUBE NASAL SCH ×2 (08:29→21:02)
[2018-10-23] MEDS: METOPROLOL TARTRATE 25 MG TAB PO SCH ×3 (08:30→21:02)
[2018-10-23] MEDS: IPRATROPIUM-ALBUTEROL 3 ML NEB INHALATION SCH ×4 (08:36→19:48)
[2018-10-23 08:48] LABS: Glucose,Whole Blood 150 mg/dL (75-99)
[2018-10-23] MEDS ORDERED: FUROSEMIDE 10 MG/ML 2 ML VIAL IV ONE (09:00)
[2018-10-23 10:01] LABS: Glucose,Whole Blood 151 mg/dL (75-99)
[2018-10-23 11:16] LABS: Glucose,Whole Blood 128 mg/dL (75-99)
--- NOTE | 2018-10-23 12:13 | P.PN ---
Subjective Progress Note Date: 10/23/18 Principal diagnosis: Severe double-vessel coronary artery disease, preserved left ventricular function, mild aortic valve stenosis. Previous medical history of untreated hypertension, obesity, mildly elevated transaminases and family history of premature coronary artery disease. POD #1 urgent triple-vessel coronary artery bypass grafting using the left internal mammary artery to the left anterior descending coronary artery, a reverse greater saphenous vein graft from the aorta to the posterior descending coronary artery, a reverse greater saphenous vein graft from the aorta to the medial branch of the second diagonal coronary artery. Endoscopic harvesting of the left greater saphenous vein from the groin to above the ankle level, intraoperative transesophageal echocardiogram, epi-aortic scanning and graft flow measurements using the [employer] system. Postoperative acute blood loss anemia, expected outcome due to hemodilution and cardiopulmonary bypass. The patient is currently sitting up in a recliner in no acute distress. She does complain of surgical type sternal pain which is mostly relieved with ordered pain medication, denies shortness of breath. She is giving very little effort with her incentive spirometry use and coughing and needs much encour agement. No new events noted overnight. Objective - Vital Signs Vital signs: Vital Signs Temp 98.8 F 10/23/18 08:00 Pulse 93 10/23/18 11:47 Resp 21 10/23/18 11:00 BP 96/62 10/23/18 11:00 Pulse Ox 96 10/23/18 11:00 Intake & Output 10/22/18 10/23/18 10/23/18 18:59 06:59 18:59 Intake Total 1243.008 713.283 235.533 Output Total 385 721 730 Balance 858.008 -7.717 -494.467 Weight 85.3 kg 84.9 kg Intake: IV 1222 532 230 0.9% NS Pressure Bag 72 72 30 Albumin Human 5% 250 ml 750 In Empty Bag 1 bag @ 250 mls/hr IVPB Q1HR PRN Rx#: [id number] Lactated Ringers 1,000 ml 400 460 200 @ 20 mls/hr IV .Q24H ERIC Rx#:[id number] Intake, IV Titration 21.008 11.283 5.533 Amount Insulin Regular 100 unit 21.008 11.283 5.533 In Sodium Chloride 0.9% 100 ml @ Titrate IV .Q0M ERIC Rx#:[id number] Oral 170 Output: Chest Tube Drainage 200 290 100 Chest Tube Left 70 90 40 Chest Tube Mediastinal 50 Chest Tube Right 80 200 60 Drainage 40 30 Left Upper Medial Calf 40 30 Urine 145 401 630 Other: Voiding Method Indwelling Catheter Indwelling Catheter ABP, PAP, CO, CI - Last Documented Arterial Blood Pressure 93/48 Pulmonary Artery Pressure 16/11 Cardiac Output 5.8 Cardiac Index 3.1 - Constitutional General appearance: Present: cooperative, no acute distress, obese - Respiratory Details: Lungs sounds diminished and coarse bilaterally. Respirations even, nonlabored. Currently on 3 L nasal cannula with oxygen saturation 96%. Barely able to achieve 250 mL on her incentive spirometry. Weak cough. Left pleural chest tube to continuous wall suction, 60 mL serous drainage overnight 200 mL in the last 24 hours. Right pleural chest tube to continuous wall suction, 180 mL serous drainage overnight, 440 mL last 24 hours. No air leaks present. - Cardiovascular Details: S1, S2 present. Regular rate and rhythm, sinus rhythm to sinus tach on telemetry. Sternum stable. A/V epicardial pacemaker wires present, connected to generator, VVI mode with backup rate 50 bpm. Right internal jugular Cordis, left radial arterial line present. Heart hugger in place with patient demonstrating appropriate use although she does admit to needing help. Antiembolism stockings, SCDs present. - Gastrointestinal Gastrointestinal Comment(s): Abdomen soft, nontender, nondistended, obese. Hypoactive bowel sounds present 4 quadrants. Tolerating clear liquids. Positive flatus, negative bowel movement. - Genitourinary Genitourinary Comment(s): Ponce present draining clear, yellow urine. Output overnight 25-45 mL per hour. - Integumentary Integumentary Comment(s): Skin is warm and dry with evidence of good perfusion. Anterior chest incision well approximated and covered with dry intact dressing. Left lower extremity EVH site well approximated, KASSIDY drain present with minimal serous drainage. - Neurologic Neurologic: Present: CNII-XII intact - Musculoskeletal Musculoskeletal: Present: generalized weakness, strength equal bilaterally - Psychiatric Psychiatric: Present: A&O x's 3, appropriate affect - Allied health notes Allied health notes reviewed: nursing - Labs CBC & Chem 7: 10/23/18 04:15 10/23/18 04:15 Labs: Abnormal Lab Results - Last 24 Hours (Table) 10/22/18 10/22/18 10/22/18 Range/Units 12:07 14:44 16:17 WBC (3.8-10.6) k/uL RBC (3.80-5.40) m/uL Hgb (11.4-16.0) gm/dL Hct (34.0-46.0) % Plt Count (150-450) k/uL Neutrophils # (1.3-7.7) k/uL BUN (7-17) mg/dL Glucose (74-99) mg/dL POC Glucose (mg/dL) 125 H 142 H 190 H (75-99) mg/dL AST (14-36) U/L Alkaline Phosphatase (38-126) U/L Total Protein (6.3-8.2) g/dL Albumin (3.5-5.0) g/dL 10/22/18 10/22/18 10/22/18 Range/Units 18:18 20:28 21:15 WBC (3.8-10.6) k/uL RBC (3.80-5.40) m/uL Hgb (11.4-16.0) gm/dL Hct (34.0-46.0) % Plt Count (150-450) k/uL Neutrophils # (1.3-7.7) k/uL BUN (7-17) mg/dL Glucose (74-99) mg/dL POC Glucose (mg/dL) 139 H 121 H 133 H (75-99) mg/dL AST (14-36) U/L Alkaline Phosphatase (38-126) U/L Total Protein (6.3-8.2) g/dL Albumin (3.5-5.0) g/dL 10/22/18 10/22/18 10/23/18 Range/Units 22:01 22:58 01:08 WBC (3.8-10.6) k/uL RBC (3.80-5.40) m/uL Hgb (11.4-16.0) gm/dL Hct (34.0-46.0) % Plt Count (150-450) k/uL Neutrophils # (1.3-7.7) k/uL BUN (7-17) mg/dL Glucose (74-99) mg/dL POC Glucose (mg/dL) 124 H 125 H 123 H (75-99) mg/dL AST (14-36) U/L Alkaline Phosphatase (38-126) U/L Total Protein (6.3-8.2) g/dL Albumin (3.5-5.0) g/dL 10/23/18 10/23/18 10/23/18 Range/Units 03:03 04:14 04:15 WBC 14.9 H (3.8-10.6) k/uL RBC 2.55 L (3.80-5.40) m/uL Hgb 7.6 L (11.4-16.0) gm/dL Hct 22.7 L (34.0-46.0) % Plt Count 130 L (150-450) k/uL Neutrophils # 11.2 H (1.3-7.7) k/uL BUN (7-17) mg/dL Glucose (74-99) mg/dL POC Glucose (mg/dL) 119 H 115 H (75-99) mg/dL AST (14-36) U/L Alkaline Phosphatase (38-126) U/L Total Protein (6.3-8.2) g/dL Albumin (3.5-5.0) g/dL 10/23/18 10/23/18 10/23/18 Range/Units 04:15 05:15 07:05 WBC (3.8-10.6) k/uL RBC (3.80-5.40) m/uL Hgb (11.4-16.0) gm/dL Hct (34.0-46.0) % Plt Count (150-450) k/uL Neutrophils # (1.3-7.7) k/uL BUN 22 H (7-17) mg/dL Glucose 107 H (74-99) mg/dL POC Glucose (mg/dL) 102 H 119 H (75-99) mg/dL AST 56 H (14-36) U/L Alkaline Phosphatase 31 L (38-126) U/L Total Protein 5.2 L (6.3-8.2) g/dL Albumin 3.4 L (3.5-5.0) g/dL 10/23/18 10/23/18 10/23/18 Range/Units 08:46 09:56 11:14 WBC (3.8-10.6) k/uL RBC (3.80-5.40) m/uL Hgb (11.4-16.0) gm/dL Hct (34.0-46.0) % Plt Count (150-450) k/uL Neutrophils # (1.3-7.7) k/uL BUN (7-17) mg/dL Glucose (74-99) mg/dL POC Glucose (mg/dL) 150 H 151 H 128 H (75-99) mg/dL AST (14-36) U/L Alkaline Phosphatase (38-126) U/L Total Protein (6.3-8.2) g/dL Albumin (3.5-5.0) g/dL - Imaging and Cardiology Chest x-ray: report reviewed, image reviewed Assessment and Plan Assessment: 1. Severe double-vessel coronary artery disease 2. Preserved left ventricular function 3. Mild aortic valve stenosis 4. History of untreated hypertension 5. Obesity 6. History of mildly elevated transaminases 7. Family history of premature coronary artery disease 8. Postoperative acute blood loss anemia Plan: 1. Continue aspirin, statin, Plavix, beta patricia. Will increase as tolerated 2. Wean oxygen as tolerated. Encourage use of her incentive spirometry every hour while awake, patient needs much encouragement. 3. Increase activity, ambulate as tolerated. PT/OT/cardiac rehab following. 4. Bronchodilators per pulmonology. 5. Will monitor daily labs and x-rays. Electrolyte replacement per protocol. No transfusion. 6. Pain control with current medication regimen. 7. Insulin management per primary care service. 8. GI/DVT prophylaxis. 9. 20 mg IV push Lasix given. Discontinue Ponce catheter. 10. Likely will discontinue left pleural chest tube, KASSIDY drain. Will keep right pleural chest tube for another 24 hours. 11. More recommendations to follow based on patient's clinical course. Time with Patient: Greater than 30
--- NOTE | 2018-10-23 12:34 | P.PN ---
Subjective Progress Note Date: 10/23/18 Principal diagnosis: status post CABG postoperative day #2 63-year-old here patient is coming to the intensive care unit postop following three-vessel bypass surgery. The patient underwent HUDDLESTON to LAD in addition to saphenous vein graft to PDA and diagonal. She comes in on a mechanical ventilator. I saw her in a SIMV mode. I switch her to an assist-control mode at the rate of 18 with a tidal volume of 400 and FiO2 set 100% with a PEEP of 5. The patient had a postop chest x-ray that shows adequate positioning of the tubes. ET tube is in a good location. The patient has mediastinal and pleural chest tube. The patient also has [place]-Ene catheter in place. Blood gases still pending for now. She is sedated with propofol at 20 mics. She is producing adequate amount of urine output. No other significant events in her cardiac rhythm is sinus for now. Output from the chest tube is minimal at this point in time. The cardiac output is 6.8 and an index of 3.8. Patient was reevaluated today on 10/22/2018, patient was extubated last night presently on nasal cannula, in no form of distress. Patient is relatively hypotensive, requiring fluid and volume, seems to be improving. She is not requiring any pressors or any inotropes at this point. In no distress, denies any shortness of breath no cough no wheezing no chest pain. Pain is fairly well controlled. Chest x-ray showed stable pleural parenchymal changes, and by basilar atelectasis. Postsurgical changes noted. Reevaluated today on 10/23/2018, patient is about the same, however her chest x- ray seems to be worse, developing significant atelectasis at the bases especially at the right lower lobe. Patient is doing poorly with incentive spirometry. Patient is currently sitting in bed, in no distress, has some pain in the chest related to her surgery, denies shortness of breath, again she has very normal effort with her incentive spirometry, encourage to use it more often put some effort into it. Labs were reviewed hemoglobin is 7.6 WBC count is 14.5. Objective - Vital Signs Vital signs: Vital Signs Temp 98.8 F 10/23/18 08:00 Pulse 96 10/23/18 12:01 Resp 21 10/23/18 11:00 BP 96/62 10/23/18 11:00 Pulse Ox 96 10/23/18 11:00 Intake & Output 10/22/18 10/23/18 10/23/18 18:59 06:59 18:59 Intake Total 1243.008 713.283 235.533 Output Total 385 721 730 Balance 858.008 -7.717 -494.467 Weight 85.3 kg 84.9 kg Intake: IV 1222 532 230 0.9% NS Pressure Bag 72 72 30 Albumin Human 5% 250 ml 750 In Empty Bag 1 bag @ 250 mls/hr IVPB Q1HR PRN Rx#: [id number] Lactated Ringers 1,000 ml 400 460 200 @ 20 mls/hr IV .Q24H ERIC Rx#:[id number] Intake, IV Titration 21.008 11.283 5.533 Amount Insulin Regular 100 unit 21.008 11.283 5.533 In Sodium Chloride 0.9% 100 ml @ Titrate IV .Q0M ERIC Rx#:[id number] Oral 170 Output: Chest Tube Drainage 200 290 100 Chest Tube Left 70 90 40 Chest Tube Mediastinal 50 Chest Tube Right 80 200 60 Drainage 40 30 Left Upper Medial Calf 40 30 Urine 145 401 630 Other: Voiding Method Indwelling Catheter Indwelling Catheter ABP, PAP, CO, CI - Last Documented Arterial Blood Pressure 93/48 Pulmonary Artery Pressure 16/11 Cardiac Output 5.8 Cardiac Index 3.1 - Exam Physical Exam: Revealed a 63-year-old female in no distress. Head: Atraumatic, normocephalic. HEENT:[Neck is supple.] [No neck masses.] [No thyromegaly.] [No JVD.] Chest: [Diminished breath sounds and crackles at the bases Sternum is stable. Cardiac Exam: [Normal S1 and S2, no S3 gallop, no murmur.] Abdomen: [Soft, nontender, no megaly, no rebound, no guarding, normal bowel sounds.] Extremities: [No clubbing, no edema, no cyanosis.] Neurological Exam: [No focal neurologic deficit.] Psychiatric: Normal mood, affect and mental status examination. Skin: No rashes. Lymphatics: No lymphadenopathy. - Labs CBC & Chem 7: 10/23/18 04:15 10/23/18 04:15 Labs: Abnormal Lab Results - Last 24 Hours (Table) 10/22/18 10/22/18 10/22/18 Range/Units 14:44 16:17 18:18 WBC (3.8-10.6) k/uL RBC (3.80-5.40) m/uL Hgb (11.4-16.0) gm/dL Hct (34.0-46.0) % Plt Count (150-450) k/uL Neutrophils # (1.3-7.7) k/uL BUN (7-17) mg/dL Glucose (74-99) mg/dL POC Glucose (mg/dL) 142 H 190 H 139 H (75-99) mg/dL AST (14-36) U/L Alkaline Phosphatase (38-126) U/L Total Protein (6.3-8.2) g/dL Albumin (3.5-5.0) g/dL 10/22/18 10/22/18 10/22/18 Range/Units 20:28 21:15 22:01 WBC (3.8-10.6) k/uL RBC (3.80-5.40) m/uL Hgb (11.4-16.0) gm/dL Hct (34.0-46.0) % Plt Count (150-450) k/uL Neutrophils # (1.3-7.7) k/uL BUN (7-17) mg/dL Glucose (74-99) mg/dL POC Glucose (mg/dL) 121 H 133 H 124 H (75-99) mg/dL AST (14-36) U/L Alkaline Phosphatase (38-126) U/L Total Protein (6.3-8.2) g/dL Albumin (3.5-5.0) g/dL 10/22/18 10/23/18 10/23/18 Range/Units 22:58 01:08 03:03 WBC (3.8-10.6) k/uL RBC (3.80-5.40) m/uL Hgb (11.4-16.0) gm/dL Hct (34.0-46.0) % Plt Count (150-450) k/uL Neutrophils # (1.3-7.7) k/uL BUN (7-17) mg/dL Glucose (74-99) mg/dL POC Glucose (mg/dL) 125 H 123 H 119 H (75-99) mg/dL AST (14-36) U/L Alkaline Phosphatase (38-126) U/L Total Protein (6.3-8.2) g/dL Albumin (3.5-5.0) g/dL 10/23/18 10/23/18 10/23/18 Range/Units 04:14 04:15 04:15 WBC 14.9 H (3.8-10.6) k/uL RBC 2.55 L (3.80-5.40) m/uL Hgb 7.6 L (11.4-16.0) gm/dL Hct 22.7 L (34.0-46.0) % Plt Count 130 L (150-450) k/uL Neutrophils # 11.2 H (1.3-7.7) k/uL BUN 22 H (7-17) mg/dL Glucose 107 H (74-99) mg/dL POC Glucose (mg/dL) 115 H (75-99) mg/dL AST 56 H (14-36) U/L Alkaline Phosphatase 31 L (38-126) U/L Total Protein 5.2 L (6.3-8.2) g/dL Albumin 3.4 L (3.5-5.0) g/dL 10/23/18 10/23/18 10/23/18 Range/Units 05:15 07:05 08:46 WBC (3.8-10.6) k/uL RBC (3.80-5.40) m/uL Hgb (11.4-16.0) gm/dL Hct (34.0-46.0) % Plt Count (150-450) k/uL Neutrophils # (1.3-7.7) k/uL BUN (7-17) mg/dL Glucose (74-99) mg/dL POC Glucose (mg/dL) 102 H 119 H 150 H (75-99) mg/dL AST (14-36) U/L Alkaline Phosphatase (38-126) U/L Total Protein (6.3-8.2) g/dL Albumin (3.5-5.0) g/dL 10/23/18 10/23/18 Range/Units 09:56 11:14 WBC (3.8-10.6) k/uL RBC (3.80-5.40) m/uL Hgb (11.4-16.0) gm/dL Hct (34.0-46.0) % Plt Count (150-450) k/uL Neutrophils # (1.3-7.7) k/uL BUN (7-17) mg/dL Glucose (74-99) mg/dL POC Glucose (mg/dL) 151 H 128 H (75-99) mg/dL AST (14-36) U/L Alkaline Phosphatase (38-126) U/L Total Protein (6.3-8.2) g/dL Albumin (3.5-5.0) g/dL Assessment and Plan Assessment: Impression: Status post CABG, postoperative day # 2 Symptomatic multivessel coronary artery disease status post three-vessel bypass surgery. Strong family history of coronary artery disease History of hypertension Postoperative atelectasis, as expected. Patient was instructed on the use of incentive spirometry, and instructed to use it more often and with more effort. Recommendation:chest x-ray was reviewed and discussed with the patient, continue medical therapy/aspirin statins and beta blockers wean oxygen as tolerated, possible removal of [place]-Ene catheter today. Increase activity as tolerated, early ambulation, continue insulin as per protocol, continue GI and DVT prophylaxis, possibly discontinue Ponce catheter. Continue incentive spirometry. Will follow. Time with Patient: Less than 30
[2018-10-23 13:01] LABS: Glucose,Whole Blood 138 mg/dL (75-99)
--- NOTE | 2018-10-23 14:13 | P.PN ---
Subjective Progress Note Date: 10/22/18 Patient is status post coronary artery bypass grafting patient is status post extubation post CABG and patient has 2 chest tube left and right pleural midgastric chest tubes were removed patient has a Ralston-Ene in place blood pressure is low which is expected postoperatively after CABG. Cardiac output is 6.8 and index of 3.8 patient is presently on IV calcium channel patricia for vessel spasm, IV insulin which will be switched to subcutaneous tomorrow. Constitutional: Denied any fatigue denied any fever. Cardio vascular: Does have chest pain from surgery Gastrointestinal denied any nausea vomiting Pulmonary: Denied any shortness of breath cough Neurologic denied any new focal deficits All inpatient medications were reviewed and appropriate changes in these medications as dictated in the interval history and assessment and plan. Objective - Vital Signs Vital signs: Vital Signs Temp 98.8 F 10/23/18 08:00 Pulse 102 H 10/23/18 13:00 Resp 31 H 10/23/18 13:00 BP 132/77 10/23/18 13:00 Pulse Ox 94 L 10/23/18 13:00 Intake & Output 10/22/18 10/23/18 10/23/18 18:59 06:59 18:59 Intake Total 1243.008 713.283 327.533 Output Total 385 721 780 Balance 858.008 -7.717 -452.467 Weight 85.3 kg 84.9 kg Intake: IV 1222 532 322 0.9% NS Pressure Bag 72 72 42 Albumin Human 5% 250 ml 750 In Empty Bag 1 bag @ 250 mls/hr IVPB Q1HR PRN Rx#: [id number] Lactated Ringers 1,000 ml 400 460 280 @ 20 mls/hr IV .Q24H ERIC Rx#:[id number] Intake, IV Titration 21.008 11.283 5.533 Amount Insulin Regular 100 unit 21.008 11.283 5.533 In Sodium Chloride 0.9% 100 ml @ Titrate IV .Q0M ERIC Rx#:[id number] Oral 170 Output: Chest Tube Drainage 200 290 100 Chest Tube Left 70 90 40 Chest Tube Mediastinal 50 Chest Tube Right 80 200 60 Drainage 40 30 Left Upper Medial Calf 40 30 Urine 145 401 680 Other: Voiding Method Indwelling Catheter Indwelling Catheter Indwelling Catheter ABP, PAP, CO, CI - Last Documented Arterial Blood Pressure 113/46 Pulmonary Artery Pressure 16/11 Cardiac Output 5.8 Cardiac Index 3.1 - Exam PHYSICAL EXAMINATION: GENERAL: The patient is alert and oriented x3, not in any acute distress. Well developed, well nourished. She'll on [place] and chest tubes as mentioned above HEENT: Pupils are round and equally reacting to light. EOMI. No scleral icterus. No conjunctival pallor. Normocephalic, atraumatic. No pharyngeal erythema. No thyromegaly. CARDIOVASCULAR: S1 and S2 present. No murmurs, rubs, or gallops. PULMONARY: Good air entry into bilateral lung foote mild basilar crackles were appreciated ABDOMEN: Soft, nontender, nondistended, normoactive bowel sounds. No palpable organomegaly. MUSCULOSKELETAL: No joint swelling or deformity. EXTREMITIES: No cyanosis, clubbing, or pedal edema. NEUROLOGICAL: Gross neurological examination did not reveal any focal deficits. SKIN: No rashes. - Labs CBC & Chem 7: 10/23/18 04:15 10/23/18 04:15 Labs: Abnormal Lab Results - Last 24 Hours (Table) 10/22/18 10/22/18 10/22/18 Range/Units 14:44 16:17 18:18 WBC (3.8-10.6) k/uL RBC (3.80-5.40) m/uL Hgb (11.4-16.0) gm/dL Hct (34.0-46.0) % Plt Count (150-450) k/uL Neutrophils # (1.3-7.7) k/uL BUN (7-17) mg/dL Glucose (74-99) mg/dL POC Glucose (mg/dL) 142 H 190 H 139 H (75-99) mg/dL AST (14-36) U/L Alkaline Phosphatase (38-126) U/L Total Protein (6.3-8.2) g/dL Albumin (3.5-5.0) g/dL 10/22/18 10/22/18 10/22/18 Range/Units 20:28 21:15 22:01 WBC (3.8-10.6) k/uL RBC (3.80-5.40) m/uL Hgb (11.4-16.0) gm/dL Hct (34.0-46.0) % Plt Count (150-450) k/uL Neutrophils # (1.3-7.7) k/uL BUN (7-17) mg/dL Glucose (74-99) mg/dL POC Glucose (mg/dL) 121 H 133 H 124 H (75-99) mg/dL AST (14-36) U/L Alkaline Phosphatase (38-126) U/L Total Protein (6.3-8.2) g/dL Albumin (3.5-5.0) g/dL 10/22/18 10/23/18 10/23/18 Range/Units 22:58 01:08 03:03 WBC (3.8-10.6) k/uL RBC (3.80-5.40) m/uL Hgb (11.4-16.0) gm/dL Hct (34.0-46.0) % Plt Count (150-450) k/uL Neutrophils # (1.3-7.7) k/uL BUN (7-17) mg/dL Glucose (74-99) mg/dL POC Glucose (mg/dL) 125 H 123 H 119 H (75-99) mg/dL AST (14-36) U/L Alkaline Phosphatase (38-126) U/L Total Protein (6.3-8.2) g/dL Albumin (3.5-5.0) g/dL 10/23/18 10/23/18 10/23/18 Range/Units 04:14 04:15 04:15 WBC 14.9 H (3.8-10.6) k/uL RBC 2.55 L (3.80-5.40) m/uL Hgb 7.6 L (11.4-16.0) gm/dL Hct 22.7 L (34.0-46.0) % Plt Count 130 L (150-450) k/uL Neutrophils # 11.2 H (1.3-7.7) k/uL BUN 22 H (7-17) mg/dL Glucose 107 H (74-99) mg/dL POC Glucose (mg/dL) 115 H (75-99) mg/dL AST 56 H (14-36) U/L Alkaline Phosphatase 31 L (38-126) U/L Total Protein 5.2 L (6.3-8.2) g/dL Albumin 3.4 L (3.5-5.0) g/dL 10/23/18 10/23/18 10/23/18 Range/Units 05:15 07:05 08:46 WBC (3.8-10.6) k/uL RBC (3.80-5.40) m/uL Hgb (11.4-16.0) gm/dL Hct (34.0-46.0) % Plt Count (150-450) k/uL Neutrophils # (1.3-7.7) k/uL BUN (7-17) mg/dL Glucose (74-99) mg/dL POC Glucose (mg/dL) 102 H 119 H 150 H (75-99) mg/dL AST (14-36) U/L Alkaline Phosphatase (38-126) U/L Total Protein (6.3-8.2) g/dL Albumin (3.5-5.0) g/dL 10/23/18 10/23/18 10/23/18 Range/Units 09:56 11:14 13:00 WBC (3.8-10.6) k/uL RBC (3.80-5.40) m/uL Hgb (11.4-16.0) gm/dL Hct (34.0-46.0) % Plt Count (150-450) k/uL Neutrophils # (1.3-7.7) k/uL BUN (7-17) mg/dL Glucose (74-99) mg/dL POC Glucose (mg/dL) 151 H 128 H 138 H (75-99) mg/dL AST (14-36) U/L Alkaline Phosphatase (38-126) U/L Total Protein (6.3-8.2) g/dL Albumin (3.5-5.0) g/dL Assessment and Plan Plan: -Unstable angina with recent coronary artery disease status post CABG continue with the antiplatelet therapy statin beta patricia. -hypertension, postoperative hypotension which is expected patient will be slowly weaned of calcium patricia. -Postoperative atelectasis expected incentive spirometry -Blood sugars: Continue with IV insulin for today we'll switch to sliding scale insulin tomorrow
--- NOTE | 2018-10-23 14:15 | P.PN ---
Subjective Patient is status post coronary artery bypass grafting patient is status post extubation post CABG and patient has 2 chest tube left and right pleural midgastric chest tubes were removed patient has a [place]-Ene in place blood pressure is low which is expected postoperatively after CABG. Cardiac output is 6.8 and index of 3.8 patient is presently on IV calcium channel patricia for vessel spasm, IV insulin which will be switched to subcutaneous tomorrow. 10/23/2018 Patient blood pressures better today still has significant crackles patient will be increased to 2 consider spirometry patient the has very minimal drainage in both the left pleural and right pleural chest tubes. Constitutional: Denied any fatigue denied any fever. Cardio vascular: Does have chest pain from surgery Gastrointestinal denied any nausea vomiting Pulmonary: Denied any shortness of breath cough Neurologic denied any new focal deficits All inpatient medications were reviewed and appropriate changes in these medications as dictated in the interval history and assessment and plan. Objective - Vital Signs Vital signs: Vital Signs Temp 98.8 F 10/23/18 08:00 Pulse 101 H 10/23/18 14:00 Resp 31 H 10/23/18 14:00 BP 130/64 10/23/18 14:00 Pulse Ox 92 L 10/23/18 14:00 Intake & Output 10/22/18 10/23/18 10/23/18 18:59 06:59 18:59 Intake Total 1243.008 713.283 373.533 Output Total 385 721 800 Balance 858.008 -7.717 -426.467 Weight 85.3 kg 84.9 kg Intake: IV 1222 532 368 0.9% NS Pressure Bag 72 72 48 Albumin Human 5% 250 ml 750 In Empty Bag 1 bag @ 250 mls/hr IVPB Q1HR PRN Rx#: [id number] Lactated Ringers 1,000 ml 400 460 320 @ 20 mls/hr IV .Q24H ERIC Rx#:[id number] Intake, IV Titration 21.008 11.283 5.533 Amount Insulin Regular 100 unit 21.008 11.283 5.533 In Sodium Chloride 0.9% 100 ml @ Titrate IV .Q0M ERIC Rx#:[id number] Oral 170 Output: Chest Tube Drainage 200 290 120 Chest Tube Left 70 90 50 Chest Tube Mediastinal 50 Chest Tube Right 80 200 70 Drainage 40 30 Left Upper Medial Calf 40 30 Urine 145 401 680 Other: Voiding Method Indwelling Catheter Indwelling Catheter Indwelling Catheter ABP, PAP, CO, CI - Last Documented Arterial Blood Pressure 113/46 Pulmonary Artery Pressure 16/11 Cardiac Output 5.8 Cardiac Index 3.1 - Exam PHYSICAL EXAMINATION: GENERAL: The patient is alert and oriented x3, not in any acute distress. Well developed, well nourished. She'll on [place] and chest tubes as mentioned above HEENT: Pupils are round and equally reacting to light. EOMI. No scleral icterus. No conjunctival pallor. Normocephalic, atraumatic. No pharyngeal erythema. No thyromegaly. CARDIOVASCULAR: S1 and S2 present. No murmurs, rubs, or gallops. PULMONARY: Good air entry into bilateral lung foote mild basilar crackles were appreciated ABDOMEN: Soft, nontender, nondistended, normoactive bowel sounds. No palpable organomegaly. MUSCULOSKELETAL: No joint swelling or deformity. EXTREMITIES: No cyanosis, clubbing, or pedal edema. NEUROLOGICAL: Gross neurological examination did not reveal any focal deficits. SKIN: No rashes. - Labs CBC & Chem 7: 10/23/18 04:15 10/23/18 04:15 Labs: Abnormal Lab Results - Last 24 Hours (Table) 10/22/18 10/22/18 10/22/18 Range/Units 14:44 16:17 18:18 WBC (3.8-10.6) k/uL RBC (3.80-5.40) m/uL Hgb (11.4-16.0) gm/dL Hct (34.0-46.0) % Plt Count (150-450) k/uL Neutrophils # (1.3-7.7) k/uL BUN (7-17) mg/dL Glucose (74-99) mg/dL POC Glucose (mg/dL) 142 H 190 H 139 H (75-99) mg/dL AST (14-36) U/L Alkaline Phosphatase (38-126) U/L Total Protein (6.3-8.2) g/dL Albumin (3.5-5.0) g/dL 10/22/18 10/22/18 10/22/18 Range/Units 20:28 21:15 22:01 WBC (3.8-10.6) k/uL RBC (3.80-5.40) m/uL Hgb (11.4-16.0) gm/dL Hct (34.0-46.0) % Plt Count (150-450) k/uL Neutrophils # (1.3-7.7) k/uL BUN (7-17) mg/dL Glucose (74-99) mg/dL POC Glucose (mg/dL) 121 H 133 H 124 H (75-99) mg/dL AST (14-36) U/L Alkaline Phosphatase (38-126) U/L Total Protein (6.3-8.2) g/dL Albumin (3.5-5.0) g/dL 10/22/18 10/23/18 10/23/18 Range/Units 22:58 01:08 03:03 WBC (3.8-10.6) k/uL RBC (3.80-5.40) m/uL Hgb (11.4-16.0) gm/dL Hct (34.0-46.0) % Plt Count (150-450) k/uL Neutrophils # (1.3-7.7) k/uL BUN (7-17) mg/dL Glucose (74-99) mg/dL POC Glucose (mg/dL) 125 H 123 H 119 H (75-99) mg/dL AST (14-36) U/L Alkaline Phosphatase (38-126) U/L Total Protein (6.3-8.2) g/dL Albumin (3.5-5.0) g/dL 10/23/18 10/23/18 10/23/18 Range/Units 04:14 04:15 04:15 WBC 14.9 H (3.8-10.6) k/uL RBC 2.55 L (3.80-5.40) m/uL Hgb 7.6 L (11.4-16.0) gm/dL Hct 22.7 L (34.0-46.0) % Plt Count 130 L (150-450) k/uL Neutrophils # 11.2 H (1.3-7.7) k/uL BUN 22 H (7-17) mg/dL Glucose 107 H (74-99) mg/dL POC Glucose (mg/dL) 115 H (75-99) mg/dL AST 56 H (14-36) U/L Alkaline Phosphatase 31 L (38-126) U/L Total Protein 5.2 L (6.3-8.2) g/dL Albumin 3.4 L (3.5-5.0) g/dL 10/23/18 10/23/18 10/23/18 Range/Units 05:15 07:05 08:46 WBC (3.8-10.6) k/uL RBC (3.80-5.40) m/uL Hgb (11.4-16.0) gm/dL Hct (34.0-46.0) % Plt Count (150-450) k/uL Neutrophils # (1.3-7.7) k/uL BUN (7-17) mg/dL Glucose (74-99) mg/dL POC Glucose (mg/dL) 102 H 119 H 150 H (75-99) mg/dL AST (14-36) U/L Alkaline Phosphatase (38-126) U/L Total Protein (6.3-8.2) g/dL Albumin (3.5-5.0) g/dL 10/23/18 10/23/18 10/23/18 Range/Units 09:56 11:14 13:00 WBC (3.8-10.6) k/uL RBC (3.80-5.40) m/uL Hgb (11.4-16.0) gm/dL Hct (34.0-46.0) % Plt Count (150-450) k/uL Neutrophils # (1.3-7.7) k/uL BUN (7-17) mg/dL Glucose (74-99) mg/dL POC Glucose (mg/dL) 151 H 128 H 138 H (75-99) mg/dL AST (14-36) U/L Alkaline Phosphatase (38-126) U/L Total Protein (6.3-8.2) g/dL Albumin (3.5-5.0) g/dL Assessment and Plan Plan: -Unstable angina with recent coronary artery disease status post CABG continue with the antiplatelet therapy statin beta patricia. Just use probably will be removed today -hypertension, postoperative hypotension which is expected, improved now patient is on calcium patricia IV for vasospasm -Postoperative atelectasis expected incentive spirometry -Blood sugars: Patient is not diabetic we'll switch her to sliding scale insulin may not require any insulin or diabetic medications upon discharge. Her hemoglobin A1c is 6.1 consistent with prediabetes but not diabetes mellitus
--- NOTE | 2018-10-23 15:32 | P.PN ---
Subjective Niyah is doing well. She is sitting in chair looks very comfortable no respiratory distress She has minimal discomfort in the incision Breath sounds are reduced bilaterally but no rhonchi no crackles Heart sounds are soft and distant Abdomen is soft Extremities are warm Heart rates improved and are now in the 80s and 90s yesterday she was tachy cardic Heart rate in the 90s, respirations 20 113/68 mmHg At lites and normal renal function is normal Impression To shiva coronary artery disease Status post coronary artery bypass grafting Suggest Aspirin 81 mg by mouth daily along with Plavix 75 mg by mouth daily Statins Tomorrow we will increase the dose of metoprolol to 50 mg twice daily as long as her blood pressure can tolerate it Objective - Vital Signs Vital signs: Vital Signs Temp 98.8 F 10/23/18 08:00 Pulse 101 H 10/23/18 15:00 Resp 27 H 10/23/18 15:00 BP 113/68 10/23/18 15:00 Pulse Ox 91 L 10/23/18 15:00 Intake & Output 10/22/18 10/23/18 10/23/18 18:59 06:59 18:59 Intake Total 1243.008 713.283 373.533 Output Total 385 721 800 Balance 858.008 -7.717 -426.467 Weight 85.3 kg 84.9 kg Intake: IV 1222 532 368 0.9% NS Pressure Bag 72 72 48 Albumin Human 5% 250 ml 750 In Empty Bag 1 bag @ 250 mls/hr IVPB Q1HR PRN Rx#: [id number] Lactated Ringers 1,000 ml 400 460 320 @ 20 mls/hr IV .Q24H ERIC Rx#:[id number] Intake, IV Titration 21.008 11.283 5.533 Amount Insulin Regular 100 unit 21.008 11.283 5.533 In Sodium Chloride 0.9% 100 ml @ Titrate IV .Q0M ERIC Rx#:[id number] Oral 170 Output: Chest Tube Drainage 200 290 120 Chest Tube Left 70 90 50 Chest Tube Mediastinal 50 Chest Tube Right 80 200 70 Drainage 40 30 Left Upper Medial Calf 40 30 Urine 145 401 680 Other: Voiding Method Indwelling Catheter Indwelling Catheter Indwelling Catheter ABP, PAP, CO, CI - Last Documented Arterial Blood Pressure 113/46 Pulmonary Artery Pressure 16/11 Cardiac Output 5.8 Cardiac Index 3.1 - Labs CBC & Chem 7: 10/23/18 04:15 10/23/18 04:15 Labs: Abnormal Lab Results - Last 24 Hours (Table) 10/22/18 10/22/18 10/22/18 Range/Units 16:17 18:18 20:28 WBC (3.8-10.6) k/uL RBC (3.80-5.40) m/uL Hgb (11.4-16.0) gm/dL Hct (34.0-46.0) % Plt Count (150-450) k/uL Neutrophils # (1.3-7.7) k/uL BUN (7-17) mg/dL Glucose (74-99) mg/dL POC Glucose (mg/dL) 190 H 139 H 121 H (75-99) mg/dL AST (14-36) U/L Alkaline Phosphatase (38-126) U/L Total Protein (6.3-8.2) g/dL Albumin (3.5-5.0) g/dL 10/22/18 10/22/18 10/22/18 Range/Units 21:15 22:01 22:58 WBC (3.8-10.6) k/uL RBC (3.80-5.40) m/uL Hgb (11.4-16.0) gm/dL Hct (34.0-46.0) % Plt Count (150-450) k/uL Neutrophils # (1.3-7.7) k/uL BUN (7-17) mg/dL Glucose (74-99) mg/dL POC Glucose (mg/dL) 133 H 124 H 125 H (75-99) mg/dL AST (14-36) U/L Alkaline Phosphatase (38-126) U/L Total Protein (6.3-8.2) g/dL Albumin (3.5-5.0) g/dL 10/23/18 10/23/18 10/23/18 Range/Units 01:08 03:03 04:14 WBC (3.8-10.6) k/uL RBC (3.80-5.40) m/uL Hgb (11.4-16.0) gm/dL Hct (34.0-46.0) % Plt Count (150-450) k/uL Neutrophils # (1.3-7.7) k/uL BUN (7-17) mg/dL Glucose (74-99) mg/dL POC Glucose (mg/dL) 123 H 119 H 115 H (75-99) mg/dL AST (14-36) U/L Alkaline Phosphatase (38-126) U/L Total Protein (6.3-8.2) g/dL Albumin (3.5-5.0) g/dL 10/23/18 10/23/18 10/23/18 Range/Units 04:15 04:15 05:15 WBC 14.9 H (3.8-10.6) k/uL RBC 2.55 L (3.80-5.40) m/uL Hgb 7.6 L (11.4-16.0) gm/dL Hct 22.7 L (34.0-46.0) % Plt Count 130 L (150-450) k/uL Neutrophils # 11.2 H (1.3-7.7) k/uL BUN 22 H (7-17) mg/dL Glucose 107 H (74-99) mg/dL POC Glucose (mg/dL) 102 H (75-99) mg/dL AST 56 H (14-36) U/L Alkaline Phosphatase 31 L (38-126) U/L Total Protein 5.2 L (6.3-8.2) g/dL Albumin 3.4 L (3.5-5.0) g/dL 10/23/18 10/23/18 10/23/18 Range/Units 07:05 08:46 09:56 WBC (3.8-10.6) k/uL RBC (3.80-5.40) m/uL Hgb (11.4-16.0) gm/dL Hct (34.0-46.0) % Plt Count (150-450) k/uL Neutrophils # (1.3-7.7) k/uL BUN (7-17) mg/dL Glucose (74-99) mg/dL POC Glucose (mg/dL) 119 H 150 H 151 H (75-99) mg/dL AST (14-36) U/L Alkaline Phosphatase (38-126) U/L Total Protein (6.3-8.2) g/dL Albumin (3.5-5.0) g/dL 10/23/18 10/23/18 Range/Units 11:14 13:00 WBC (3.8-10.6) k/uL RBC (3.80-5.40) m/uL Hgb (11.4-16.0) gm/dL Hct (34.0-46.0) % Plt Count (150-450) k/uL Neutrophils # (1.3-7.7) k/uL BUN (7-17) mg/dL Glucose (74-99) mg/dL POC Glucose (mg/dL) 128 H 138 H (75-99) mg/dL AST (14-36) U/L Alkaline Phosphatase (38-126) U/L Total Protein (6.3-8.2) g/dL Albumin (3.5-5.0) g/dL
[2018-10-23] MEDS: INSULIN ASPART (NovoLOG) 100 UNIT/ML VIAL SQ SCH ×2 (17:46→21:02)
[2018-10-23 17:47] LABS: Glucose,Whole Blood 128 mg/dL (75-99)
[2018-10-23 20:42] LABS: Glucose,Whole Blood 106 mg/dL (75-99)
[2018-10-23] MEDS: SENNOSIDES-DOCUSATE SODIUM 1 EACH TAB PO SCH (21:01)
[2018-10-24] MEDS: LACTATED RINGERS 1,000 ML IV SCH (00:59)
[2018-10-24] MEDS: HEPARIN SODIUM,PORCINE 5,000 UNIT/ML 1 ML VIAL SQ SCH ×3 (00:59→17:48)
[2018-10-24] MEDS: KETOROLAC 30 MG/ML 1 ML VIAL IVP SCH ×4 (01:00→21:38)
[2018-10-24] MEDS: CLEVIDIPINE BUTYRATE 25 MG in EMPTY BAG 1 BAG IV SCH (04:33)
[2018-10-24 06:09] LABS: ALT 26 U/L (9-52); AST 39 U/L (14-36); African American GFR (CKD) >90 (>60 ml/min/1.73 sqM); Albumin 3.4 g/dL (3.5-5.0); Alkaline Phosphatase 41 U/L (38-126); Anion Gap 10 mmol/L; Blood Urea Nitrogen 24 mg/dL (7-17); Calcium 8.7 mg/dL (8.4-10.2); Carbon Dioxide 26 mmol/L (22-30); Chloride 105 mmol/L (98-107); Glucose 99 mg/dL (74-99); Magnesium 2.3 mg/dL (1.6-2.3); Potassium 3.6 mmol/L (3.5-5.1); Sodium 141 mmol/L (137-145); Total Bilirubin 0.8 mg/dL (0.2-1.3); Total Protein 5.4 g/dL (6.3-8.2)
[2018-10-24 06:27] LABS: Basophils # (A) 0.1 k/uL (0-0.2); Basophils % (A) 0 %; Eosinophils # (A) 0.3 k/uL (0-0.7); Eosinophils % (A) 2 %; HCT 22.9 % (34.0-46.0); HGB 7.6 gm/dL (11.4-16.0); Lymphocytes # (A) 3.3 k/uL (1.0-4.8); Lymphocytes % (A) 25 %; MCH 29.8 pg (25.0-35.0); MCV 90.1 fL (80.0-100.0); Mean Platelet Volume 7.8; Monocytes # (A) 0.6 k/uL (0-1.0); Monocytes % (A) 4 %; Neutrophils % (A) 67 %; Platelet Count 172 k/uL (150-450); RBC 2.55 m/uL (3.80-5.40); RDW 14.5 % (11.5-15.5); WBC 13.4 k/uL (3.8-10.6)
[2018-10-24] MEDS ORDERED: Potassium Replacement Protocol 1 EACH MISC MISCELLANE PRN (06:45)
[2018-10-24] MEDS ORDERED: POTASSIUM CHLORIDE ER 20 MEQ TAB.ER PO SCH ×2 (07:00→19:00)
[2018-10-24 07:05] LABS: Glucose,Whole Blood 92 mg/dL (75-99)
[2018-10-24] MEDS: INSULIN ASPART (NovoLOG) 100 UNIT/ML VIAL SQ SCH ×4 (07:30→21:33)
[2018-10-24] MEDS: PANTOPRAZOLE 40 MG TABLET PO SCH (07:33)
[2018-10-24] MEDS: IPRATROPIUM-ALBUTEROL 3 ML NEB INHALATION SCH ×4 (07:48→20:23)
--- NOTE | 2018-10-24 07:57 | XR ---
EXAMINATION TYPE: XR chest 1V portable DATE OF EXAM: 10/24/2018 COMPARISON: 10/23/2018 HISTORY: Shortness of breath TECHNIQUE: Single frontal view of the chest is obtained. FINDINGS: There are bilateral pleural effusions with cardiomegaly and bibasilar infiltrate. There is a diffuse interstitial pattern. Postoperative changes are seen. [place]-Ene catheters been removed. Ch est tubes have been removed. No pneumothorax. IMPRESSION: 1. Diffuse bilateral pleural-parenchymal changes are stable. May represent pulmonary edema postoperat ively versus pneumonia or atelectasis correlate clinically.
[2018-10-24] MEDS: ASPIRIN 81 MG PO SCH (08:01)
[2018-10-24] MEDS: METOPROLOL TARTRATE 50 MG TAB PO SCH ×2 (08:01→21:37)
[2018-10-24] MEDS: ATORVASTATIN 40 MG TAB PO SCH (08:01)
[2018-10-24] MEDS: MUPIROCIN 2% OINT 22 GM TUBE NASAL SCH ×2 (08:02→21:57)
[2018-10-24] MEDS: HYDROcodone/APAP 5-325MG 1 EACH TAB PO PRN (08:10)
[2018-10-24] MEDS: CLOPIDOGREL 75 MG TAB PO SCH (08:10)
--- NOTE | 2018-10-24 08:40 | P.PN ---
Subjective Progress Note Date: 10/24/18 Principal diagnosis: Severe double-vessel coronary artery disease, preserved left ventricular function, mild aortic valve stenosis. Previous medical history of untreated hypertension, obesity, mildly elevated transaminases and family history of premature coronary artery disease. POD #2 urgent triple-vessel coronary artery bypass grafting using the left internal mammary artery to the left anterior descending coronary artery, a reverse greater saphenous vein graft from the aorta to the posterior descending coronary artery, a reverse greater saphenous vein graft from the aorta to the medial branch of the second diagonal coronary artery. Endoscopic harvesting of the left greater saphenous vein from the groin to above the ankle level, intraoperative transesophageal echocardiogram, epi-aortic scanning and graft flow measurements using the [employer] system. Postoperative acute blood loss anemia, expected outcome due to hemodilution and cardiopulmonary bypass. The patient is currently sitting up in a recliner in no acute distress. She does complain of surgical type pain which is controlled on ordered pain medication, denies shortness of breath. Chest tubes were discontinued yesterday, patient ambulated minimally in the siegel yesterday. She is much more alert and giving more effort to her pulmonary hygiene. No new concerns. Objective - Vital Signs Vital signs: Vital Signs Temp 98.7 F 10/24/18 05:00 Pulse 116 H 10/24/18 07:48 Resp 22 10/24/18 07:00 BP 121/72 10/24/18 07:00 Pulse Ox 96 10/24/18 07:00 Intake & Output 10/23/18 10/24/18 10/24/18 18:59 06:59 18:59 Intake Total 547.533 446 66 Output Total 830 750 150 Balance -282.467 -304 -84 Weight 82.6 kg Intake: IV 542 396 66 0.9% NS Pressure Bag 72 36 6 Lactated Ringers 1,000 ml 470 360 60 @ 20 mls/hr IV .Q24H ERIC Rx#:[id number] Intake, IV Titration 5.533 Amount Insulin Regular 100 unit 5.533 In Sodium Chloride 0.9% 100 ml @ Titrate IV .Q0M ERIC Rx#:[id number] Oral 50 Output: Chest Tube Drainage 120 Chest Tube Left 50 Chest Tube Right 70 Drainage 30 Left Upper Medial Calf 30 Urine 680 750 150 Other: Voiding Method Indwelling Catheter Bedside Commode ABP, PAP, CO, CI - Last Documented Arterial Blood Pressure 113/46 Pulmonary Artery Pressure 16/11 Cardiac Output 5.8 Cardiac Index 3.1 - Constitutional General appearance: Present: cooperative, no acute distress, obese - Respiratory Details: Lungs sounds diminished bilaterally. Respirations even, nonlabored. Currently on 2 L nasal cannula with oxygen saturation 96%. Able to achieve 500 mL on her incentive spirometry. Weak cough. - Cardiovascular Details: S1, S2 present. Regular rate and rhythm, sinus rhythm to sinus tach on teleme try. Sternum stable. A/V epicardial pacemaker wires present, grounded. Right internal jugular Cordis present. Heart hugger in place with patient demonstrating appropriate use although she does admit to needing help. Antiembolism stockings, SCDs present. - Gastrointestinal Gastrointestinal Comment(s): Abdomen soft, nontender, nondistended, obese. Hypoactive bowel sounds present 4 quadrants. Tolerating diet. Positive flatus, negative bowel movement. - Genitourinary Genitourinary Comment(s): Ponce discontinued yesterday. Patient has voided multiple times, 150-250 mL at a time. - Integumentary Integumentary Comment(s): Skin is warm and dry with evidence of good perfusion. Anterior chest incision well approximated and covered with dry intact dressing. Left lower extremity EVH site well approximated without drainage. - Neurologic Neurologic: Present: CNII-XII intact - Musculoskeletal Musculoskeletal: Present: gait normal, strength equal bilaterally - Psychiatric Psychiatric: Present: A&O x's 3, appropriate affect, intact judgment & insight - Allied health notes Allied health notes reviewed: nursing - Labs CBC & Chem 7: 10/24/18 05:19 10/24/18 05:19 Labs: Abnormal Lab Results - Last 24 Hours (Table) 10/23/18 10/23/18 10/23/18 Range/Units 08:46 09:56 11:14 WBC (3.8-10.6) k/uL RBC (3.80-5.40) m/uL Hgb (11.4-16.0) gm/dL Hct (34.0-46.0) % Neutrophils # (1.3-7.7) k/uL BUN (7-17) mg/dL POC Glucose (mg/dL) 150 H 151 H 128 H (75-99) mg/dL AST (14-36) U/L Total Protein (6.3-8.2) g/dL Albumin (3.5-5.0) g/dL 10/23/18 10/23/18 10/23/18 Range/Units 13:00 17:28 20:40 WBC (3.8-10.6) k/uL RBC (3.80-5.40) m/uL Hgb (11.4-16.0) gm/dL Hct (34.0-46.0) % Neutrophils # (1.3-7.7) k/uL BUN (7-17) mg/dL POC Glucose (mg/dL) 138 H 128 H 106 H (75-99) mg/dL AST (14-36) U/L Total Protein (6.3-8.2) g/dL Albumin (3.5-5.0) g/dL 10/24/18 10/24/18 Range/Units 05:19 05:19 WBC 13.4 H (3.8-10.6) k/uL RBC 2.55 L (3.80-5.40) m/uL Hgb 7.6 L (11.4-16.0) gm/dL Hct 22.9 L (34.0-46.0) % Neutrophils # 9.0 H (1.3-7.7) k/uL BUN 24 H (7-17) mg/dL POC Glucose (mg/dL) (75-99) mg/dL AST 39 H (14-36) U/L Total Protein 5.4 L (6.3-8.2) g/dL Albumin 3.4 L (3.5-5.0) g/dL - Imaging and Cardiology Chest x-ray: report reviewed, image reviewed Assessment and Plan Assessment: 1. Severe double-vessel coronary artery disease 2. Preserved left ventricular function 3. Mild aortic valve stenosis 4. History of untreated hypertension 5. Obesity 6. History of mildly elevated transaminases 7. Family history of premature coronary artery disease 8. Postoperative acute blood loss anemia Plan: 1. Continue aspirin, statin, Plavix, beta patricia. Will increase beta patricia as tolerated. Increased to 50 mg twice daily today. 2. Wean oxygen as tolerated. Encourage use of her incentive spirometry every hour while awake, patient needs much encouragement. 3. Increase activity, ambulate as tolerated. PT/OT/cardiac rehab following. 4. Bronchodilators per pulmonology. 5. Will monitor daily labs and x-rays. Electrolyte replacement per protocol. No transfusion. 6. Pain control with current medication regimen. 7. Insulin management per primary care service. 8. GI/DVT prophylaxis. 9. Nursing to obtain peripheral IV, discontinue Cordis. Once Cordis discontinued, will place transfer orders for 3 S. cardiac stepdown unit. 10. Discharge planning in progress. Anticipate discharge to home with home care, although inpatient rehab is an option. 11. More recommendations to follow based on patient's clinical course. Time with Patient: Greater than 30
[2018-10-24] MEDS ORDERED: ACETAMINOPHEN TAB 500 MG TAB PO PRN (09:57)
--- NOTE | 2018-10-24 10:47 | P.PN ---
Subjective Progress Note Date: 10/24/18 Principal diagnosis: status post CABG postoperative day #3 63-year-old here patient is coming to the intensive care unit postop following three-vessel bypass surgery. The patient underwent [place] to LAD in addition to saphenous vein graft to PDA and diagonal. She comes in on a mechanical ventilator. I saw her in a SIMV mode. I switch her to an assist-control mode at the rate of 18 with a tidal volume of 400 and FiO2 set 100% with a PEEP of 5. The patient had a postop chest x-ray that shows adequate positioning of the tubes. ET tube is in a good location. The patient has mediastinal and pleural chest tube. The patient also has [place]-Ene catheter in place. Blood gases still pending for now. She is sedated with propofol at 20 mics. She is producing adequate amount of urine output. No other significant events in her cardiac rhythm is sinus for now. Output from the chest tube is minimal at this point in time. The cardiac output is 6.8 and an index of 3.8. Patient was reevaluated today on 10/22/2018, patient was extubated last night presently on nasal cannula, in no form of distress. Patient is relatively hypotensive, requiring fluid and volume, seems to be improving. She is not requiring any pressors or any inotropes at this point. In no distress, denies any shortness of breath no cough no wheezing no chest pain. Pain is fairly well controlled. Chest x-ray showed stable pleural parenchymal changes, and by basilar atelectasis. Postsurgical changes noted. Reevaluated today on 10/23/2018, patient is about the same, however her chest x- ray seems to be worse, developing significant atelectasis at the bases especially at the right lower lobe. Patient is doing poorly with incentive spirometry. Patient is currently sitting in bed, in no distress, has some pain in the chest related to her surgery, denies shortness of breath, again she has very normal effort with her incentive spirometry, encourage to use it more often put some effort into it. Labs were reviewed hemoglobin is 7.6 WBC count is 14.5. Reevaluated today on 10/24/2018, patient is doing much better, breathing a lot easier, doing much better with incentive spirometry, and her chest x-ray is showing definite improvement in her bibasilar atelectasis. Patient is sitting in a recliner, in no acute distress, chest tubes were discontinued yesterday, patient will be transferred out of the ICU to a cardiac floor on selective today. Labs were reviewed relatively normal basic metabolic profile and normal CBC except for hemoglobin of 7.6. Objective - Vital Signs Vital signs: Vital Signs Temp 98.4 F 10/24/18 08:00 Pulse 118 H 10/24/18 08:03 Resp 26 H 10/24/18 08:00 BP 110/67 10/24/18 08:00 Pulse Ox 98 10/24/18 08:00 Intake & Output 10/23/18 10/24/18 10/24/18 18:59 06:59 18:59 Intake Total 547.533 446 99 Output Total 830 750 450 Balance -282.467 -304 -351 Weight 82.6 kg Intake: IV 542 396 99 0.9% NS Pressure Bag 72 36 9 Lactated Ringers 1,000 ml 470 360 90 @ 20 mls/hr IV .Q24H ERIC Rx#:[id number] Intake, IV Titration 5.533 Amount Insulin Regular 100 unit 5.533 In Sodium Chloride 0.9% 100 ml @ Titrate IV .Q0M ERIC Rx#:[id number] Oral 50 Output: Chest Tube Drainage 120 Chest Tube Left 50 Chest Tube Right 70 Drainage 30 Left Upper Medial Calf 30 Urine 680 750 450 Other: Voiding Method Indwelling Catheter Bedside Commode Bedside Commode # Voids 1 ABP, PAP, CO, CI - Last Documented Arterial Blood Pressure 113/46 Pulmonary Artery Pressure 16/11 Cardiac Output 5.8 Cardiac Index 3.1 - Exam Physical Exam: Revealed a 63-year-old female in no distress. Head: Atraumatic, normocephalic. HEENT:[Neck is supple.] [No neck masses.] [No thyromegaly.] [No JVD.] Chest: [Diminished breath sounds and crackles at the bases Sternum is stable. Cardiac Exam: [Normal S1 and S2, no S3 gallop, no murmur.] Abdomen: [Soft, nontender, no megaly, no rebound, no guarding, normal bowel sounds.] Extremities: [No clubbing, no edema, no cyanosis.] Neurological Exam: [No focal neurologic deficit.] Psychiatric: Normal mood, affect and mental status examination. Skin: No rashes. Lymphatics: No lymphadenopathy. - Labs CBC & Chem 7: 10/24/18 05:19 10/24/18 05:19 Labs: Abnormal Lab Results - Last 24 Hours (Table) 10/23/18 10/23/18 10/23/18 Range/Units 11:14 13:00 17:28 WBC (3.8-10.6) k/uL RBC (3.80-5.40) m/uL Hgb (11.4-16.0) gm/dL Hct (34.0-46.0) % Neutrophils # (1.3-7.7) k/uL BUN (7-17) mg/dL POC Glucose (mg/dL) 128 H 138 H 128 H (75-99) mg/dL AST (14-36) U/L Total Protein (6.3-8.2) g/dL Albumin (3.5-5.0) g/dL 10/23/18 10/24/18 10/24/18 Range/Units 20:40 05:19 05:19 WBC 13.4 H (3.8-10.6) k/uL RBC 2.55 L (3.80-5.40) m/uL Hgb 7.6 L (11.4-16.0) gm/dL Hct 22.9 L (34.0-46.0) % Neutrophils # 9.0 H (1.3-7.7) k/uL BUN 24 H (7-17) mg/dL POC Glucose (mg/dL) 106 H (75-99) mg/dL AST 39 H (14-36) U/L Total Protein 5.4 L (6.3-8.2) g/dL Albumin 3.4 L (3.5-5.0) g/dL Assessment and Plan Assessment: Impression: Status post CABG, postoperative day # 3 Symptomatic multivessel coronary artery disease status post three-vessel bypass surgery. Strong family history of coronary artery disease History of hypertension Postoperative atelectasis, as expected. Improving based on the chest x-ray today, and patient is doing well with incentive spirometry, much better than yesterday. Recommendation: Continue incentive spirometry, ambulation, Plavix, beta blockers, statin, aspirin, wean off oxygen as tolerated, increase activity, continue bronchodilators, continue insulin as per protocol, continue to control pain, continue GI and DVT prophylaxis, agree with transferring the patient out of the ICU to a monitor bed on selective. Time with Patient: Less than 30
[2018-10-24] MEDS ORDERED: ARTIFICIAL TEARS-HYPROMELLOSE DROPS 15 ML BTL BOTH EYES PRN (11:27)
[2018-10-24 11:37] LABS: Glucose,Whole Blood 92 mg/dL (75-99)
--- NOTE | 2018-10-24 12:12 | P.PN ---
Subjective This is Melissa Troncoso PA-C dictating a progress note on this patient The patient was interviewed and examined by me IMPRESSION / ASSESSMENT: Triple-vessel coronary artery disease, status post CABG Heart rates consistently between 90 and 100 bpm, sinus rhythm, asymptomatic PLAN: Increase beta blockers, agree with increasing metoprolol to 50 twice a day Continue aspirin 81 mg daily and Plavix Increase atorvastatin to 40 mg daily HPI/interval history Patient is a 63-year-old female who presented with chest pain, and had an abnormal stress test, underwent coronary angiography which showed triple-vessel disease and underwent CABG. She is doing well postoperatively. Her chest tubes have been removed. She has resting comfortably in bed, minimal chest discomfort, does not appear short of breath. Her heart rate has been in the 9 0s. EXAMINATION Temperature 98.4F, Pulse 88 bpm, respirations 20, blood pressure 98/63, O2 saturation 93% on 2 L nasal cannula On exam patient is resting comfortably in bed, no acute distress On exam her heart is regular, no murmurs appreciated, rate in the 90s Breath sounds mildly diminished, equal bilaterally No lower extremity edema REVIEW OF LABS, ECG Hemoglobin 7.6, WBC 13.4, potassium 3.6, BUN 24, creatinine 0.7 Chest x-ray shows diffuse bilateral pleuralparenchymal changes which are stable from previous chest x-ray Pre-Op echocardiogram showed overall normal LV function, EF 60-65% Objective - Vital Signs Vital signs: Vital Signs Temp 98.4 F 10/24/18 08:00 Pulse 88 10/24/18 11:00 Resp 20 10/24/18 11:00 BP 98/63 10/24/18 11:00 Pulse Ox 93 L 10/24/18 11:00 Intake & Output 10/23/18 10/24/18 10/24/18 18:59 06:59 18:59 Intake Total 547.533 446 99 Output Total 830 750 450 Balance -282.467 -304 -351 Weight 82.6 kg Intake: IV 542 396 99 0.9% NS Pressure Bag 72 36 9 Lactated Ringers 1,000 ml 470 360 90 @ 20 mls/hr IV .Q24H [facility] Rx#:[id number] Intake, IV Titration 5.533 Amount Insulin Regular 100 unit 5.533 In Sodium Chloride 0.9% 100 ml @ Titrate IV .Q0M [facility] Rx#:[id number] Oral 50 Output: Chest Tube Drainage 120 Chest Tube Left 50 Chest Tube Right 70 Drainage 30 Left Upper Medial Calf 30 Urine 680 750 450 Other: Voiding Method Indwelling Catheter Bedside Commode Bedside Commode # Voids 1 ABP, PAP, CO, CI - Last Documented Arterial Blood Pressure 113/46 Pulmonary Artery Pressure 16/11 Cardiac Output 5.8 Cardiac Index 3.1 - Labs CBC & Chem 7: 10/24/18 05:19 10/24/18 05:19 Labs: Abnormal Lab Results - Last 24 Hours (Table) 10/23/18 10/23/18 10/23/18 Range/Units 13:00 17:28 20:40 WBC (3.8-10.6) k/uL RBC (3.80-5.40) m/uL Hgb (11.4-16.0) gm/dL Hct (34.0-46.0) % Neutrophils # (1.3-7.7) k/uL BUN (7-17) mg/dL POC Glucose (mg/dL) 138 H 128 H 106 H (75-99) mg/dL AST (14-36) U/L Total Protein (6.3-8.2) g/dL Albumin (3.5-5.0) g/dL 10/24/18 10/24/18 Range/Units 05:19 05:19 WBC 13.4 H (3.8-10.6) k/uL RBC 2.55 L (3.80-5.40) m/uL Hgb 7.6 L (11.4-16.0) gm/dL Hct 22.9 L (34.0-46.0) % Neutrophils # 9.0 H (1.3-7.7) k/uL BUN 24 H (7-17) mg/dL POC Glucose (mg/dL) (75-99) mg/dL AST 39 H (14-36) U/L Total Protein 5.4 L (6.3-8.2) g/dL Albumin 3.4 L (3.5-5.0) g/dL
--- NOTE | 2018-10-24 13:42 | P.PN ---
Subjective Patient is status post coronary artery bypass grafting patient is status post extubation post CABG and patient has 2 chest tube left and right pleural midgastric chest tubes were removed patient has a [place]-Ene in place blood pressure is low which is expected postoperatively after CABG. Cardiac output is 6.8 and index of 3.8 patient is presently on IV calcium channel patricia for vessel spasm, IV insulin which will be switched to subcutaneous tomorrow. 10/23/2018 Patient blood pressures better today still has significant crackles patient will be increased to 2 consider spirometry patient the has very minimal drainage in both the left pleural and right pleural chest tubes. 10/24/2018 Patient's chest tubes were removed and patient was much better after removal of chest tubes. Patient is able to breathe better right-sided atelectasis improved patient still has some left-sided crackles. Constitutional: Denied any fatigue denied any fever. Cardio vascular: Does have chest pain from surgery Gastrointestinal denied any nausea vomiting Pulmonary: Denied any shortness of breath cough Neurologic denied any new focal deficits All inpatient medications were reviewed and appropriate changes in these medications as dictated in the interval history and assessment and plan. Objective - Vital Signs Vital signs: Vital Signs Temp 98.2 F 10/24/18 12:00 Pulse 98 10/24/18 13:00 Resp 24 10/24/18 13:00 BP 136/91 10/24/18 13:00 Pulse Ox 96 10/24/18 13:00 Intake & Output 10/23/18 10/24/18 10/24/18 18:59 06:59 18:59 Intake Total 547.533 446 99 Output Total 830 750 470 Balance -282.467 -304 -371 Weight 82.6 kg Intake: IV 542 396 99 0.9% NS Pressure Bag 72 36 9 Lactated Ringers 1,000 ml 470 360 90 @ 20 mls/hr IV .Q24H [facility] Rx#:[id number] Intake, IV Titration 5.533 Amount Insulin Regular 100 unit 5.533 In Sodium Chloride 0.9% 100 ml @ Titrate IV .Q0M [facility] Rx#:[id number] Oral 50 Output: Chest Tube Drainage 120 Chest Tube Left 50 Chest Tube Right 70 Drainage 30 Left Upper Medial Calf 30 Urine 680 750 470 Other: Voiding Method Indwelling Catheter Bedside Commode Bedside Commode # Voids 1 # Bowel Movements 1 ABP, PAP, CO, CI - Last Documented Arterial Blood Pressure 113/46 Pulmonary Artery Pressure 16/11 Cardiac Output 5.8 Cardiac Index 3.1 - Exam PHYSICAL EXAMINATION: GENERAL: The patient is alert and oriented x3, not in any acute distress. Well developed, well nourished. Chest tubes were removed HEENT: Pupils are round and equally reacting to light. EOMI. No scleral icterus. No conjunctival pallor. Normocephalic, atraumatic. No pharyngeal erythema. No thyromegaly. CARDIOVASCULAR: S1 and S2 present. No murmurs, rubs, or gallops. PULMONARY: Good air entry into bilateral lung foote mild basilar crackles were appreciated ABDOMEN: Soft, nontender, nondistended, normoactive bowel sounds. No palpable organomegaly. MUSCULOSKELETAL: No joint swelling or deformity. EXTREMITIES: No cyanosis, clubbing, or pedal edema. NEUROLOGICAL: Gross neurological examination did not reveal any focal deficits. SKIN: No rashes. - Labs CBC & Chem 7: 10/24/18 05:19 10/24/18 05:19 Labs: Abnormal Lab Results - Last 24 Hours (Table) 10/23/18 10/23/18 10/24/18 Range/Units 17:28 20:40 05:19 WBC 13.4 H (3.8-10.6) k/uL RBC 2.55 L (3.80-5.40) m/uL Hgb 7.6 L (11.4-16.0) gm/dL Hct 22.9 L (34.0-46.0) % Neutrophils # 9.0 H (1.3-7.7) k/uL BUN (7-17) mg/dL POC Glucose (mg/dL) 128 H 106 H (75-99) mg/dL AST (14-36) U/L Total Protein (6.3-8.2) g/dL Albumin (3.5-5.0) g/dL 10/24/18 Range/Units 05:19 WBC (3.8-10.6) k/uL RBC (3.80-5.40) m/uL Hgb (11.4-16.0) gm/dL Hct (34.0-46.0) % Neutrophils # (1.3-7.7) k/uL BUN 24 H (7-17) mg/dL POC Glucose (mg/dL) (75-99) mg/dL AST 39 H (14-36) U/L Total Protein 5.4 L (6.3-8.2) g/dL Albumin 3.4 L (3.5-5.0) g/dL Assessment and Plan Plan: -Unstable angina with recent coronary artery disease status post CABG continue with the antiplatelet therapy statin beta patricia. Chest tubes were removed and patient atelectasis is improving -hypertension, postoperative hypotension which is expected, improved now patient is on calcium patricia IV for vasospasm -Postoperative atelectasis expected, incentive spirometry -Blood sugars: Patient is not diabetic we'll switch her to sliding scale insulin may not require any insulin or diabetic medications upon discharge. Her hemoglobin A1c is 6.1 consistent with prediabetes but not diabetes mellitus
[2018-10-24 17:08] LABS: Glucose,Whole Blood 88 mg/dL (75-99)
[2018-10-24 20:45] LABS: Glucose,Whole Blood 121 mg/dL (75-99)
[2018-10-24] MEDS: SENNOSIDES-DOCUSATE SODIUM 1 EACH TAB PO SCH ×2 (21:37→21:46)
[2018-10-25] MEDS: HEPARIN SODIUM,PORCINE 5,000 UNIT/ML 1 ML VIAL SQ SCH ×3 (00:26→16:37)
[2018-10-25] MEDS: KETOROLAC 30 MG/ML 1 ML VIAL IVP SCH ×3 (02:55→16:37)
[2018-10-25 03:02] LABS: Glucose,Whole Blood 103 mg/dL (75-99)
[2018-10-25 05:34] LABS: HCT 22.1 % (34.0-46.0); HGB 7.4 gm/dL (11.4-16.0); MCH 30.3 pg (25.0-35.0); MCHC 33.3 g/dL (31.0-37.0); Mean Platelet Volume 7.7; Platelet Count 238 k/uL (150-450); RBC 2.43 m/uL (3.80-5.40); RDW 14.4 % (11.5-15.5); WBC 12.3 k/uL (3.8-10.6)
[2018-10-25 05:45] LABS: African American GFR (CKD) >90 (>60 ml/min/1.73 sqM); Anion Gap 7 mmol/L; Blood Urea Nitrogen 20 mg/dL (7-17); Calcium 8.5 mg/dL (8.4-10.2); Carbon Dioxide 25 mmol/L (22-30); Chloride 108 mmol/L (98-107); Glucose 94 mg/dL (74-99); Potassium 4.4 mmol/L (3.5-5.1); Sodium 140 mmol/L (137-145)
[2018-10-25 06:43] LABS: Glucose,Whole Blood 92 mg/dL (75-99)
[2018-10-25] MEDS: INSULIN ASPART (NovoLOG) 100 UNIT/ML VIAL SQ SCH ×2 (06:44→12:06)
[2018-10-25] MEDS: PANTOPRAZOLE 40 MG TABLET PO SCH (07:12)
[2018-10-25] MEDS: IPRATROPIUM-ALBUTEROL 3 ML NEB INHALATION SCH ×3 (08:15→16:08)
[2018-10-25] MEDS ORDERED: METOPROLOL TARTRATE 25 MG TAB PO SCH (09:00)
[2018-10-25] MEDS: ASPIRIN 81 MG PO SCH (09:41)
[2018-10-25] MEDS: ATORVASTATIN 40 MG TAB PO SCH (09:41)
[2018-10-25] MEDS: CLOPIDOGREL 75 MG TAB PO SCH (09:41)
--- NOTE | 2018-10-25 09:56 | XR ---
EXAMINATION TYPE: XR chest 2V DATE OF EXAM: 10/25/2018 COMPARISON: 10/24/2018 TECHNIQUE: PA and lateral views submitted. HISTORY: Post cardiac surgery FINDINGS: There are bilateral pleural effusions with cardiomegaly and bibasilar infiltrate. There is a diffuse interstitial pattern. Postoperative changes are seen. No pneumothorax. IMPRESSION: 1. Diffuse bilateral pleural-parenchymal changes are stable. Most likely representing postoperative a telectasis with small effusion. Underlying pneumonia not excluded correlate clinically.
[2018-10-25 12:01] LABS: Glucose,Whole Blood 101 mg/dL (75-99)
--- NOTE | 2018-10-25 12:45 | P.PN ---
Subjective Progress Note Date: 10/29/18 Principal diagnosis: status post CABG postoperative day #4 63-year-old here patient is coming to the intensive care unit postop following three-vessel bypass surgery. The patient underwent [place] to LAD in addition to saphenous vein graft to PDA and diagonal. She comes in on a mechanical ventilator. I saw her in a SIMV mode. I switch her to an assist-control mode at the rate of 18 with a tidal volume of 400 and FiO2 set 100% with a PEEP of 5. The patient had a postop chest x-ray that shows adequate positioning of the tubes. ET tube is in a good location. The patient has mediastinal and pleural chest tube. The patient also has [place]-Ene catheter in place. Blood gases still pending for now. She is sedated with propofol at 20 mics. She is producing adequate amount of urine output. No other significant events in her cardiac rhythm is sinus for now. Output from the chest tube is minimal at this point in time. The cardiac output is 6.8 and an index of 3.8. Patient was reevaluated today on 10/22/2018, patient was extubated last night presently on nasal cannula, in no form of distress. Patient is relatively hypotensive, requiring fluid and volume, seems to be improving. She is not requiring any pressors or any inotropes at this point. In no distress, denies any shortness of breath no cough no wheezing no chest pain. Pain is fairly well controlled. Chest x-ray showed stable pleural parenchymal changes, and by basilar atelectasis. Postsurgical changes noted. Reevaluated today on 10/23/2018, patient is about the same, however her chest x- ray seems to be worse, developing significant atelectasis at the bases especially at the right lower lobe. Patient is doing poorly with incentive spirometry. Patient is currently sitting in bed, in no distress, has some pain in the chest related to her surgery, denies shortness of breath, again she has very normal effort with her incentive spirometry, encourage to use it more often put some effort into it. Labs were reviewed hemoglobin is 7.6 WBC count is 14.5. Reevaluated today on 10/24/2018, patient is doing much better, breathing a lot easier, doing much better with incentive spirometry, and her chest x-ray is showing definite improvement in her bibasilar atelectasis. Patient is sitting in a recliner, in no acute distress, chest tubes were discontinued yesterday, patient will be transferred out of the ICU to a cardiac floor on selective today. Labs were reviewed relatively normal basic metabolic profile and normal CBC except for hemoglobin of 7.6. Reevaluated today on , patient is postoperative day #4, patient is doing well, doing much per her with incentive spirometry, chest x-ray continues to show some bibasilar atelectasis. All her tubes and lines have been removed, her [place] catheter has been removed, patient is being considered for possible discharge planning today. All labs were reviewed today. Objective - Vital Signs Vital signs: Vital Signs Temp 99.7 F H 10/25/18 12:00 Pulse 86 10/25/18 12:00 Resp 24 10/25/18 12:00 BP 95/73 10/25/18 12:00 Pulse Ox 100 10/25/18 12:00 Intake & Output 10/24/18 10/25/18 10/25/18 18:59 06:59 18:59 Intake Total 99 700 Output Total 870 1700 150 Balance -771 -1000 -150 Weight 84 kg Intake: IV 99 0.9% NS Pressure Bag 9 Lactated Ringers 1,000 ml 90 @ 20 mls/hr IV .Q24H [facility] Rx#:[id number] Oral 700 Output: Urine 670 1550 150 Urine/Stool Mix 200 150 Other: Voiding Method Bedside Commode Bedside Commode # Voids 1 1 0 # Bowel Movements 1 1 1 ABP, PAP, CO, CI - Last Documented Arterial Blood Pressure 113/46 Pulmonary Artery Pressure 16/11 Cardiac Output 5.8 Cardiac Index 3.1 - Exam Physical Exam: Revealed a 63-year-old female in no distress. On room air. Head: Atraumatic, normocephalic. HEENT:[Neck is supple.] [No neck masses.] [No thyromegaly.] [No JVD.] Chest: [Diminished breath sounds and crackles at the bases Sternum is stable. Cardiac Exam: [Normal S1 and S2, no S3 gallop, no murmur.] Abdomen: [Soft, nontender, no megaly, no rebound, no guarding, normal bowel so unds.] Extremities: [No clubbing, no edema, no cyanosis.] Neurological Exam: [No focal neurologic deficit.] Psychiatric: Normal mood, affect and mental status examination. Skin: No rashes. Lymphatics: No lymphadenopathy. - Labs CBC & Chem 7: 10/25/18 04:38 10/25/18 04:38 Labs: Abnormal Lab Results - Last 24 Hours (Table) 10/24/18 10/25/18 10/25/18 Range/Units 20:44 03:00 04:38 WBC 12.3 H (3.8-10.6) k/uL RBC 2.43 L (3.80-5.40) m/uL Hgb 7.4 L (11.4-16.0) gm/dL Hct 22.1 L (34.0-46.0) % Chloride (98-107) mmol/L BUN (7-17) mg/dL POC Glucose (mg/dL) 121 H 103 H (75-99) mg/dL 10/25/18 10/25/18 Range/Units 04:38 11:59 WBC (3.8-10.6) k/uL RBC (3.80-5.40) m/uL Hgb (11.4-16.0) gm/dL Hct (34.0-46.0) % Chloride 108 H (98-107) mmol/L BUN 20 H (7-17) mg/dL POC Glucose (mg/dL) 101 H (75-99) mg/dL Assessment and Plan Assessment: Impression: Status post CABG, postoperative day #4 Symptomatic multivessel coronary artery disease status post three-vessel bypass surgery. Strong family history of coronary artery disease History of hypertension Postoperative atelectasis, as expected. Improving Recommendation: Continue incentive spirometry, ambulation, Plavix, beta blockers , statin, aspirin, wean off oxygen as tolerated, increase activity, continue bronchodilators, continue insulin as per protocol, continue to control pain, continue GI and DVT prophylaxis, agree with discharge planning, follow-up on outpatient basis. Time with Patient: Less than 30
--- NOTE | 2018-10-25 12:48 | P.VSCSTY ---
Greater Saphenous Vein Mapping This is bilateral lower extremity greater saphenous vein mapping. Date of service: 10/19/2018 Vein quality and ultrasound appearance: No endoluminal thrombus or wall changes are seen. Vein size groin right : Calf site groin left: 5 x 4.6 High thigh right: 2.9 x 3.4 high thigh left: 3.8 x 4.2 Mid thigh right: 2.5 x 2.2 mid thigh left: 2.3 x 2.8 Above-knee right: 3.2 x 3.0 above-knee left: 3.3 x 3.5 Below knee right: 3.1 x 3.1 below-knee left: 2.9 x 2.7 Mid calf right: 2.6 x 2.8 mid calf left: 2.3 x 1.7 Ankle right: 2.2 x 2.2 ankle left: 2.0 x 2.1 Impression: Usable bilateral greater saphenous vein..
--- NOTE | 2018-10-25 14:23 | P.PN ---
Subjective Patient is status post coronary artery bypass grafting patient is status post extubation post CABG and patient has 2 chest tube left and right pleural midgastric chest tubes were removed patient has a [place]-Ene in place blood pressure is low which is expected postoperatively after CABG. Cardiac output is 6.8 and index of 3.8 patient is presently on IV calcium channel patricia for vessel spasm, IV insulin which will be switched to subcutaneous tomorrow. 10/23/2018 Patient blood pressures better today still has significant crackles patient will be increased to 2 consider spirometry patient the has very minimal drainage in both the left pleural and right pleural chest tubes. 10/24/2018 Patient's chest tubes were removed and patient was much better after removal of chest tubes. Patient is able to breathe better right-sided atelectasis improved patient still has some left-sided crackles. 10/25/2018 Patient is clinically doing well, cardiothoracic surgery is planning and discharge the patient patient will not require any insulin or oral hypoglycemic agents patient is not diabetic. Constitutional: Denied any fatigue denied any fever. Cardio vascular: Does have chest pain from surgery Gastrointestinal denied any nausea vomiting Pulmonary: Denied any shortness of breath cough Neurologic denied any new focal deficits All inpatient medications were reviewed and appropriate changes in these medications as dictated in the interval history and assessment and plan. Objective - Vital Signs Vital signs: Vital Signs Temp 99.7 F H 10/25/18 12:00 Pulse 92 10/25/18 12:10 Resp 24 10/25/18 12:00 BP 95/73 10/25/18 12:00 Pulse Ox 100 10/25/18 12:00 Intake & Output 10/24/18 10/25/18 10/25/18 18:59 06:59 18:59 Intake Total 99 700 Output Total 870 1700 150 Balance -771 -1000 -150 Weight 84 kg Intake: IV 99 0.9% NS Pressure Bag 9 Lactated Ringers 1,000 ml 90 @ 20 mls/hr IV .Q24H [facility] Rx#:[id number] Oral 700 Output: Urine 670 1550 150 Urine/Stool Mix 200 150 Other: Voiding Method Bedside Commode Bedside Commode # Voids 1 1 0 # Bowel Movements 1 1 1 ABP, PAP, CO, CI - Last Documented Arterial Blood Pressure 113/46 Pulmonary Artery Pressure 16/11 Cardiac Output 5.8 Cardiac Index 3.1 - Exam PHYSICAL EXAMINATION: GENERAL: The patient is alert and oriented x3, not in any acute distress. Well developed, well nourished. Chest tubes were removed HEENT: Pupils are round and equally reacting to light. EOMI. No scleral icterus. No conjunctival pallor. Normocephalic, atraumatic. No pharyngeal erythema. No thyromegaly. CARDIOVASCULAR: S1 and S2 present. No murmurs, rubs, or gallops. PULMONARY: Good air entry into bilateral lung foote mild basilar crackles were appreciated ABDOMEN: Soft, nontender, nondistended, normoactive bowel sounds. No palpable organomegaly. MUSCULOSKELETAL: No joint swelling or deformity. EXTREMITIES: No cyanosis, clubbing, or pedal edema. NEUROLOGICAL: Gross neurological examination did not reveal any focal deficits. SKIN: No rashes. - Labs CBC & Chem 7: 10/25/18 04:38 10/25/18 04:38 Labs: Abnormal Lab Results - Last 24 Hours (Table) 10/24/18 10/25/18 10/25/18 Range/Units 20:44 03:00 04:38 WBC 12.3 H (3.8-10.6) k/uL RBC 2.43 L (3.80-5.40) m/uL Hgb 7.4 L (11.4-16.0) gm/dL Hct 22.1 L (34.0-46.0) % Chloride (98-107) mmol/L BUN (7-17) mg/dL POC Glucose (mg/dL) 121 H 103 H (75-99) mg/dL 10/25/18 10/25/18 Range/Units 04:38 11:59 WBC (3.8-10.6) k/uL RBC (3.80-5.40) m/uL Hgb (11.4-16.0) gm/dL Hct (34.0-46.0) % Chloride 108 H (98-107) mmol/L BUN 20 H (7-17) mg/dL POC Glucose (mg/dL) 101 H (75-99) mg/dL Assessment and Plan Plan: -Unstable angina with recent coronary artery disease status post CABG continue with the antiplatelet therapy statin beta patricia. Chest tubes were removed and patient atelectasis is improving -hypertension, postoperative hypotension which is expected, improved now patient is on calcium patricia IV for vasospasm -Postoperative atelectasis expected, incentive spirometry -Blood sugars: Patient is not diabetic we'll switch her to sliding scale insulin may not require any insulin or diabetic medications upon discharge. Her hemoglobin A1c is 6.1 consistent with prediabetes but not diabetes mellitus
--- NOTE | 2018-10-25 15:44 | P.DS ---
Providers Date of admission: 10/19/18 10:43 Expected date of discharge: 10/25/18 Attending physician: Darien Leigh Consults: 10/18/18 04:39 Consult Physician Routine Consulting Provider: Blas Gracia Consult Reason/Comments: chest pain Do you want consulting provider notified?: Yes 10/19/18 13:23 Consult Physician Routine Consulting Provider: Vickie Martinez Consult Reason/Comments: preop cabg Do you want consulting provider notified?: Already Contacted Consult to Anesthesia Routine Consulting Provider: Anesthesia,Services Consult Reason/Comments: Cardiac Surgery Pre-Op 10/19/18 14:13 Consult Physician Urgent Consulting Provider: Darien Leigh Consult Reason/Comments: open heart Do you want consulting provider notified?: Yes 10/21/18 14:24 Consult Physician Routine Consulting Provider: Elver Sylvester Consult Reason/Comments: Medical Management Do you want consulting provider notified?: Yes Primary care physician: Gogo Burroughs [facility] Course: FINAL DIAGNOSIS: 1. Severe double-vessel coronary artery disease 2. Preserved left ventricular function 3. Mild aortic valve stenosis 4. Unstable angina 5. History of untreated hypertension 6. Obesity 7. History of mildly elevated transaminases 8. Family history of premature coronary artery disease 9. Postoperative acute blood loss anemia PRINCIPAL PROCEDURE: 1. Selective coronary arteriography and left ventriculography completed by Dr. Hoskins 2. Urgent triple-vessel coronary artery bypass grafting using the left internal mammary artery to the left anterior descending coronary artery, a reverse greater saphenous vein graft from the aorta to the posterior descending coronary artery, a reverse greater saphenous vein graft from the aorta to the medial branch of the second diagonal coronary artery. 3. Endoscopic harvesting of the left greater saphenous vein from the groin to above the ankle level. 4. Intraoperative transesophageal echocardiogram and epi-aortic scanning. 5. Intraoperative graft flow measurement using the [employer] system. HISTORY OF PRESENT ILLNESS: This is a 63-year-old female patient who follows with Dr. Gogo Burroughs on an outpatient basis. She is a past medical history significant for untreated hypertension, obesity, mildly elevated transaminase, and family history of premature coronary artery disease with a brother having a myocardial infarction at age 43. Recently, she was having complaints of intermittent episodes of chest pain for about a one week period. She described the pain as substernal chest pain which radiated to her bilateral upper extremities. Subsequently she presented to the emergency department where a 12- lead EKG was completed which demonstrated no ischemic disease. She had serial troponins drawn which were negative, although due to her presenting symptoms and family history of coronary artery disease a consult was placed to Dr. Hoskins from [facility]. The patient underwent a stress test which was abnormal and demonstrated new wall motion abnormalities with hypokinesis of the anterior wall. For further evaluation of heart catheterization was completed which demonstrated her to have a 99% stenosis to her proximal left anterior descending coronary artery a 95% stenosis to her first diagonal branch coronary artery and an 80-90% stenosis to her posterior descending coronary artery. A 2-D echocardiogram was completed which showed her to have a normal left ventricular systolic function with an ejection fraction 60-65%, trace to mild aortic valve regurgitation without evidence of aortic stenosis and mild tricuspid valve regurgitation. Subsequently due to the above- mentioned findings a consult was placed to Dr. Darien Leigh from cardiothoracic surgery for further evaluation and myocardial revascularization recommendations. Dr. Leigh met with the patient and her , he discussed the risks and benefits of the surgery including the STS risk score and the patient wished to proceed with myocardial revascularization surgery. HOSPITAL COURSE: The patient was admitted to the hospital and after obtaining consent was brought to the operating room where Dr. Darien Leigh performed an urgent triple-vessel coronary artery bypass grafting using the left internal mammary artery to the left anterior descending coronary artery, a reverse greater saphenous vein graft from the aorta to the posterior descending coronary artery, and a reverse greater saphenous vein graft from the aorta to the medial branch of the second diagonal coronary artery. The patient also underwent endoscopic harvesting of the left greater saphenous vein from the groin to above the ankle level, intraoperative transesophageal echocardiogram, epi-aortic scanning and graft flow measurements using the [employer] system. Upon completion of the surgery the patient was transferred to the cardiovascular intensive care unit where she was recovered, monitored hemodynamically and where she progressed cardiac rehabilitation phase 1. She was extubated, all lines, tubes and supportive drips were discontinued when appropriate and transfer orders were placed to the cardiac stepdown unit, although due to lack of bed availability on the cardiac stepdown unit she was in the intensive care unit until discharge. Her oxygen has been weaned to room air, she continues to work with physical, occupational therapy and cardiac rehabilitation, she is tolerating an oral diet, her pain is well controlled and she is ready to be discharged home with [facility] care on postoperative day #4. She has received verbal and written instructions regarding her medications, activity restrictions, signs and sym ptoms requiring physician no dictation and instructions for her follow-up appointments. COMPLICATIONS: There were no postoperative complications. CONSULTATIONS: 1. Dr. Hoskins for cardiology management. 2. Dr. Martinez for pulmonary and ventilator management. 3. Dr. Sylvester for medical management. DISCHARGE INSTRUCTIONS: 1. No driving for 4 weeks, or until physician gives their ok. 2. The patient should sleep in their own bed, no medical bed needed. 3. Stairs are not an issue. If the bedroom is upstairs, it is advised that the patient go up at night and down in the morning for the first week. Go slowly, using handrail and take 1 step at a time. 4. FEI hose are to be worn for 30 days or until physician discontinues. 5. Heart hugger is to be worn 100% of the time until physician discontinues.(except when showering) 6. No lifting, pushing, or pulling more than 10 pounds for 12 weeks. The physician will advise of any restriction changes. 7. The patient is expected to continue the prescribed walking program. 8. Continue pain control per as needed orders. 9. Continue with incentive spirometry and splinting/heart hugger until otherwise directed by the physician. 10. Must shower daily using liquid antibacterial soap and a separate white washcloth for each individual incision. 11. Routine sternal incision care, no ointments, lotions or powders on the incisions. 12. Please notify surgeon/nurse practitioner for temperature greater than 101F or purulent drainage from incisions 13. Prescriptions for first 30 days given per cardiac surgery service. After 30 days, all prescription refills obtained through cardiology/primary care physician. 14. A red arm and has been placed on this patient it should be worn for 30 days post surgery and will be removed by the cardiothoracic surgeons. If an ER visit is necessary, please make sure the number on the red arm band is called. HOME HEALTH SERVICES TO PROVIDE: RN SKILLED HOME CARE SERVICES FOR POST-OP SURGICAL PATIENTS WITH THE FOLLOWING: Coronary Artery Bypass Surgery (CABG), Mitral Valve Replacement/Repair ( MVR), Aortic Valve Replacement/Repair (AVR) RN TO CONTINUE EDUCATION FROM ``ROAD TO A HEALTH HEART PATIENT EDUCATION MANUAL" (GIVEN TO PATIENT IN THE HOSPITAL) MEDICATION RECONCILIATION WITH EDUCATION NEEDED ON FIRST HOME VISIT EMPHASIZE IMPORTANCE OF WEARING BREAST SUPPORT/HEART HUGGER ENCOURAGE USE OF INCENTIVE SPIROMETER 10 X EVERY HOUR WHILE AWAKE ENCOURAGE UTILIZATION OF LOWER EXTREMITY COMPRESSION STOCKINGS/FEI HOSE and ELEVATE LEGS ABOVE LEVEL OF HEART WHILE AT REST. ENCOURAGE AMBULATION 3-5x/day INCREASING TOLERATES, WHILE AVOID EXTREMES IN TEMPERATURE FREQUENCY: RN TO OPEN THE PATIENT WITHIN 24 HOURS OF DISCHARGE FROM THE HOSPITAL WITH TELEHEALTH INSTALLED [place] [facility] [place] TO VISIT 2-3 X A WEEK FOR 4 WEEKS ESTABLISHED BY PATIENT NEEDS. REMOVAL OF SUTURES: NURSING SERVICES TO REMOVE SUTURES TWO WEEKS POST SURGICAL DATE [ default ]. If any questions regarding suture removal please call the office at [phone]. LABORATORY: CBC, CMP TO BE DRAWN ON THE THIRD DAY HOME, (RAN STAT) FAX RESULTS TO [phone]. TELEHEALTH PARAMETERS: WEIGHT: NOTIFY MD OF WEIGHT GAIN OF 2 LBS IN 24 HOURS OR 5 LBS IN ONE WEEK HR: NOTIFY MD OF HR <55 BPM OR HR>100 BPM BP: NOTIFY MD IF BP <90/55 OR BP>140/100 O2 SAT: NOTIFY MD IF PO2<93% ON ROOM AIR SEND TELEHEALTH REPORT TO ACCOUNT SPECIALIST AND CARDIOVASCULAR SURGEON THE FIRST WEEK OF CARE AND THEN BI-WEEKLY. PLEASE ADDITIONALLY COMMUNICATE ANY ABNORMALS AND NEW FINDINGS TO THE SURGEONS OFFICE. Patient Condition at Discharge: Fair Plan - Discharge Summary Discharge Rx Participant: Yes New Discharge Prescriptions: New Atorvastatin [Lipitor] 40 mg PO DAILY #30 tab Metoprolol Tartrate [Lopressor] 75 mg PO BID #90 tab Clopidogrel [Plavix] 75 mg PO DAILY #30 tab Pantoprazole [Protonix] 40 mg PO AC-BRKFST #30 tablet. Sennosidexiang-Docusate Sodium [Senokot-S] 2 each PO HS #14 tab Acetaminophen Tab [Tylenol] 1,000 mg PO Q6HR PRN tab PRN Reason: Fever and/ or Mild Pain Continue Cyclobenzaprine [Flexeril] 5 mg PO HS PRN PRN Reason: Muscle Pain Multivitamin [Multivitamins Adult Gummies] 1 tab PO DAILY Loratadine 10 mg PO DAILY PRN PRN Reason: Allergy Symptoms Aspirin [Adult Low Dose Aspirin EC] 81 mg PO DAILY PRN PRN Reason: Pain Discharge Medication List Aspirin [Adult Low Dose Aspirin EC] 81 mg PO DAILY PRN 10/18/18 [History] Cyclobenzaprine [Flexeril] 5 mg PO HS PRN 10/18/18 [History] Loratadine 10 mg PO DAILY PRN 10/18/18 [History] Multivitamin [Multivitamins Adult Gummies] 1 tab PO DAILY 10/18/18 [History] Acetaminophen Tab [Tylenol] 1,000 mg PO Q6HR PRN tab 10/25/18 [Rx] Atorvastatin [Lipitor] 40 mg PO DAILY #30 tab 10/25/18 [Rx] Clopidogrel [Plavix] 75 mg PO DAILY #30 tab 10/25/18 [Rx] Metoprolol Tartrate [Lopressor] 75 mg PO BID #90 tab 10/25/18 [Rx] Pantoprazole [Protonix] 40 mg PO AC-BRKFST #30 tablet. 10/25/18 [Rx] Sennosides-Docusate Sodium [Senokot-S] 2 each PO HS #14 tab 10/25/18 [Rx] Follow up Appointment(s)/Referral(s): Madhu Andrade MD [STAFF PHYSICIAN] - 11/28/18 1:00 pm Velvet Amos NPC [Nurse Practitioner] - 11/01/18 11:00 am Gogo Burroughs MD [Primary Care Provider] - 2 Weeks Darien Leigh MD [STAFF PHYSICIAN] - 11/30/18 10:[address] [facility], [NON-STAFF] - 10/26/18 Anthony Hoskins MD [STAFF PHYSICIAN] - 11/08/18 3:30 pm Ambulatory/Diagnostic Orders: Complete Blood Count w/diff [LAB.AMB] Time Frame: 10/29/18, Facility: [facility], Location: Laboratory [facility] Comprehensive Metabolic Panel [LAB.AMB] Time Frame: 10/29/18, Facility: [facility], Location: Laboratory [facility] Activity/Diet/Wound Care/Special Instructions: Care Plan Goals (MU): DISCHARGE INSTRUCTIONS: 1. No driving for 4 weeks, or until physician gives their ok. 2. The patient should sleep in their own bed, no medical bed needed. 3. Stairs are not an issue. If the bedroom is upstairs, it is advised that the patient go up at night and down in the morning for the first week. Go slowly, using handrail and take 1 step at a time. 4. FEI hose are to be worn for 30 days or until physician discontinues. 5. Heart hugger is to be worn 100% of the time until physician discontinues.(except when showering) 6. No lifting, pushing, or pulling more than 10 pounds for 12 weeks. The physician will advise of any restriction changes. 7. The patient is expected to continue the prescribed walking program. 8. Continue pain control per as needed orders. 9. Continue with incentive spirometry and splinting/heart hugger until otherwise directed by the physician. 10. Must shower daily using liquid antibacterial soap and a separate white washcloth for each individual incision. 11. Routine sternal incision care, no ointments, lotions or powders on the inc isions. 12. Please notify surgeon/nurse practitioner for temperature greater than 101F or purulent drainage from incisions 13. Prescriptions for first 30 days given per cardiac surgery service. After 30 days, all prescription refills obtained through cardiology/primary care physician. 14. A red arm and has been placed on this patient it should be worn for 30 days post surgery and will be removed by the cardiothoracic surgeons. If an ER visit is necessary, please make sure the number on the red arm band is called. HOME HEALTH SERVICES TO PROVIDE: RN SKILLED HOME CARE SERVICES FOR POST-OP SURGICAL PATIENTS WITH THE FOLLOWING: Coronary Artery Bypass Surgery (CABG), Mitral Valve Replacement/Repair ( MVR), Aortic Valve Replacement/Repair (AVR) RN TO CONTINUE EDUCATION FROM ``ROAD TO A HEALTH HEART PATIENT EDUCATION MANUAL" (GIVEN TO PATIENT IN THE HOSPITAL) MEDICATION RECONCILIATION WITH EDUCATION NEEDED ON FIRST HOME VISIT EMPHASIZE IMPORTANCE OF WEARING BREAST SUPPORT/HEART HUGGER ENCOURAGE USE OF INCENTIVE SPIROMETER 10 X EVERY HOUR WHILE AWAKE ENCOURAGE UTILIZATION OF LOWER EXTREMITY COMPRESSION STOCKINGS/FEI HOSE and ELEVATE LEGS ABOVE LEVEL OF HEART WHILE AT REST. ENCOURAGE AMBULATION 3-5x/day INCREASING TOLERATES, WHILE AVOID EXTREMES IN TEMPERATURE FREQUENCY: RN TO OPEN THE PATIENT WITHIN 24 HOURS OF DISCHARGE FROM THE HOSPITAL WITH TELEHEALTH INSTALLED AT [facility] [place], RN TO VISIT 2-3 X A WEEK FOR 4 WEEKS ESTABLISHED BY PATIENT NEEDS. REMOVAL OF SUTURES: NURSING SERVICES TO REMOVE SUTURES TWO WEEKS POST SURGICAL DATE [ default ]. If any questions regarding suture removal please call the office at [phone]. LABORATORY: CBC, CMP TO BE DRAWN ON THE THIRD DAY HOME, (RAN STAT) FAX RESULTS TO [phone]. TELEHEALTH PARAMETERS: WEIGHT: NOTIFY MD OF WEIGHT GAIN OF 2 LBS IN 24 HOURS OR 5 LBS IN ONE WEEK HR: NOTIFY MD OF HR <55 BPM OR HR>100 BPM BP: NOTIFY MD IF BP <90/55 OR BP>140/100 O2 SAT: NOTIFY MD IF PO2<93% ON ROOM AIR SEND TELEHEALTH REPORT TO ACCOUNT SPECIALIST AND CARDIOVASCULAR SURGEON THE FIRST WEEK OF CARE AND THEN BI-WEEKLY. PLEASE ADDITIONALLY COMMUNICATE ANY ABNORMALS AND NEW FINDINGS TO THE SURGEONS OFFICE. Discharge Disposition: HOME WITH HOME HEALTH SERVICES
[2018-10-25 16:07] VITALS: PULSE 90
[2018-10-25 16:37] VITALS: BP 113/68; RESP 21; TEMP 98.5
--- NOTE | 2018-10-25 17:07 | P.PN ---
Subjective This is Melissa Troncoso PA-C dictating a progress note on this patient The patient was interviewed and examined by me IMPRESSION / ASSESSMENT: Triple-vessel coronary artery disease, status post CABG Sinus rhythm, heart rate in the 90s, asymptomatic PLAN: Increase metoprolol to 75 mg twice a day Continue other cardiac medications including dual antiplatelet therapy and statins HPI/interval history Patient is a 63-year-old female who presented with chest pain and was found to have triple-vessel coronary artery disease and underwent CABG. She continues to do well postoperatively denies any chest pain, shortness of breath, palpitati ons, lightheaded or dizziness, syncope. Yesterday her metoprolol was increased to 50 mg twice a day, she continues to have elevated heart rates in the 90s to 100s, remains asymptomatic EXAMINATION Pulse 92, respirations 16, blood pressure 116/63, O2 saturation 95% on room air Patient seen and examined resting comfortably in her chair, no acute distress On exam her heart is regular, no murmurs appreciated, heart rate in the 90s Breath sounds mildly diminished, equal bilaterally No lower extremity edema REVIEW OF LABS, ECG WBC 12.3, hemoglobin 7.4, electrolytes within normal limits, BUN 20, creatinine 0.74 Bedside telemetry revealed sinus rhythm with rates in the 90s Objective - Vital Signs Vital signs: Vital Signs Temp 99.7 F H 10/25/18 12:00 Pulse 92 10/25/18 12:10 Resp 24 10/25/18 12:00 BP 95/73 10/25/18 12:00 Pulse Ox 100 10/25/18 12:00 Intake & Output 10/24/18 10/25/18 10/25/18 18:59 06:59 18:59 Intake Total 99 700 Output Total 870 1700 150 Balance -771 -1000 -150 Weight 84 kg Intake: IV 99 0.9% NS Pressure Bag 9 Lactated Ringers 1,000 ml 90 @ 20 mls/hr IV .Q24H COUNT INCLUDES THE [facility] Rx#:[id number] Oral 700 Output: Urine 670 1550 150 Urine/Stool Mix 200 150 Other: Voiding Method Bedside Commode Bedside Commode # Voids 1 1 0 # Bowel Movements 1 1 1 ABP, PAP, CO, CI - Last Documented Arterial Blood Pressure 113/46 Pulmonary Artery Pressure 16/11 Cardiac Output 5.8 Cardiac Index 3.1 - Labs CBC & Chem 7: 10/25/18 04:38 10/25/18 04:38 Labs: Abnormal Lab Results - Last 24 Hours (Table) 10/24/18 10/25/18 10/25/18 Range/Units 20:44 03:00 04:38 WBC 12.3 H (3.8-10.6) k/uL RBC 2.43 L (3.80-5.40) m/uL Hgb 7.4 L (11.4-16.0) gm/dL Hct 22.1 L (34.0-46.0) % Chloride (98-107) mmol/L BUN (7-17) mg/dL POC Glucose (mg/dL) 121 H 103 H (75-99) mg/dL 10/25/18 10/25/18 Range/Units 04:38 11:59 WBC (3.8-10.6) k/uL RBC (3.80-5.40) m/uL Hgb (11.4-16.0) gm/dL Hct (34.0-46.0) % Chloride 108 H (98-107) mmol/L BUN 20 H (7-17) mg/dL POC Glucose (mg/dL) 101 H (75-99) mg/dL
== END 2018-10-25 17:03 | disposition home health service (06) | DRG 234 ==
LOC: EC 01:57 → 1SOBS 04:41 → OBSVTOIN 10-19 10:43 → 2SICU 10-19 13:00
PROVIDERS: ADMIT Surgery; ATTEND Surgery
PROC: B54DZZZ Ultrasonography of Bilateral Lower Extremity Veins (ICD-10-PCS; 2018-10-19)
PROC: 4A023N7 Measurement of Cardiac Sampling and Pressure, Left Heart, Percutaneous Approach (ICD-10-PCS; 2018-10-20)
PROC: B2111ZZ Fluoroscopy of Multiple Coronary Arteries using Low Osmolar Contrast (ICD-10-PCS; 2018-10-20)
PROC: B2151ZZ Fluoroscopy of Left Heart using Low Osmolar Contrast (ICD-10-PCS; 2018-10-20)
PROC: 021109W Bypass Coronary Artery, Two Arteries from Aorta with Autologous Venous Tissue, Open Approach (ICD-10-PCS; 2018-10-21)
PROC: 06BQ4ZZ Excision of Left Saphenous Vein, Percutaneous Endoscopic Approach (ICD-10-PCS; 2018-10-21)
PROC: 5A1221Z Performance of Cardiac Output, Continuous (ICD-10-PCS; 2018-10-21)
PROC: B24BZZ4 Ultrasonography of Heart with Aorta, Transesophageal (ICD-10-PCS; 2018-10-21)
PROC: 02100Z9 Bypass Coronary Artery, One Artery from Left Internal Mammary, Open Approach (ICD-10-PCS; principal; 2018-10-21 08:00)
DX: I25.110 Atherosclerotic heart disease of native coronary artery with unstable angina pectoris (principal); D62 Acute posthemorrhagic anemia; J98.11 Atelectasis; I95.9 Hypotension, unspecified; I11.9 Hypertensive heart disease without heart failure; E66.9 Obesity, unspecified; E78.5 Hyperlipidemia, unspecified; I45.10 Unspecified right bundle-branch block; R74.0 Nonspecific elevation of levels of transaminase and lactic acid dehydrogenase [LDH]; I08.0 Rheumatic disorders of both mitral and aortic valves; Z79.82 Long term (current) use of aspirin; Z91.040 Latex allergy status; Z82.49 Family history of ischemic heart disease and other diseases of the circulatory system; Z82.5 Family history of asthma and other chronic lower respiratory diseases
CPT/HCPCS: 36415; 71045; 71046; 80048; 80053; 80061; 80074; 81003; 82150; 82272; 82330; 82805; 83036; 83690; 83735; 84100; 84132; 84443; 84484; 85025; 85027; 85379; 85520; 85610; 85730; 86850; 86891; 86900; 86901; 86920; 87070; 87086; 93005; 93306; 93351; 93458; 93880; 93970; 94150; 94640; 94667; 94668; 99285

== ENCOUNTER → 2018-12-12 | Outpatient (CLI) | payer SELFPAY ==
[2018-12-12 15:59] LABS: Chol/HDL Ratio 2.28; LDL Cholesterol,Calculated 46.6 mg/dL (0.0-131.0); VLDL Calculation 17.4 mg/dL (5.00-40.00)
== END | disposition home or self-care (01) ==
LOC: LABWHC1 08:02
PROVIDERS: ATTEND Internal Medicine Cardiovascular Disease
DX: I25.10 Atherosclerotic heart disease of native coronary artery without angina pectoris (principal); E78.5 Hyperlipidemia, unspecified
CPT/HCPCS: 36415; 80061; 84450; 84460

== ENCOUNTER → 2023-11-14 | Outpatient (CLI) | payer MEDICARE ==
[2023-11-14 18:18] LABS: HGB 14.6 g/dL (12.0-15.0); MCH 30.3 pg (27.0-32.0); MCHC 33.2 g/dL (32.0-37.0); MCV 91.3 FL (80.0-97.0); Mean Platelet Volume 10.6 FL (9.5-12.2); NRBC Per 100 WBC 0 X 10*3/uL (0.00-0.01); Platelet Count 300 X 10*3/uL (140-440); RBC 4.82 X 10*6/uL (4.10-5.20); RDW 12.9 % (11.5-14.5)
[2023-11-14 20:53] LABS: Blood Urea Nitrogen 21.3 mg/dL (9.0-27.0); Carbon Dioxide 24.5 mmol/L (21.6-31.8); Chloride 105 mmol/L (96-109); Potassium 4.1 mmol/L (3.5-5.5); Sodium 142 mmol/L (135-145)
== END | disposition home or self-care (01) ==
LOC: LABPAT 14:07
PROVIDERS: ATTEND Internal Medicine Interventional Cardiology
DX: Z01.812 Encounter for preprocedural laboratory examination (principal); I25.810 Atherosclerosis of coronary artery bypass graft(s) without angina pectoris
CPT/HCPCS: 80051; 82565; 84520; 85027

== ENCOUNTER 2023-11-23 07:32 | Day surgery (SDC) | payer MEDICARE ==
[2023-11-23] MEDS ORDERED: VERAPAMIL 2.5 MG/ML 2 ML AMP ONE ×2 (08:52)
[2023-11-23] MEDS ORDERED: HEPARIN SODIUM 1,000 UN/ML (10ML VL) ONE ×2 (08:53)
[2023-11-23] MEDS ORDERED: fentaNYL (PF) 50 MCG/ML 2 ML AMP ONE ×2 (08:53)
[2023-11-23] MEDS ORDERED: LIDOCAINE 1% INJ 10MG/ML (20 ML MDV) ONE ×2 (08:53)
[2023-11-23] MEDS: IOPAMIDOL-370 200ML BTL INJ ONE (10:06)
== END 2023-11-23 14:44 | disposition home or self-care (01) ==
LOC: CATHCVL 07:32
PROVIDERS: ATTEND Internal Medicine Interventional Cardiology
DX: I25.810 Atherosclerosis of coronary artery bypass graft(s) without angina pectoris
CPT/HCPCS: 80048; 85025; 93459; 93567

== ENCOUNTER 2024-10-31 09:55 | Observation (INO) | payer MEDICARE ==
[2024-10-31] MEDS: ASPIRIN 81 MG PO STA (10:24)
[2024-10-31] MEDS: NITROGLYCERIN SL TABS 0.4 MG TAB SUBLINGUAL STA ×2 (10:25→10:56)
[2024-10-31] MEDS: SODIUM CHLORIDE 0.9% 1,000 ML IV STA (10:57)
[2024-10-31 11:01] LABS: Basophils # (A) 0.04 10*3/uL (0.00-0.10); Basophils % (A) 0.5 %; Eosinophils # (A) 0.33 10*3/uL (0.04-0.35); Eosinophils % (A) 4.0 %; HCT 40.4 % (37.2-46.3); HGB 13.4 g/dL (12.0-15.0); Lymphocytes # (A) 3.02 10*3/uL (0.90-5.00); Lymphocytes % (A) 37.1 %; MCH 29.9 pg (27.0-32.0); MCHC 33.2 g/dL (32.0-37.0); MCV 90.2 fL (80.0-97.0); Monocytes # (A) 0.84 10*3/uL (0.20-1.00); Monocytes % (A) 10.3 %; Neutrophils # (A) 3.90 10*3/uL (1.80-7.70); Neutrophils % (A) 47.9 %; Platelet Count 257 10*3/uL (140-440); RBC 4.48 10*6/uL (4.10-5.20); RDW 13.6 % (11.5-14.5); WBC 8.15 10*3/uL (4.50-10.00)
[2024-10-31 11:18] LABS: INR 1.0 (<1.2); Partial Thromboplastin Time 23.5 sec (22.0-30.0); Prothrombin Time 10.6 sec (10.0-12.5)
[2024-10-31 11:25] LABS: ALT 69 U/L (4-34); AST 63 U/L (14-36); African American GFR (CKD) 79 (>60 ml/min/1.73 sqM); Albumin 4.1 g/dL (3.5-5.0); Alkaline Phosphatase 102 U/L (38-126); Anion Gap 9 mmol/L; Blood Urea Nitrogen 16 mg/dL (7-17); Calcium 9.6 mg/dL (8.4-10.2); Carbon Dioxide 24 mmol/L (22-30); Chloride 108 mmol/L (98-107); Glucose 102 mg/dL (74-99); Magnesium 2.1 mg/dL (1.6-2.3); Non-African American GFR(CKD) 69 (>60 ml/min/1.73 sqM); Potassium 4.0 mmol/L (3.5-5.1); Sodium 141 mmol/L (137-145); Total Protein 6.7 g/dL (6.3-8.2)
[2024-10-31] MEDS ORDERED: NALOXONE 0.4 MG/ML 1 ML VIAL IV PRN (11:54)
[2024-10-31] MEDS ORDERED: ONDANSETRON 4 MG/2 ML VIAL IVP PRN (11:54)
--- NOTE | 2024-10-31 11:54 | ED ---
General Adult HPI - General Chief complaint: Chest Pain Stated complaint: Chest pain Time Seen by Provider: 10/31/24 10:10 Source: patient, family, RN notes reviewed, old records reviewed Mode of arrival: ambulatory Limitations: no limitations - History of Present Illness Initial comments: 69-year-old female presents emergency department complaining of chest pain. Patient has a history of CAD with CABG, hypertension, hyperlipidemia. States she began experiencing some left-sided chest discomfort that she describes as a pressure sensation starting this morning at approximately 730. States it is a 6 out of 10. Denies radiation. Denies any associated nausea or vomiting. Denies any diaphoresis. Presents for further evaluation at this time. Follows with Dr. Stokes. No palliative or provocative factors for the chest pain. Denies a ny cough, congestion, shortness of breath. Denies any abdominal pain. Presents for further evaluation at this time. - Related Data Home Medications Medication Instructions Recorded Confirmed Calcium Carbonate [Calcium] 600 mg PO DAILY 10/31/24 10/31/24 Cholecalciferol (Vitamin D3) 50 mcg PO DAILY 10/31/24 10/31/24 [Vitamin D3 (50 Mcg = 2000 Iu)] Ezetimibe [Zetia] 10 mg PO PC-BRKFST 10/31/24 10/31/24 Magnesium (Unknown Dose) 1 tab PO HS 10/31/24 10/31/24 Metoprolol Tartrate [Lopressor] 25 mg PO PC-BID 10/31/24 10/31/24 Strontium Citrate (Unknown Dose) 1 tab PO DAILY 10/31/24 10/31/24 Turmeric Root Extract [Turmeric] 500 mg PO HS 10/31/24 10/31/24 Ubidecarenone [Coenzyme Q10] 200 mg PO DAILY 10/31/24 10/31/24 Vitamin D3/Vitamin K2 (Mk4) 1 tab PO DAILY 10/31/24 10/31/24 [Vitamin K2 Plus D3 Tablet] Allergies Allergy/AdvReac Type Severity Reaction Status Date / Time latex AdvReac Unknown Verified 10/31/24 11:19 Review of Systems ROS Statement: Those systems with pertinent positive or pertinent negative responses have been documented in the HPI. Review of Systems: CONST: Denies fever EYES: Denies blurry vision ENT: Denies nasal congestion C/V: Endorses chest pain RESP: Denies shortness of breath GI: Denies abdominal pain : Denies dysuria SKIN: Denies rash. MSK: Denies joint pain. NEURO: Denies headache ROS Other: All systems not noted in ROS Statement are negative. Past Medical History Past Medical History: Chest Pain / Angina, Hyperlipidemia, Hypertension, Liver Disease, Renal Disease History of Any Multi-Drug Resistant Organisms: None Reported Past Surgical History: Coronary Bypass/CABG, Tonsillectomy Past Anesthesia/Blood Transfusion Reactions: No Reported Reaction Past Psychological History: No Psychological Hx Reported Past Alcohol Use History: None Reported Past Drug Use History: None Reported - Past Family History Mother Family Medical History: COPD Father Family Medical History: Coronary Artery Disease (CAD), Myocardial Infarction ([place]) Additional Family Medical History / Comment(s): age 58 passed from [place] Brother(s) Family Medical History: Myocardial Infarction ([place]) Additional Family Medical History / Comment(s): [place] age 43 Sister(s) Additional Family Medical History / Comment(s): PVD Son(s) Family Medical History: No Reported History Daughter(s) Family Medical History: No Reported History General Exam - General Exam Comments Initial Comments: General: Appears in no acute distress. HEAD: Normal with no signs of head trauma. EYES: EOMI ENT: Hearing grossly intact, normal oropharynx. RESPIRATORY: Clear breath sounds bilaterally. No wheezes, rales, or rhonchi. C/V: Regular rate and rhythm. S1 and S2 auscultated, no edema, peripheral pulses 2+ and intact throughout ABD: Abd is soft, nontender, nondistended EXT: Normal range of motion, no obvious deformity SKIN: No rashes or lesions observed on exposed skin. NEURO: Alert and oriented x 4. Limitations: no limitations Course Vital Signs 10/31/24 10/31/24 10/31/24 10:03 10:49 10:58 Temperature 98 F Pulse Rate 73 68 66 Respiratory 16 16 16 Rate Blood Pressure 158/88 148/87 128/79 O2 Sat by Pulse 98 94 L 95 Oximetry 10/31/24 13:34 Temperature Pulse Rate 77 Respiratory 18 Rate Blood Pressure O2 Sat by Pulse 100 Oximetry Medical Decision Making - Medical Decision Making Was pt. sent in by a medical professional or institution (, PA, SOFTWARE PROJECT ENGINEER, urgent care, hospital, or detention...) When possible be specific @ -No Did you speak to anyone other than the patient for history (EMS, parent, family, police, friend...)? What history was obtained from this source @ -No Did you review nursing and triage notes (agree or disagree)? Why? @ -I reviewed and agree with nursing and triage notes Were old charts reviewed (outside hosp., previous admission, EMS record, old E KG, old radiological studies, urgent care reports/EKG's, detention records)? Report findings @ -Today's EKG compared with EKG from October 2018 with no significant acute change. Differential Diagnosis (chest pain, altered mental status, abdominal pain women, abdominal pain men, vaginal bleeding, weakness, fever, dyspnea, syncope, headache, dizziness, GI bleed, back pain, seizure, CVA, palpatations, mental health, musculoskeletal)? @ -Differential Chest Pain: Stable Angina, Unstable Angina, STEMI, NSTEMI Aortic Dissection, Pneumothorax, Musculoskeletal, Esophageal Spasm GERD, Cholecystitis, Pancreatitis, Zoster, this is not meant to be an all-inclusive list. EKG interpreted by me (3pts min.). @ -As above X-rays interpreted by me (1pt min.). @ -Chest x-ray reveals no obvious acute cardiopulmonary process. CT interpreted by me (1pt min.). @ -None done U/S interpreted by me (1pt. min.). @ -None done What testing was considered but not performed or refused? (CT, X-rays, U/S, labs)? Why? @ -None What meds were considered but not given or refused? Why? @ -None Did you discuss the management of the patient with other professionals (professionals i.e. , PA, SOFTWARE PROJECT ENGINEER, lab, RT, psych nurse, social work instructor, reaming machine operator for plastic, teacher, senior loan officer, lead case manager)? Give summary @ -Discussed with admitting team, Dr. Leung of [facility] who accepted the admission. Was smoking cessation discussed for >3mins.? @ -No Was critical care preformed (if so, how long)? @ -No Were there social determinants of health that impacted care today? How? (Homelessness, low income, unemployed, alcoholism, drug addiction, transportation, low edu. Level, literacy, decrease access to med. care, shelter, rehab)? @ -No Was there de-escalation of care discussed even if they declined (Discuss DNR or withdrawal of care, Hospice)? DNR status @ -No What co-morbidities impacted this encounter? (DM, HTN, Smoking, COPD, CAD, Cancer, CVA, ARF, Chemo, Hep., AIDS, mental health diagnosis, sleep apnea, morbid obesity)? @ -CABG, hypertension, hyperlipidemia Was patient admitted / discharged? Hospital course, mention meds given and route, prescriptions, significant lab abnormalities, going to OR and other pertinent info. @ -Presents to the emergency department complaining of chest pain. Patient will be given 324 mg of aspirin, sublingual nitroglycerin, as well as a cardiac workup. Vitals are within acceptable limits. Patient was in agreement this plan. Patient received 2 sublingual nitroglycerin tablets which improved symptoms. Chest pain is now a 1 out of 10. EKG shows no signs of acute ischemia. Laboratory studies are all within acceptable limits including undetectable troponin. Chest x-ray unremarkable. On reevaluation, patient is feeling improved. Patient's heart score is 4-5 and I did recommend admission. Patient was in agreement this plan. Will continue with Nitropaste, cardiology consult, echo ordered. I spoke with the admitting provider, [facility] Dr. Leung who accepted the admission. Undiagnosed new problem with uncertain prognosis? @ -No Drug Therapy requiring intensive monitoring for toxicity (Heparin, Nitro, Insulin, Cardizem)? @ -No Were any procedures done? @ -No Diagnosis/symptom? @ -Chest pain Acute, or Chronic, or Acute on Chronic? @ -Acute Uncomplicated (without systemic symptoms) or Complicated (systemic symptoms)? @ -Complicated Side effects of treatment? @ -No Exacerbation, Progression, or Severe Exacerbation? @ -No Poses a threat to life or bodily function? How? (Chest pain, [place], [place], pneumonia, PE, COPD, DKA, ARF, appy, cholecystitis, CVA, Diverticulitis, Homicidal, Suicidal, threat to staff... and all critical care pts) @ -Potentially, yes - Lab Data Result diagrams: 10/31/24 10:43 10/31/24 10:43 Lab Results 10/31/24 10/31/24 10/31/24 Range/Units 10:43 10:43 10:43 WBC 8.15 (4.50-10.00) 10*3/uL RBC 4.48 (4.10-5.20) 10*6/uL Hgb 13.4 (12.0-15.0) g/dL Hct 40.4 (37.2-46.3) % MCV 90.2 (80.0-97.0) fL MCH 29.9 (27.0-32.0) pg MCHC 33.2 (32.0-37.0) g/dL Plt Count 257 (140-440) 10*3/uL MPV 9.8 (9.5-12.2) fL Immature Gran % (Auto) 0.2 % Neutrophils % 47.9 % Lymphocytes % 37.1 % Monocytes % 10.3 % Eosinophils % 4.0 % Basophils % 0.5 % Immature Gran # 0.02 (0.00-0.04) 10*3/uL Neutrophils # 3.90 (1.80-7.70) 10*3/uL Lymphocytes # 3.02 (0.90-5.00) 10*3/uL Monocytes # 0.84 (0.20-1.00) 10*3/uL Eosinophils # 0.33 (0.04-0.35) 10*3/uL Basophils # 0.04 (0.00-0.10) 10*3/uL PT 10.6 (10.0-12.5) sec INR 1.0 (<1.2) APTT 23.5 (22.0-30.0) sec Sodium 141 (137-145) mmol/L Potassium 4.0 (3.5-5.1) mmol/L Chloride 108 H (98-107) mmol/L Carbon Dioxide 24 (22-30) mmol/L Anion Gap 9 mmol/L BUN 16 (7-17) mg/dL Creatinine 0.88 (0.52-1.04) mg/dL Est GFR (CKD-EPI)AfAm 79 (>60 ml/min/1.73 sqM) Est GFR (CKD-EPI)NonAf 69 (>60 ml/min/1.73 sqM) Glucose 102 H (74-99) mg/dL Calcium 9.6 (8.4-10.2) mg/dL Magnesium 2.1 (1.6-2.3) mg/dL Total Bilirubin 0.6 (0.2-1.3) mg/dL AST 63 H (14-36) U/L ALT 69 H (4-34) U/L Alkaline Phosphatase 102 (38-126) U/L Troponin I (0.000-0.034) ng/mL Total Protein 6.7 (6.3-8.2) g/dL Albumin 4.1 (3.5-5.0) g/dL 10/31/24 Range/Units 10:43 WBC (4.50-10.00) 10*3/uL RBC (4.10-5.20) 10*6/uL Hgb (12.0-15.0) g/dL Hct (37.2-46.3) % MCV (80.0-97.0) fL MCH (27.0-32.0) pg MCHC (32.0-37.0) g/dL Plt Count (140-440) 10*3/uL MPV (9.5-12.2) fL Immature Gran % (Auto) % Neutrophils % % Lymphocytes % % Monocytes % % Eosinophils % % Basophils % % Immature Gran # (0.00-0.04) 10*3/uL Neutrophils # (1.80-7.70) 10*3/uL Lymphocytes # (0.90-5.00) 10*3/uL Monocytes # (0.20-1.00) 10*3/uL Eosinophils # (0.04-0.35) 10*3/uL Basophils # (0.00-0.10) 10*3/uL PT (10.0-12.5) sec INR (<1.2) APTT (22.0-30.0) sec Sodium (137-145) mmol/L Potassium (3.5-5.1) mmol/L Chloride (98-107) mmol/L Carbon Dioxide (22-30) mmol/L Anion Gap mmol/L BUN (7-17) mg/dL Creatinine (0.52-1.04) mg/dL Est GFR (CKD-EPI)AfAm (>60 ml/min/1.73 sqM) Est GFR (CKD-EPI)NonAf (>60 ml/min/1.73 sqM) Glucose (74-99) mg/dL Calcium (8.4-10.2) mg/dL Magnesium (1.6-2.3) mg/dL Total Bilirubin (0.2-1.3) mg/dL AST (14-36) U/L ALT (4-34) U/L Alkaline Phosphatase (38-126) U/L Troponin I <0.012 (0.000-0.034) ng/mL Total Protein (6.3-8.2) g/dL Albumin (3.5-5.0) g/dL - EKG Data -: EKG Interpreted by Me EKG Comments: 12-lead Electrocardiogram Interpretation Note EKG was reviewed and interpreted by myself. 12-lead ECG performed at 10 16 is interpreted by me as revealing normal sinus rhythm at a rate of 68 beats per minute. Indeterminate axis. IN interval is 151 ms, QRS durations 118 ms, QTc is 424 ms.. There were no ST or T wave abnormalities to suggest myocardial ischemia or injury. R wave progression across the precordium was delayed. By my interpretation this EKG is non-diagnostic for acute ischemia. Disposition Clinical Impression: Chest pain Disposition: ADMITTED IP TO THIS HOSP Condition: Stable Time of Disposition: 11:52
--- NOTE | 2024-10-31 12:35 | XR ---
EXAMINATION TYPE: XR chest 2V DATE OF EXAM: 10/31/2024 11:41 AM COMPARISON: Chest radiographs from 10/25/2018. CLINICAL INDICATION: Female, 69 years old with history of Chest Pain; [facility] TECHNIQUE: XR chest 2V Frontal and lateral views of the chest. FINDINGS: Lungs/Pleura: There is no evidence of pleural effusion, focal consolidation, or pneumothorax. Pulmonary vascularity: Unremarkable. Heart/mediastinum: Cardiomediastinal silhouette is unremarkable. Musculoskeletal: No acute osseous pathology. Midline sternotomy wires are noted. Other findings: None oral contrast is seen in the colon. Scattered colonic diverticula present. IMPRESSION: 1. No acute cardiopulmonary disease process. 2. COPD changes. [facility], , 10/31/2024 12:32 PM
[2024-10-31] MEDS ORDERED: MELATONIN 3 MG TABLET PO PRN (12:43)
[2024-10-31] MEDS ORDERED: ACETAMINOPHEN TAB 325 MG TAB PO PRN (12:43)
[2024-10-31] MEDS ORDERED: MAG HYDROX/AL HYDROX/SIMETH 30 ML CUP PO PRN (12:43)
--- NOTE | 2024-10-31 12:47 | P.HPIM ---
History of Present Illness H&P Date: 10/31/24 History of present illness; patient is a 69-year-old lady with past medical history significant for coronary artery disease status post CABG, hypertension who presented to the ER because of chest pain. Patient stated she was all right this morning when while doing her normal activities she started experiencing chest pain that was left-sided, pressure-like, nonradiating, no aggravating or relieving factor associated with this chest pain. There was complaint of shortness of breath at the time. There was no episode of diaphoresis during this episode of chest pain. Patient denies any palpitation. There is no complaint of orthopnea or PND. Denies any nausea, vomiting abdominal pain. Patient denies any complaint of dizziness. There is no complaint of headache. Patient became concerned because of chest pain, EMS was called and patient got 4 baby aspirin and 2 of nitro that lessened her pain. Initial lab work done in the ER showed WBC 8.15, hemoglobin 13.4, platelet count 257, sodium 141, potassium 4, BUN 16, creatinine 0.88, glucose 102 AST 63, ALT 69 troponin 0.012 Chest x-ray done in the ER showed no acute cardiopulmonary process Patient admitted to internal medicine service REVIEW OF SYSTEMS: CONSTITUTIONAL: No fever, no malaise, no fatigue. HEENT: No recent visual problems or hearing problems. Denied any sore throat. CARDIOVASCULAR: Mentioned above. PULMONARY: Mentioned above GASTROINTESTINAL: No diarrhea, no nausea, no vomiting, no abdominal pain. NEUROLOGICAL: No headaches, no weakness, no numbness. HEMATOLOGICAL: Denies any bleeding or petechiae. GENITOURINARY: Denies any burning micturition, frequency, or urgency. MUSCULOSKELETAL/RHEUMATOLOGICAL: Denies any joint pain, swelling, or any muscle pain. ENDOCRINE: Denies any polyuria or polydipsia. The rest of the 14-point review of systems is negative. PHYSICAL EXAMINATION: GENERAL: The patient is alert and oriented x3, not in any acute distress. Well developed, well nourished. HEENT: Pupils are round and equally reacting to light. EOMI. No scleral icterus. No conjunctival pallor. Normocephalic, atraumatic. No pharyngeal erythema. No thyromegaly. CARDIOVASCULAR: S1 and S2 present. No murmurs, rubs, or gallops. PULMONARY: Chest is clear to auscultation, no wheezing or crackles. ABDOMEN: Soft, nontender, nondistended, normoactive bowel sounds. No palpable organomegaly. MUSCULOSKELETAL: No joint swelling or deformity. EXTREMITIES: No cyanosis, clubbing, or pedal edema. NEUROLOGICAL: Gross neurological examination did not reveal any focal deficits. SKIN: No rashes. Assessment and plan Chest pain, rule out acute coronary syndrome Acute transaminitis History of coronary artery disease History of hypertension Monitor vital signs Monitor CBC Monitor CMP Continue telemetry monitoring Serial EKGs Trend troponin Order D-dimer Ordered lipid panel Ordered 2D echo Resume home meds Consult cardiology Labs and medication were reviewed.. Continue same treatment. Continue with symptomatic treatment. Resume home medication. Monitor labs and vitals. DVT and GI prophylaxis. Further recommendations as per clinical course of the patient Dictation was produced using [employer] dictation software. please excuse any grammatical, word or spelling errors. Past Medical History Past Medical History: Chest Pain / Angina, Hyperlipidemia, Hypertension, Liver Disease, Renal Disease History of Any Multi-Drug Resistant Organisms: None Reported Past Surgical History: Coronary Bypass/CABG, Tonsillectomy Past Anesthesia/Blood Transfusion Reactions: No Reported Reaction Past Psychological History: No Psychological Hx Reported Past Alcohol Use History: None Reported Past Drug Use History: None Reported - Past Family History Mother Family Medical History: COPD Father Family Medical History: Coronary Artery Disease (CAD), Myocardial Infarction ([place]) Additional Family Medical History / Comment(s): age 58 passed from [place] Brother(s) Family Medical History: Myocardial Infarction ([place]) Additional Family Medical History / Comment(s): [place] age 43 Sister(s) Additional Family Medical History / Comment(s): PVD Son(s) Family Medical History: No Reported History Daughter(s) Family Medical History: No Reported History Medications and Allergies Home Medications Medication Instructions Recorded Confirmed Type Calcium Carbonate [Calcium] 600 mg PO DAILY 10/31/24 10/31/24 History Cholecalciferol (Vitamin D3) 50 mcg PO DAILY 10/31/24 10/31/24 History [Vitamin D3 (50 Mcg = 2000 Iu)] Ezetimibe [Zetia] 10 mg PO PC-BRKFST 10/31/24 10/31/24 History Magnesium (Unknown Dose) 1 tab PO HS 10/31/24 10/31/24 History Metoprolol Tartrate [Lopressor] 25 mg PO PC-BID 10/31/24 10/31/24 History Strontium Citrate (Unknown Dose) 1 tab PO DAILY 10/31/24 10/31/24 History Turmeric Root Extract [Turmeric] 500 mg PO HS 10/31/24 10/31/24 History Ubidecarenone [Coenzyme Q10] 200 mg PO DAILY 10/31/24 10/31/24 History Vitamin D3/Vitamin K2 (Mk4) 1 tab PO DAILY 10/31/24 10/31/24 History [Vitamin K2 Plus D3 Tablet] Allergies Allergy/AdvReac Type Severity Reaction Status Date / Time latex AdvReac Unknown Verified 10/31/24 11:19 Physical Exam Vitals: Vital Signs Temp Pulse Resp BP Pulse Ox 10/31/24 10:58 66 16 128/79 95 10/31/24 10:49 68 16 148/87 94 L 10/31/24 10:03 98 F 73 16 158/88 98 Intake and Output 10/30/24 10/31/24 10/31/24 22:59 06:59 14:59 Other: Weight 75.75 kg Results CBC & Chem 7: 10/31/24 10:43 10/31/24 10:43 Labs: Abnormal Lab Results - Last 24 Hours (Table) 10/31/24 Range/Units 10:43 Chloride 108 H (98-107) mmol/L Glucose 102 H (74-99) mg/dL AST 63 H (14-36) U/L ALT 69 H (4-34) U/L
[2024-10-31] MEDS: NITROGLYCERIN OINT 1 INCH/GM PACKET TOPICAL SCH (13:28)
[2024-10-31] MEDS: HEPARIN SODIUM,PORCINE 5,000 UNIT/ML 1 ML VIAL SQ SCH (16:00)
[2024-10-31] MEDS: METOPROLOL TARTRATE 25 MG TAB PO SCH (18:18)
[2024-11-01 04:21] LABS: Basophils # (A) 0.03 10*3/uL (0.00-0.10); Basophils % (A) 0.3 %; Eosinophils # (A) 0.46 10*3/uL (0.04-0.35); Eosinophils % (A) 4.6 %; HCT 40.6 % (37.2-46.3); HGB 13.3 g/dL (12.0-15.0); Lymphocytes # (A) 3.71 10*3/uL (0.90-5.00); Lymphocytes % (A) 37.4 %; MCH 29.9 pg (27.0-32.0); MCHC 32.8 g/dL (32.0-37.0); MCV 91.2 fL (80.0-97.0); Monocytes # (A) 0.95 10*3/uL (0.20-1.00); Monocytes % (A) 9.6 %; Neutrophils # (A) 4.75 10*3/uL (1.80-7.70); Neutrophils % (A) 47.9 %; Platelet Count 262 10*3/uL (140-440); RBC 4.45 10*6/uL (4.10-5.20); RDW 13.8 % (11.5-14.5); WBC 9.92 10*3/uL (4.50-10.00)
[2024-11-01 04:39] LABS: ALT 67 U/L (4-34); AST 60 U/L (14-36); African American GFR (CKD) >90 (>60 ml/min/1.73 sqM); Albumin 3.8 g/dL (3.5-5.0); Alkaline Phosphatase 77 U/L (38-126); Anion Gap 9 mmol/L; Blood Urea Nitrogen 16 mg/dL (7-17); Calcium 9.6 mg/dL (8.4-10.2); Carbon Dioxide 24 mmol/L (22-30); Chloride 107 mmol/L (98-107); Glucose 85 mg/dL (74-99); Non-African American GFR(CKD) 79 (>60 ml/min/1.73 sqM); Potassium 4.4 mmol/L (3.5-5.1); Sodium 140 mmol/L (137-145); Total Protein 6.3 g/dL (6.3-8.2)
--- NOTE | 2024-11-01 08:46 | CA ---
Transthoracic Echo Report Name: Niyah Mckeon Age: 69 Gender: F : 1955 Exam Date: 10/31/2024 13:22 Exam Location: [facility] Ht (in): 59 Wt (lb): 167 Ordering Physician: David Cotton MD Attending/Referring Phys: Steel Erector Apprentice Edgar Flower RDCS Procedure CPT: Indications: Chest Pain Cardiac Hx: Technical Quality: Fair Contrast 1: Total Dose (mL): Contrast 2: Total Dose (mL): MEASUREMENTS (Male / Female) Normal Values 2D ECHO LV Diastolic Diameter PLAX 4.3 cm 4.2 - 5.9 / 3.9 - 5.3 cm LV Systolic Diameter PLAX 3.0 cm IVS Diastolic Thickness 0.9 cm 0.6 - 1.0 / 0.6 - 0.9 cm LVPW Diastolic Thickness 1.0 cm 0.6 - 1.0 / 0.6 - 0.9 cm LV Relative Wall Thickness 0.4 RV Internal Dim ED PLAX 2.4 cm LVOT Diameter 1.7 cm LA Systolic Diameter LX 4.1 cm 3.0 - 4.0 / 2.7 - 3.8 cm LV Diastolic Volume MOD BP 56.8 cm??? 67 - 155 / 56 - 104 cm??? LV Systolic Volume MOD BP 20.2 cm??? 22 - 58 / 19 - 49 cm??? LV Ejection Fraction MOD BP 64.4 % >= 55 % LV Cardiac Index MOD BP 1433.4 cm???/min???m??? LV Diastolic Volume MOD 4C 59.3 cm??? LV Systolic Volume MOD 4C 21.9 cm??? LV Ejection Fraction MOD 4C 63.1 % LV Cardiac Index MOD 4C 1467.0 cm???/min???m??? LV Diastolic Length 4C 7.2 cm LV Systolic Length 4C 5.7 cm LV Diastolic Volume MOD 2C 52.4 cm??? LV Systolic Volume MOD 2C 18.0 cm??? LV Ejection Fraction MOD 2C 65.5 % LV Cardiac Index MOD 2C 1345.4 cm???/min???m??? LV Diastolic Length 2C 6.9 cm LV Systolic Length 2C 6.0 cm LA Volume 58.5 cm??? 18 - 58 / 22 - 52 cm??? LA Volume Index 32.3 cm???/m??? 16 - 28 cm???/m??? M-MODE Aortic Root Diameter MM 2.7 cm LA Systolic Diameter MM 4.0 cm LA Ao Ratio MM 1.5 AV Cusp Separation MM 1.3 cm DOPPLER AV Peak Velocity 246.8 cm/s AV Peak Gradient 24.4 mmHg AV Mean Velocity 161.8 cm/s AV Mean Gradient 11.8 mmHg AV Velocity Time Integral 57.2 cm AI Peak Velocity 369.0 cm/s AI Peak Gradient 54.5 mmHg AI Pressure Half Time 512.3 ms LVOT Peak Velocity 107.7 cm/s LVOT Peak Gradient 4.6 mmHg LVOT Velocity Time Integral 23.2 cm LVOT Stroke Volume 51.1 cm??? LVOT Stroke Volume Index 29.9 ml/m??? LVOT Cardiac Index 2000.6 cm???/min???m??? AV Area Cont Eq vti 0.9 cm??? AV Area Cont Eq pk 1.0 cm??? MV Peak Velocity 136.1 cm/s MV Peak Gradient 7.4 mmHg MV Mean Velocity 93.2 cm/s MV Mean Gradient 3.7 mmHg MV Velocity Time Integral 41.5 cm MV Area PHT 6.0 cm??? Mitral E Point Velocity 125.5 cm/s Mitral A Point Velocity 93.2 cm/s Mitral E to A Ratio 1.3 MV Deceleration Time 126.2 ms TR Peak Velocity 238.3 cm/s TR Peak Gradient 22.7 mmHg FINDINGS Left Ventricle Left ventricular ejection fraction is estimated at 60-65 %. Normal left ventricular wall motion. Left ventricular cavity size normal. Mildly increased posterior wall thickness. Right Ventricle Normal right ventricular size and function. Right Atrium Normal right atrial size. No right atrial thrombus or mass seen. Left Atrium Mildly increased left atrial volume. No left atrial thrombus or mass present. Mitral Valve No mitral stenosis. Mild thickening/calcification of the posterior mitral valve leaflet. Mild mitral regurgitation. Aortic Valve Trileaflet aortic valve. Mild aortic stenosis with a peak gradient of 25 mmHg and a mean gradient of 12 mmHg. Mild to moderate aortic regurgitation. Tricuspid Valve No tricuspid stenosis. Mild tricuspid regurgitation. Pulmonic Valve Structurally normal pulmonic valve. No pulmonic stenosis. No pulmonic regurgitation. Pericardium Normal pericardium. No pericardial or pleural effusion. Aorta Normal size aortic root and proximal ascending aorta. CONCLUSIONS Normal biventricular systolic function Aortic sclerosis with mild stenosis and mild to moderate regurgitation Previewed by: Dr. Danilo Peters MD (Electronically Signed) Final Date: 01 November 2024 08:45
[2024-11-01 08:49] VITALS: BP 147/60; PULSE 87; RESP 14; TEMP 98
[2024-11-01] MEDS ORDERED: NON FORMULARY DRUG (Ubidecarenone [Coenzyme Q10] 200 MG Capsule) PO SCH (09:00)
--- NOTE | 2024-11-01 09:53 | P.CRDCN ---
History of Present Illness History of present illness: HISTORY OF PRESENT ILLNESS: This is a 69-year-old female with a past medical history significant for coronary artery disease with previous CABG, valvular heart disease, hyperlipidemia, and obesity. Patient follows in the office with Dr. Stokes. We have been asked to see the patient in consultation for chest pain. Patient examined at the bedside. Patient presented to the hospital with a chief complaint of chest discomfort. She states the pain was in the middle of her chest. She denied any radiation of the pain. She denied having any shortness of breath. She states that she is usually very active and has a lot of land at home and does her daily activities without discomfort. She denies any dizziness or lightheadedness. No episodes of syncope. She does report the pain resolved with nitro. She denies any further episodes of chest pain or pressure. DIAGNOSTICS: - EKG reveals sinus mechanism with no signs of acute ischemia. - Chest xray negative for acute process. COPD changes. - Laboratory data: WBC 8.15. Hemoglobin 13.4. Platelet count 257. Sodium 141. Potassium 4.0. BUN 16. Creatinine 0.88. AST 63. ALT 69. Troponin negative x 3 - Current home cardiac medications include metoprolol tartrate 25 mg twice a day, Zetia 10 mg daily. - Most recent echocardiogram obtained in October 2023 revealing normal EF, mild to moderate TR, moderate AR, mild , mild to moderate MR -Echocardiogram obtained this admission reveals ejection fraction 60 to 65%, mild mitral regurgitation, mild aortic stenosis, mild tricuspid regurgitation - Cardiac catheterization history: November 2023 revealing 100% proximal LAD, 3 patent grafts, patent [place] to LAD, patent VG to PDA, patent VG to D1 REVIEW OF SYSTEMS: At the time of my exam: CONSTITUTIONAL: Denies fever or chills. HEENT: Denies blurred vision, vision changes, or eye pain. Denies hemoptysis CARDIOVASCULAR: Denies chest pain. Denies orthopnea. Denies PND. Denies palpitations RESPIRATORY: Denies shortness of breath. GASTROINTESTINAL: Denies abdominal pain. Denies nausea or vomiting. HEMATOLOGIC: Denies bleeding disorders. GENITOURINARY: Denies any blood in urine. SKIN: Denies pruitis. Denies rash. PHYSICAL EXAM: VITAL SIGNS: Reviewed. GENERAL: Well-developed in no acute distress. HEENT: Head is normocephalic. Pupils are equal, round. Sclerae anicteric. Mucous membranes of the mouth are moist. Neck supple. No JVD or thyromegaly LUNGS: Respirations even and unlabored. Lungs essentially clear to auscultation bilaterally. HEART: Regular rate and rhythm. S1 and S2 heard. ABDOMEN: Soft. Nondistended. Nontender. EXTREMITIES: Normal range of motion. No clubbing or cyanosis. Peripheral pulses intact. No lower extremity edema NEUROLOGIC: Awake and alert. Oriented x 3. ASSESSMENT: Chest pain Coronary artery disease with previous three-vessel CABG in 2019 Hyperlipidemia Valvular heart disease Obesity: BMI 33.7 PLAN: 2D echo obtained and reviewed Continue home cardiac medications Recommended stress testing to be performed. However patient is declining to have stress test performed while in the hospital and is requesting to be discharged home. Patient verbalized understanding of risks of not undergoing stress testing Patient may be discharged home today and follow-up in the office with Dr. Stokes We will sign off. Please reconsult if needed. Nurse practitioner note has been reviewed by physician. Signing provider agrees with the documented findings, assessment, and plan of care documented by [employer] as a scribe. Past Medical History Past Medical History: Chest Pain / Angina, Hyperlipidemia, Hypertension, Liver Disease, Renal Disease History of Any Multi-Drug Resistant Organisms: None Reported Past Surgical History: Coronary Bypass/CABG, Tonsillectomy Past Anesthesia/Blood Transfusion Reactions: No Reported Reaction Past Psychological History: No Psychological Hx Reported Past Alcohol Use History: None Reported Past Drug Use History: None Reported - Past Family History Mother Family Medical History: COPD Father Family Medical History: Coronary Artery Disease (CAD), Myocardial Infarction ([place]) Additional Family Medical History / Comment(s): age 58 passed from [place] Brother(s) Family Medical History: Myocardial Infarction ([place]) Additional Family Medical History / Comment(s): [place] age 43 Sister(s) Additional Family Medical History / Comment(s): PVD Son(s) Family Medical History: No Reported History Daughter(s) Family Medical History: No Reported History Medications and Allergies Home Medications Medication Instructions Recorded Confirmed Type Calcium Carbonate [Calcium] 600 mg PO DAILY 10/31/24 10/31/24 History Cholecalciferol (Vitamin D3) 50 mcg PO DAILY 10/31/24 10/31/24 History [Vitamin D3 (50 Mcg = 2000 Iu)] Ezetimibe [Zetia] 10 mg PO PC-BRKFST 10/31/24 10/31/24 History Magnesium (Unknown Dose) 1 tab PO HS 10/31/24 10/31/24 History Metoprolol Tartrate [Lopressor] 25 mg PO PC-BID 10/31/24 10/31/24 History Strontium Citrate (Unknown Dose) 1 tab PO DAILY 10/31/24 10/31/24 History Turmeric Root Extract [Turmeric] 500 mg PO HS 10/31/24 10/31/24 History Ubidecarenone [Coenzyme Q10] 200 mg PO DAILY 10/31/24 10/31/24 History Vitamin D3/Vitamin K2 (Mk4) 1 tab PO DAILY 10/31/24 10/31/24 History [Vitamin K2 Plus D3 Tablet] Allergies Allergy/AdvReac Type Severity Reaction Status Date / Time latex AdvReac Unknown Verified 10/31/24 11:19 Physical Exam Vitals: Vital Signs Temp Pulse Resp BP Pulse Ox 10/31/24 10:58 66 16 128/79 95 10/31/24 10:49 68 16 148/87 94 L 10/31/24 10:03 98 F 73 16 158/88 98 Intake and Output 10/30/24 10/31/24 10/31/24 22:59 06:59 14:59 Other: Weight 75.75 kg Results 11/01/24 03:30 11/01/24 03:30 Cardiac Enzymes 10/31/24 10/31/24 Range/Units 10:43 10:43 AST 63 H (14-36) U/L Troponin I <0.012 (0.000-0.034) ng/mL Coagulation 10/31/24 Range/Units 10:43 PT 10.6 (10.0-12.5) sec APTT 23.5 (22.0-30.0) sec CBC 10/31/24 Range/Units 10:43 WBC 8.15 (4.50-10.00) 10*3/uL RBC 4.48 (4.10-5.20) 10*6/uL Hgb 13.4 (12.0-15.0) g/dL Hct 40.4 (37.2-46.3) % Plt Count 257 (140-440) 10*3/uL Comprehensive Metabolic Panel 10/31/24 Range/Units 10:43 Sodium 141 (137-145) mmol/L Potassium 4.0 (3.5-5.1) mmol/L Chloride 108 H (98-107) mmol/L Carbon Dioxide 24 (22-30) mmol/L BUN 16 (7-17) mg/dL Creatinine 0.88 (0.52-1.04) mg/dL Glucose 102 H (74-99) mg/dL Calcium 9.6 (8.4-10.2) mg/dL AST 63 H (14-36) U/L ALT 69 H (4-34) U/L Alkaline Phosphatase 102 (38-126) U/L Total Protein 6.7 (6.3-8.2) g/dL Albumin 4.1 (3.5-5.0) g/dL Current Medications Generic Name Dose Route Start Last Admin Trade Name Freq PRN Reason Stop Dose Admin Heparin Sodium (Porcine) 5,000 unit 10/31/24 16:00 Heparin Sodium,Porcine 5,000 Unit/Ml 1 Ml Vial SQ Q8HR ERIC Naloxone HCl 0.2 mg 10/31/24 11:54 Naloxone 0.4 Mg/Ml 1 Ml Vial IV Q2M PRN Opioid Reversal Nitroglycerin 0.5 inch 10/31/24 12:00 Nitroglycerin Oint 1 Inch/Gm Packet TOPICAL Q8H ERIC Ondansetron HCl 4 mg 10/31/24 11:54 Ondansetron 4 Mg/2 Ml Vial IVP Q8HR PRN Nausea And Vomiting Intake and Output 10/30/24 10/31/24 10/31/24 22:59 06:59 14:59 Other: Weight 75.75 kg Patient Weight 11/01/24 06:59 Weight 75.75 kg 10/31/24 10:43 10/31/24 10:43
[2024-11-01] MEDS: EZETIMIBE 10 MG TAB PO SCH (10:07)
[2024-11-01] MEDS: CHOLECALCIFEROL 25 MCG (1000 IU) TABLET PO SCH (10:07)
[2024-11-01] MEDS: CALCIUM CARBONATE 500 MG CHEWABLE PO SCH (10:08)
--- NOTE | 2024-11-02 10:08 | P.DS ---
Providers Date of admission: 10/31/24 11:57 Expected date of discharge: 11/01/24 Attending physician: Bishnu Leung MD Primary care physician: [facility] Course: 69-year-old lady with past medical history significant for coronary artery disease status post CABG, hypertension who presented to the ER because of chest pain. Patient stated she was all right this morning when while doing her normal activities she started experiencing chest pain that was left-sided, pressure- like, nonradiating, no aggravating or relieving factor associated with this chest pain. There was complaint of shortness of breath at the time. There was no episode of diaphoresis during this episode of chest pain. Patient denies any palpitation. There is no complaint of orthopnea or PND. Denies any nausea, vomiting abdominal pain. Patient denies any complaint of dizziness. There is no complaint of headache. Patient became concerned because of chest pain, EMS was called and patient got 4 baby aspirin and 2 of nitro that lessened her pain. Initial lab work done in the ER showed WBC 8.15, hemoglobin 13.4, platelet count 257, sodium 141, potassium 4, BUN 16, creatinine 0.88, glucose 102 AST 63, ALT 69 troponin 0.012 Chest x-ray done in the ER showed no acute cardiopulmonary process Patient admitted to internal medicine service Assessment and plan Chest pain, rule out acute coronary syndrome Acute transaminitis History of coronary artery disease History of hypertension Monitor vital signs Monitor CBC Monitor CMP Continue telemetry monitoring Serial EKGs Trend troponin Order D-dimer Ordered lipid panel Ordered 2D echo Resume home meds Consult cardiology Patient was evaluated by cardiology and recommended 2D echo and stress test; patient however opted not to go through recommended testing and requested discharge understanding risk of complications; patient was cleared by cardiology to 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 Patient Condition at Discharge: Stable Plan - Discharge Summary Discharge Rx Participant: No New Discharge Prescriptions: Continue Ubidecarenone [Coenzyme Q10] 200 mg PO DAILY Turmeric Root Extract [Turmeric] 500 mg PO HS Vitamin D3/Vitamin K2 (Mk4) [Vitamin K2 Plus D3 Tablet] 1 tab PO DAILY Calcium Carbonate [Calcium] 600 mg PO DAILY Ezetimibe [Zetia] 10 mg PO PC-BRKFST Strontium Citrate (Unknown Dose) 1 tab PO DAILY Magnesium (Unknown Dose) 1 tab PO HS Cholecalciferol (Vitamin D3) [Vitamin D3 (50 Mcg = 2000 Iu)] 50 mcg PO DAILY Metoprolol Tartrate [Lopressor] 25 mg PO PC-BID Discharge Medication List Calcium Carbonate [Calcium] 600 mg PO DAILY 10/31/24 [History] Cholecalciferol (Vitamin D3) [Vitamin D3 (50 Mcg = 2000 Iu)] 50 mcg PO DAILY 10/31/24 [History] Ezetimibe [Zetia] 10 mg PO PC-BRKFST 10/31/24 [History] Magnesium (Unknown Dose) 1 tab PO HS 10/31/24 [History] Metoprolol Tartrate [Lopressor] 25 mg PO PC-BID 10/31/24 [History] Strontium Citrate (Unknown Dose) 1 tab PO DAILY 10/31/24 [History] Turmeric Root Extract [Turmeric] 500 mg PO HS 10/31/24 [History] Ubidecarenone [Coenzyme Q10] 200 mg PO DAILY 10/31/24 [History] Vitamin D3/Vitamin K2 (Mk4) [Vitamin K2 Plus D3 Tablet] 1 tab PO DAILY 10/31/24 [History] Follow up Appointment(s)/Referral(s): Gogo Burroughs MD [Primary Care Provider] - 1-2 days Discharge Disposition: HOME SELF-CARE
== END 2024-11-01 18:43 | disposition home or self-care (01) ==
LOC: EC 09:55 → 1SOBS 11:57
PROVIDERS: ADMIT Internal Medicine; ATTEND Internal Medicine
DX: R07.9 Chest pain, unspecified (principal); R74.01 Elevation of levels of liver transaminase levels; I25.10 Atherosclerotic heart disease of native coronary artery without angina pectoris; I08.3 Combined rheumatic disorders of mitral, aortic and tricuspid valves; I10 Essential (primary) hypertension; E66.9 Obesity, unspecified; E78.5 Hyperlipidemia, unspecified; Z68.33 Body mass index [BMI] 33.0-33.9, adult; Z95.1 Presence of aortocoronary bypass graft; Z79.899 Other long term (current) drug therapy; Z91.040 Latex allergy status
CPT/HCPCS: 99285; 36415; 93005; 93306; 85379; 80053 ×2; 83735; 84484; 85025 ×2; 85610; 85730; 71046; G0378 ×2